=== PATIENT | female | born 1940 | race Caucasian/White ===

== ENCOUNTER 2018-06-10 16:13 | Inpatient (IN) | payer MEDICARE ==
--- NOTE | 2018-06-10 16:43 | ED ---
Dizziness - HPI Summary HPI Summary: This is scribe Crescencio Monroe documenting for attending Brian Luna MD. A 78 y/o female accompanied by her daughter presents to ED c.o dizziness. Additionally c/o near syncopal/syncopal episodes, fast HR, cold sweats and generalized weakness. Currently, the patient doesn't know how to describe her symptoms, but she feels weak, not dizzy. As per triage, "Pt c/o abd cramping, diarrhea, palpitations with sweating, nausea, and near syncope. Pt says she has had 3 episodes of these symptoms. Pt recently diagnosed with afib". According to the patient, she has been experiencing dizziness for the past week. Patient was sent to cardiology for swelling in the legs and she was put on stockings and Eliquis. As per daughter, the patient had cold sweats, dizziness, syncopal and near syncope episodes along with a HR topping at 130. It was noted that the patient could not get out of her car to come to ED because of the weakness. Patient did have a 8-month rash. I, Dr. Luna, personally performed the services described in this documentation as scribed in my presence and it is both accurate and complete. - History Of Current Complaint Chief Complaint: EDGeneral Stated Complaint: NEAR SYNCOPE/WEAKNESS Time Seen by Provider: 06/10/18 16:27 Hx Obtained From: Patient Onset/Duration: Still Present, Suddenly Timing: Constant Severity Currently: None Character: Weak, Dizzy Aggravating Factor(s): Nothing Alleviating Factor(s): Nothing Associated Signs And Symptoms: Positive: Change In Medication, Chills - Allergies/Home Medications Allergies/Adverse Reactions: Allergies Allergy/AdvReac Type Severity Reaction Status Date / Time Sulfa (Sulfonamide Allergy Nausea And Verified 06/10/18 16:33 Antibiotics) Vomiting PMH/Surg Hx/FS Hx/Imm Hx Endocrine/Hematology History: Reports: Hx Thyroid Disease - thyroid CA Denies: Hx Diabetes Cardiovascular History: Reports: Hx Hypertension Denies: Hx Pacemaker/ICD GI History: Reports: Hx Diverticulosis, Other GI Disorders - polyps History: Reports: Other Problems/Disorders - overactive bladder, bladder infection Musculoskeletal History: Reports: Other Musculoskeletal History - sciatica Sensory History: Reports: Hx Contacts or Glasses Denies: Hx Hearing Aid Opthamlomology History: Reports: Hx Contacts or Glasses Neurological History: Reports: Hx Nerve Disease - SCIATICA Psychiatric History: Reports: Hx Anxiety Denies: Hx Panic Disorder - Cancer History Cancer Type, Location and Year: THYROID Hx Chemotherapy: Yes Hx Radiation Therapy: Yes - Surgical History Surgery Procedure, Year, and Place: HYSTERECTOMY, THYROID, HAND SURGERY ( FORGETS WHICH HAND) Infectious Disease History: No Infectious Disease History: Denies: Traveled Outside the [place] in Last 30 Days - Family History Known Family History: Positive: Other - no FHx of breast cancer - Social History Alcohol Use: Occasionally Substance Use Type: Reports: None Smoking Status (MU): Never Smoked Tobacco Review of Systems Positive: Chills, Skin Diaphoresis. Negative: Fever Positive: Other - POSITIVE: Subjective tachycardia Positive: Abdominal Pain Positive: Edema Neurological: Other - POSITIVE: Dizziness Positive: Weakness All Other Systems Reviewed And Are Negative: Yes Physical Exam - Summary Physical Exam Summary: Appearance: The patient is well-nourished in no acute distress and in no acute pain. Skin: The skin is warm and dry and skin color reflects adequate perfusion. HEENT: The head is normocephalic and atraumatic. The pupils are equal and reactive. The conjunctivae are clear and without drainage. Nares are patent and without drainage. Mouth reveals moist mucous membranes and the throat is without erythema and exudate. The external ears are intact. The ear canals are patent and without drainage. The tympanic membranes are intact. Neck: The neck is supple with full range of motion and non-tender. There are no carotid bruits. There is no neck vein distension. Respiratory: Chest is non-tender. Lungs are clear to auscultation and breath sounds are symmetrical and equal. Cardiovascular: Heart is regular rate and rhythm. There is no murmur or rub auscultated. There is no peripheral edema and pulses are symmetrical and equal. Abdomen: The abdomen is soft and non-tender. There are normal bowel sounds heard in all four quadrants and there is no organomegaly palpated. Musculoskeletal: There is no back tenderness noted. Extremities are non-tender with full range of motion. There is good capillary refill. There is no peripheral edema or calf tenderness elicited. Neurological: Patient is alert and oriented to person, place and time. The patient has symmetrical motor strength in all four extremities. Cranial nerves are grossly intact. Deep tendon reflexes are symmetrical and equal in all four extremities. Psychiatric: The patient has an appropriate affect and does not exhibit any anxiety or depression. Triage Information Reviewed: Yes Vital Signs On Initial Exam: Initial Vitals Temp Pulse Resp BP Pulse Ox 97.5 F 61 14 171/86 100 06/10/18 16:15 06/10/18 16:15 06/10/18 16:15 06/10/18 16:15 06/10/18 16:15 Vital Signs Reviewed: Yes Diagnostics - Vital Signs Vital Signs Temp Pulse Resp BP Pulse Ox 06/10/18 16:40 98 06/10/18 16:36 52 17 162/105 99 06/10/18 16:35 67 14 98 06/10/18 16:15 97.5 F 61 14 171/86 100 - Laboratory Result Diagrams: 06/10/18 16:48 06/10/18 16:48 Lab Statement: Any lab studies that have been ordered have been reviewed, and results considered in the medical decision making process. - EKG 1624 Cardiac Rate: NL - 61 BPM EKG Interpretation: Junctional rhythm and ventricular coupling Dizzy Course/Dx - Course Course Of Treatment: Ms. Ruth presents with several worrisome sounding episodes of palpitations with near syncope and generally feeling very unwell during them. While I was in the room she had a run of ventricular bigeminy. I' m concerned that she may be having runs of V. tach with which she is very symptomatic and consult the hospitalist for monitoring and workup. - Diagnoses Provider Diagnoses: Syncope, Bigeminy - Provider Notifications Discussed Care Of Patient With: Neetu Chase Time Discussed With Above Provider: 17:32 Instructed by Provider To: Other - Accepts patient for admission. - Critical Care Time Critical Care Time: 30-74 min Discharge - Sign-Out/Discharge Documenting (check all that apply): Patient Departure - ADMIT - Discharge Plan Condition: Stable Disposition: ADMITTED TO [facility] Referrals: Jeniffer Johnston [employer]ER [Primary Care Provider] - - Billing Disposition and Condition Condition: STABLE Disposition: Admitted to [facility]
[2018-06-10 17:03] LABS: ABS Basophils 0 10^3/ul (0-0.2); ABS Eosinophils 0.1 10^3/ul (0-0.6); ABS Lymphocytes 1.2 10^3/ul (1.0-4.8); ABS Monocytes 0.4 10^3/ul (0-0.8); ABS Neutrophils 4.8 10^3/ul (1.5-7.7); ABS Nucleated RBC 0 10^3/ul; Eosinophil % 1.5 % (0-6); Hematocrit 42 % (35-47); Hemoglobin 13.7 g/dl (12.0-16.0); Mean Corpuscular HGB Conc 33 g/dl (31-36); Mean Corpuscular Hemoglobin 30 pg (27-31); Mean Corpuscular Volume 89 fL (80-97); Nucleated Red Blood Cells % 0; Platelet Count 233 10^3/ul (150-450); Red Blood Count 4.66 10^6/ul (4.00-5.40); Red Cell Distribution Width 13 % (10.5-15); White Blood Count 6.6 10^3/ul (3.5-10.8)
[2018-06-10 17:12] LABS: INR 1.15 (0.77-1.02)
[2018-06-10 17:18] LABS: EGFR Non-African American 58.6 (>60)
[2018-06-10] MEDS ORDERED: NS 0.9% 1000 ML* 1,000 ML IV ONE (17:19)
--- OUTSIDE RECORDS SUMMARY | 2018-06-10 17:20 | XMS REPORT ---
:1940 External Reference #:[id number] Author Organization [employer] Address [address] [place] [address] Phone [phone] Care Team Providers Name Role Phone Fawn Santana MD Care Team Information Road Maker Unavailable Jeniffer Johnston NP Primary Care Physician Unavailable Payers Type Date Identification Numbers Payment Provider Subscriber Medicare Primary Policy Number: [id number] Medicare Angella Ruth PayID: [id number] [address] [place] [address] [facility] Policy Number: [id number] [facility] Angella Ruth Group Name: Medicare [id number] PayID: [id number] [place] [address] Problems Date Description Provider Status Onset: 07/20/2016 Displacement of lumbar intervertebral disc YOBANI Muñiz Active without myelopathy Family History Date Family Member(s) Problem(s) Comments General Cancer Father Coronary Artery Disease (CAD) Father due to Colon Cancer () - age 62 Father [place] Mother Hypertension Mother due to Lung Cancer () - age 64 Mother [place] First Daughter Rheumatoid Arthritis Second Daughter Hypercholesterolemia First Brother Hypertension First Brother Hypercholesterolemia Second Brother Hypertension Second Brother Hypercholesterolemia Third Brother Hypertension Third Brother Rheumatoid Arthritis First Sister Arthritis First Sister IN Social History Type Date Description Comments Marital Status Lives With Spouse 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 Cigarette Use Never Smoked Cigarettes ETOH Use Occasionally consumes alcohol Smoking Patient has never smoked Recreational Drug Use Denies Drug Use Daily Caffeine Consumes on average 2 cups of regular coffee per day Exercise Type/Frequency Exercises sporadically depending on the swelling/ Allergies, Adverse Reactions, Alerts Date Description Reaction Status Severity Comments 07/20/2016 NSAIDs active 07/20/2016 Sulfa Antibiotics active 04/14/2018 Macrobid Vomitting active Mild to Moderate Medications Medication Date Status Form Strength Qnty SIG Indications Ordering Provider Eliquis 05/11 Active Tablets 5mg 180ta 1 by Jose Jackson /Jermaine bs mouth Trell, twice a DO FACC day Polyethylene Glycol Active Powder 3350NF 1 heaping Unknown 3350 /0000 tsp 1-2 times daily Levothyroxine Sodium Active Tablets 75mcg Take 1 Unknown /0000 Tablet By Mouth Daily Oxybutynin Chloride Active Tablets 5mg Take 1 Unknown /0000 Tablet By Mouth Twice A Day Triamcinolone Active Cream 0.1% Apply To Unknown Acetonide /0000 Rash On Legs Daily. Alprazolam Active Tablets 0.25mg 1 tab 3 Unknown /0000 times a day as needed Atenolol Active Tablets 25mg 1 daily Unknown /0000 Align Active Capsules 4mg 1 by Unknown /0000 mouth every day as directed Lisinopril-Hydrochlo Active Tablets 10-12.5mg Take 1 Unknown rothiazide /0000 Tablet By Mouth Every Day Gabapentin Hx Capsules 100mg Unknown /0000 - 03/25 Prednisone Hx Tablets 10mg Unknown /0000 - 03/25 Tramadol HCL Hx Tablets 50mg Unknown / - 03/25 Diazepam Hx Tablets 5mg Unknown / - 03/25 Ondansetron Hx Tablets 4mg Unknown /0000 Dispers - 03/25 Amlodipine Besylate Hx Tablets 5mg Unknown / - 03/25 Cyclobenzaprine HCL Hx Tablets 5mg Take 1-2 Unknown /0000 Tablets - By Mouth 03/25 Daily as Directed Tizanidine HCL Hx Tablets 2mg Unknown /0000 - 03/25 Hydrochlorothiazide Hx Tablets 25mg Take 1/2 Unknown /0000 Tablet By - Mouth 05/10 Once Daily For Blood Pressure Medications Administered in Office Medication Date Status Form Strength Qnty SIG Indications Ordering Provider Inj, Administered Injection Jose Jackson Regadenoson, 018 DO Trell 0.1 MG FACC Technetium TC Administered Injection Jose Cai DO Tetrofosmin, FACC Per Unit Dose Up To 40 Millicuries Vital Signs Date Vital Result Comment 05/18/2018 Height 70 inches 5'10" Weight 149.00 lb Heart Rate 60 /min BP Systolic Sitting 132 mmHg Rue reg cuff BP Diastolic Sitting 86 mmHg Rue reg cuff BP Systolic Standing 126 mmHg Rue BP Diastolic Standing 84 mmHg Rue Respiratory Rate 14 /min BMI (Body Mass Index) 21.4 kg/m2 Ejection Fraction 55-60% 05/10/18 04/26/2018 Height 70 inches 5'10" Weight 154.00 lb Heart Rate 78 /min BP Systolic Sitting 152 mmHg BP Diastolic Sitting 70 mmHg Respiratory Rate 18 /min BMI (Body Mass Index) 22.1 kg/m2 07/20/2016 Height 70 inches 5'10" Weight 155.00 lb Heart Rate 76 /min BP Systolic Sitting 142 mmHg BP Diastolic Sitting 80 mmHg Pain Level 5 BMI (Body Mass Index) 22.2 kg/m2 Results Description No Information Procedures Date CPT Code Description Status 05/18/2018 12079 EKG Tracing & Interpretation Completed 05/11/2018 50633 Stress Test Completed 05/11/2018 76756 Myocardial Perfusion Imaging Tomographic (Spect) Completed Multiple Studies 05/10/2018 60353 ECHO Transthoracic, Real-Time 2D With Doppler And Color Completed Flow 05/10/2018 66638 ECHO Transthoracic, Real-Time 2D With Doppler And Color Completed Flow 04/26/2018 18571 EKG Tracing & Interpretation Completed 04/05/2018 41824 Destruction Of Lesions 15+ Completed 08/14/2008 61688 EKG, Interpretation Only Completed Encounters Type Date Location Provider CPT E/M Dx Office Visit 04/26/2018 [facility] [place] [place] [address] R06.02 10:40a [facility] FACC R94.31 I49.3 Office Visit 04/19/2018 10:40a [facility] [place] [address] L57.0 R60.0 Office Visit 04/05/2018 4:10p [facility] [place] [address] R60.0 Z08 Z85.828 L57.0 Office Visit 07/20/2016 10:00a [facility] Cadence Montez PA-C [address] [facility] Office Visit 07/18/2016 11:10a [facility] Jackson, PRESSED OR BLOWN GLASS WORKER [address]923 M54.9 [facility] E89.0 M51.26 N32.81 Office Visit 07/17/2016 11:09a [facility] Andrew hSen, [address] M54.9 Assoc,pc PA Hospitalists E89.0 M51.26 N32.81 Plan of Care Future Appointment(s):05/19/2018 11:30 am - Tony Vaughan MD at [facility] Ukzvhiybqiz25/25/2018 - Jose Cai, FACCI48.0 Paroxysmal atrial fibrillationComments:Do not take any aspirin or NSAID's. The only over the counter pain medication you can take is tylenol (acetaminophen)Follow up:f/u March,I10 Essential (primary) hypertension
--- OUTSIDE RECORDS SUMMARY | 2018-06-10 17:21 | XMS REPORT ---
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 [place] [address] Problems Description No Information Family History Date Family Member(s) Problem(s) Comments : (age 62 Years) Father due to Cancer, Colon Father CAD Father NM Father due to TB () : (age 64 Years) Mother due to Cancer, Lung Mother Hypertension Mother NM Onset: (age 46 Years) First Daughter Rheumatoid Arthritis Second Daughter Hypercholesterolemia Siblings 7 First Brother Hypertension First Brother Hypercholesterolemia Second Brother Hypertension Second Brother Hypercholesterolemia Third Brother Hypertension Third Brother Rheumatoid Arthritis First Sister Sister With Arthritis,NM Social History Type Date Description Comments Marital Status Lives With Spouse Diet Healthy, Well Balanced 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 Goes to Work Status Not Currently Working Cigarette Use Never Smoked Cigarettes ETOH Use rare alcohol Smoking Patient has never smoked Daily Caffeine Consumes on average 2 cups of coffee per day Enjoy Exercising Enjoys exercising more active in [place], rides bikes, plays tennis, walks 2.5 miles daily Allergies, Adverse Reactions, Alerts Date Description Reaction Status Severity Comments 08/03/2016 Sulfa active emesis 04/04/2018 Macrobid active vomitting 10/08/2011 NKDA inactive Medications Medication Date Status Form Strength Qnty SIG Indications Ordering Provider Ciprofloxacin HCL 05/13 Active Tablets 250mg 6tabs 1 by mouth N39.0 Leticia twice a nina Bartholomew M.D., R.D. Lisinopril-Hydroc 05/03 Active Tablets 10-12.5mg 30tab 1 by mouth I10 wnti hlorothiazide s every day [facility] Tizanidine HCL 04/15 Active Capsules 2mg 30cap take 1 s capsule by Jayy Johnston, mouth up [facility] to 3 times per day as needed for muscle spasm Shingrix 04/04 Active Suspension 50mcg 1unit inject Rec s 0.5ml Jayy Johnston intramuscu DIRECT[facility]-Jose Alberto lar Atenolol 04/04 Active Tablets 25mg 30tab 1 by mouth I10 s every day [facility]OMA [facility] Oxybutynin 02/22 Active Tablets 5mg 180ta 1 by mouth F41.9 nt Chloride bs twice a Jayy Johnston, day [facility] Alprazolam 10/15 Active Tablets 0.25mg 30tab 1 by mouth F41.9 s three Jayy Johnston, times a [facility] day as needed anxiety Miralax 10/15 Active Powder 3350NF 1 heaping teaspoon Jayy Johnston, by mouth 1 [facility] or 2 times daily for stools, Levothyroxine 10/23 Active Tablets 75mcg 90tab Take 1 E03.9 Shawnti Sodium s Tablet By Jayy Johnston, Mouth [facility] Daily Align 00 Active Capsules 4mg 1 by mouth Unknown /0000 every day as directed Eliquis Active Tablets 5mg 1 by mouth Unknown /0000 twice a day Keflex 02/28 Hx Capsules 500mg 14cap 1 tab by Delvis s mouth Thais - twice MD geovanni 03/03 day Pyridium 02/25 Hx Tablets 100mg 15tab 1 tab by Jamil9 Delvis s mouth Thais - three MD 03/03 times day as needed Cipro 02/25 Hx Tablets 500mg 6tabs take 1 R31.9 Delvis tablet by Thais - MD france 03/03 every hours for 3 days for infection Oxybutynin 08/21 Hx Tablets ER 10mg 90tab take 1 F41.9 Shawnti Chloride ER 24HR s tablet Jayy Johnston, - once daily [facility] 02/22 Ciprofloxacin HCL 08/03 Hx Tablets 250mg 10tab 1 by mouth N39.0 s twice a Jayy Johnston, - day for [facility] 08/08 urine infection Acetaminophen-Cod 05/08 Hx Tablets 300-30mg 30tab 1 or 2 Shawmaryi eine #3 s before bed Jayy Johnston, - if needed [facility] 10/12 for severe pain Naproxen 05/04 Hx Tablets 500mg 60tab one tab by mary s mouth Jayy Johnston, - twice [facility] 10/12 daily food for pain/infla mmation Tizanidine HCL 04/28 Hx Tablets 2mg 30tab take 1 S39.012A s tablet by Jm, - mouth M.D. 10/12 times daily as needed for muscle spasm Prednisone 04/28 Hx Tablets 20mg 13tab 3 by mouth S39.012A s every day RJamel Johnston, - x 2days, 2 [facility] 10/12 by mouth /2015 every day x 2 days, 1 by mouth every day x 2 days, 1/2 by mouth every day x 2 days Cyclobenzaprine 04/25 Hx Tablets 5mg 30tab take 1-2 Leticia HCL s tablets by Puma, - mouth M.D., 04/28 R.D. /2015 Oxybutynin 10/15 Hx Tablets 5mg 180ta 1 by mouth F41.9 Shawnti Chloride bs twice a Jayy Johnston, - day [facility] 08/21 Amlodipine 10/15 Hx Tablets 5mg 90tab Take 1 I10 wnti Besylate s Tablet By Jayy Johnston, - Mouth Once [facility] 04/04 Daily For Blood Pressure Azithromycin 10/15 Hx Tablets 250mg 6tabs 2 by mouth 486 today then Jayy Johnston, - 1 by mouth [facility] 10/23 daily for 4 days Proventil HFA 10/15 Hx Aerosol 108(90Bas 1unit 2 puffs 486 e) s every 4 Jayy Johnston, - mcg/Act hours if [facility] 10/23 needed cough, wheeze, shortness of breath Meloxicam 10/10 Hx Tablets 15mg 90tab 1 po daily 719.46 s for pain, Jayy Johnston, - take with [facility] 10/23 Citracal + D3 10/08 Hx Tablets 315-250mg daily -Unit Jayy Johnston, - [facility] 10/10 Oxybutynin 03/13 Hx Tablets ER 10mg 90tab take 1 F41.9 Shawnti Chloride ER 24HR s tablet Jayy Johnston, - once daily [facility] 10/15 Prednisone 09/15 Hx Tablets 20mg 10tab 2 tabs po 782.1 s qday x 5 Shaheen, - days FLAMER AFTER LASTING 10/06 Tagamet HB 09/15 Hx Tablets 200mg 10tab 1 tab po 782.1 Maya s bid x 5 Shaheen, - days FLAMER AFTER LASTING 10/06 Levothyroxine 10/03 Hx Tablets 112mcg 1 po qd 244.9 Huma Sodium Geovanni. Camila Woo, 10/06 [facility] /2009 Ativan 10/03 Hx Tablets 0.5mg 270ta 1 by mouth F41.9 bs three Jayy Johnston, - times a [facility] 10/15 day needed anxiety code a Physical Therapy 04/08 Hx Evaluate 723.1 Huma /2008 and treat A. - neck pain, Chilo, 10/03 degenerati [facility] ve disc disease Keflex 03/07 Hx Capsules 500mg 14cap one po bid s for 7 days A. - Chilo, 04/08 [facility]. Ativan 11/19 Hx Tablets 0.5mg 30tab 1 po tid s prn K.W. - anxiety Hansel, 04/08 M.D. Atenolol 10/28 Hx Tabs 25mg 90tab take 1 s tablet A. - once daily Chilo, 04/08 [facility] Synthroid 09/11 Hx Tablets 125mcg 30tab 1 PO qd 244.9 s Camila Louis MD 04/08 Ativan 09/11 Hx Tablets 0.5mg 30tab 1 po tid s prn K.W. - anxiety Hansel, 11/19 M.D. Miralax 09/11 Hx Packet 3350NF TS 17 gm po 564.01 qd prn K.W. - constipati Hansel, 04/08 on, february.. increase as needed to obtain one full BM daily Fine Needle 06/26 Hx Right Huma Aspiration thyroid A. - nodule , 04/08 [facility] Zanaflex 03/20 Hx Tablets 4mg 40tab 1 or two 307.81 s po at hs A. - prn muscle Chilo, 09/11 spasm [facility] Physical Therapy 03/20 Hx neck 307.81 injury K.W. - with spasm Hansel, 04/08 causing M.D. tension headaches. Ditropan XL 03/20 Hx Tablets ER 10mg 90tab one po qd 24HR s for urine Jayy Johnston, - DIRECT[facility] 03/13 Ditropan 10/11 Hx Tablets 5mg 180ta 1bid prn - bs take one K.W. - tablet by Hansel, 03/20 mouth M.Louis twice daily as needed Ambien 09/16 Hx Tablets 10mg 30tab 1 po hs s prn Priscila Hamm, 09/11 M.D. Sonata 04/13 Hx Capsules 10mg 20cap one qhs 780.50 Huma s prn sleep Josafat Woo, 09/18 [facility] Diflucan 10/10 Hx Tablets 150mg 1tabs 1 tablet 616.10 once prn Priscila Hamm, 09/03 M.D. Hydrochlorothiazi 10/10 Hx Tablets 25mg 90tab take one I10 Jeniffer s cristal Johnston - tablet by DEMETRIA-C 05/03 mouth time daily for blood pressure Atenolol 09/05 Hx Tablets 25mg 90tab 1 po qd V70.0 s Josafat Woo, 09/11 [facility].N[facility]P.C. /2007 401.9 Sphygnomanometer, 09/05/2004 - Hx 1units Check BP Luli Francois Home 04/08/2009 Daily Or prn. Ramona Hamm Premarin - Hx Tablets 0.62 30tabs 1 po qd Carrie, O H, 09/03/2005 5mg MD Indocin - Hx Capsules 50mg 180caps 1 po bid Huma A. 09/11/2008 Shailesh WooN.P.CJamel Ditropan XL - Hx TB24 10mg 90.000unit Take 1 Luli Francois 10/11/2007 s tablet by Hansel mouth M.Louis daily Cytomel 25 mcg. - Hx 12/ tab 244 Unknown 10/03/2009 bid .9 Levothyroxine Sodium - Hx Tablets 125m 1 po qd 244 Unknown 10/03/2009 cg .9 Levothyroxine Sodium - Hx Tablets 88mc 90tabs 1 po 244 Shawnti R. 10/23/2014 g daily .9 Storm, [facility] Immunizations CPT Code Status Date Vaccine Lot # [id number] Given 07/02/2017 Influenza Vaccine High Dose PF [id number] 36876 Given 07/11/2016 [place] [address] Given 10/15/2015 Influenza Virus Vaccine, Quadrivalent, 3 Yr > Quad, Preserv Free 12206 Given 04/29/2015 Prevnar-13 Pneumococcal Conjugate Vaccine [id number] 19991 Given 07/13/2014 Influenza Virus Vaccine, Quadrivalent, 3 Yr > Quad, Preserv Free 25732 Given 07/07/2013 Influenza Vaccine-Preservative Free 3 Yrs And Above 64970 Given 07/06/2012 Influenza Vaccine-Preservative Free 3 Yrs And Above 10293 Given 10/08/2011 Tdap (Adacel) [id number] 93449 Given 10/08/2011 Influenza Vaccine-Preservative Free 3 Yrs And [id number] Above 30953 Given 07/28/2010 Influenza Vaccine-Preservative Free 3 Yrs And Above 44197 Given 10/03/2009 Zoster Vaccine [id number] 26654 Given 08/28/2008 Pneumovax 23 (PPSV23) 65+ years or high risk 2 to 64 year old 35401 Given 08/28/2008 Influenza Virus Vaccine, 3 Yrs And Above Vital Signs Date Vital Result Comment 05/13/2018 Weight 152.00 lb Weight in kg's 68.947 BP Systolic 148 mmHg BP Diastolic 84 mmHg Heart Rate 64 /min Body Temperature 97.3 F Respiratory Rate 18 /min O2 % BldC Oximetry 98 % 05/03/2018 Weight 152.00 lb Weight in kg's 68.947 BP Systolic 170 mmHg BP Diastolic 90 mmHg Heart Rate 88 /min Body Temperature 96.9 F Respiratory Rate 16 /min 04/04/2018 Weight 152.00 lb Weight in kg's 68.947 BP Systolic 140 mmHg BP Diastolic 78 mmHg Heart Rate 72 /min Body Temperature 97.1 F Respiratory Rate 16 /min O2 % BldC Oximetry 98 % 03/03/2018 Weight 152.00 lb Weight in kg's 68.947 BP Systolic 148 mmHg BP Diastolic 88 mmHg Heart Rate 66 /min Body Temperature 98.4 F Respiratory Rate 18 /min 02/25/2017 Weight 152.00 lb Weight in kg's 68.947 BP Systolic 126 mmHg BP Diastolic 80 mmHg Heart Rate 78 /min Body Temperature 97.2 F Respiratory Rate 14 /min O2 % BldC Oximetry 99 % 10/12/2016 Weight 155.00 lb Weight in kg's 70.308 BP Systolic 140 mmHg BP Diastolic 68 mmHg Heart Rate 96 /min Body Temperature 96.5 F Respiratory Rate 14 /min Height 68 inches 5'8" BMI (Body Mass Index) 23.6 kg/m2 08/03/2016 Weight 152.00 lb Weight in kg's 68.947 BP Systolic 152 mmHg BP Diastolic 72 mmHg Heart Rate 60 /min Body Temperature 97.2 F Respiratory Rate 16 /min 04/28/2016 Weight 150.00 lb Weight in kg's 68.040 BP Systolic 119 mmHg BP Diastolic 80 mmHg Heart Rate 87 /min 10/15/2015 Weight 157.00 lb Weight in kg's 71.215 BP Systolic 149 mmHg BP Diastolic 88 mmHg Heart Rate 60 /min Height 67.5 inches 5'7.50" BMI (Body Mass Index) 24.2 kg/m2 04/29/2015 Weight 165.00 lb Weight in kg's 74.844 BP Systolic 130 mmHg BP Diastolic 78 mmHg Heart Rate 56 /min 10/23/2014 Weight 163.00 lb Weight in kg's 73.937 BP Systolic 150 mmHg BP Diastolic 80 mmHg Heart Rate 60 /min Height 68.5 inches 5'8.50" BMI (Body Mass Index) 24.4 kg/m2 10/15/2014 Weight 167.00 lb Weight in kg's 75.751 BP Systolic 144 mmHg BP Diastolic 66 mmHg Heart Rate 76 /min Body Temperature 99.7 F Height 69 inches 5'9" BMI (Body Mass Index) 24.7 kg/m2 O2 % BldC Oximetry 97 % 10/10/2013 Weight 165.00 lb Weight in kg's 74.844 BP Systolic 142 mmHg BP Diastolic 70 mmHg Heart Rate 80 /min Height 69 inches 5'9" BMI (Body Mass Index) 24.4 kg/m2 10/10/2012 Weight 164.00 lb Weight in kg's 74.390 BP Systolic 142 mmHg BP Diastolic 72 mmHg Heart Rate 80 /min Height 69 inches 5'9" BMI (Body Mass Index) 24.2 kg/m2 10/08/2011 Weight 162.00 lb Weight in kg's 73.483 BP Systolic 132 mmHg BP Diastolic 68 mmHg Heart Rate 64 /min Height 69 inches 5'9" BMI (Body Mass Index) 23.9 kg/m2 10/06/2010 Weight 161.00 lb Weight in kg's 73.030 BP Systolic 146 mmHg BP Diastolic 74 mmHg Heart Rate 72 /min Height 68.5 inches 5'8.50" BMI (Body Mass Index) 24.1 kg/m2 09/15/2010 Weight 161.00 lb Weight in kg's 73.030 BP Systolic 150 mmHg BP Diastolic 70 mmHg Heart Rate 72 /min Body Temperature 95.9 F 10/03/2009 Weight 152.00 lb Weight in kg's 68.947 BP Systolic 140 mmHg BP Diastolic 84 mmHg Heart Rate 76 /min Body Temperature 96.9 F Height 68.5 inches 5'8.50" BMI (Body Mass Index) 22.8 kg/m2 04/08/2009 Weight 160.00 lb Weight in kg's 72.576 BP Systolic 140 mmHg BP Diastolic 82 mmHg Heart Rate 98 /min 02/25/2009 Weight 165.00 lb Weight in kg's 74.844 BP Systolic 178 mmHg BP Diastolic 88 mmHg Heart Rate 84 /min 09/11/2008 Weight 168.00 lb Weight in kg's 76.205 BP Systolic 126 mmHg BP Diastolic 86 mmHg Heart Rate 78 /min Height 68.5 inches 5'8.50" BMI (Body Mass Index) 25.2 kg/m2 06/07/2008 Weight 178.00 lb Weight in kg's 80.741 BP Systolic 152 mmHg BP Diastolic 88 mmHg Heart Rate 62 /min Height 68.5 inches 5'8.50" BMI (Body Mass Index) 26.7 kg/m2 04/18/2008 Weight 178.00 lb Weight in kg's 80.741 BP Systolic 138 mmHg BP Diastolic 88 mmHg Heart Rate 60 /min Height 68.5 inches 5'8.50" BMI (Body Mass Index) 26.7 kg/m2 03/20/2008 Weight 180.00 lb Weight in kg's 81.648 BP Systolic 124 mmHg BP Diastolic 72 mmHg Heart Rate 80 /min Body Temperature 97.0 F Height 69 inches 5'9" BMI (Body Mass Index) 26.6 kg/m2 09/09/2007 Weight 185.00 lb Weight in kg's 83.916 BP Systolic 142 mmHg BP Diastolic 90 mmHg Heart Rate 60 /min Body Temperature 97.8 F Height 69 inches 5'9" BMI (Body Mass Index) 27.3 kg/m2 05/16/2007 Weight 178.00 lb Weight in kg's 80.741 BP Systolic 120 mmHg BP Diastolic 80 mmHg Heart Rate 80 /min Height 69 inches 5'9" BMI (Body Mass Index) 26.3 kg/m2 04/13/2007 Weight 180.00 lb Weight in kg's 81.648 BP Systolic 130 mmHg BP Diastolic 80 mmHg Heart Rate 80 /min Respiratory Rate 18 /min Height 69 inches 5'9" BMI (Body Mass Index) 26.6 kg/m2 09/03/2005 Weight 184.00 lb Weight in kg's 83.462 BP Systolic 130 mmHg BP Diastolic 80 mmHg Heart Rate 86 /min Respiratory Rate 18 /min Height 69 inches 5'9" BMI (Body Mass Index) 27.2 kg/m2 10/10/2004 Weight 179.00 lb Weight in kg's 81.194 BP Systolic 142 mmHg BP Diastolic 84 mmHg Heart Rate 58 /min Height 69 inches 5'9" BMI (Body Mass Index) 26.4 kg/m2 09/05/2004 Weight 176.00 lb Weight in kg's 79.834 BP Systolic 160 mmHg BP Diastolic 88 mmHg Heart Rate 62 /min Irregular Height 69 inches 5'9" BMI (Body Mass Index) 26.0 kg/m2 Results Test Date Test Result H/L Range Note Urine Culture And 05/13/2018 Urine Culture SEE RESULT BELOW 1 Sensitivities Urine DIP 05/13/2018 Leukocytes 2+ High Neg Urine Nitrites neg Neg Urobilinogen norm Norm Total Protein, Urine tr Neg Urine pH 6 5-6 Urine Blood 250 High Neg Specific Evangeline 1.010 1.01-1.02 Urine Ketones neg Neg Urine Bilirubin neg Neg Urine Glucose norm Norm CBC Auto Diff 04/04/2018 White Blood Count 6.9 10^3/uL 3.5-10.8 Red Blood Count 4.77 10^6/uL 4.00-5.40 Hemoglobin 14.4 g/dL 12.0-16.0 Hematocrit 43 % 35-47 Mean Corpuscular Volume 89 fL 80-97 Mean Corpuscular Hemoglobin 30 pg 27-31 Mean Corpuscular HGB Conc 34 g/dL 31-36 Red Cell Distribution Width 13 % 10.5-15 Platelet Count 239 10^3/uL 150-450 Mean Platelet Volume 7.6 um3 7.4-10.4 Abs Neutrophils 5.1 10^3/uL 1.5-7.7 Abs Lymphocytes 1.2 10^3/uL 1.0-4.8 Abs Monocytes 0.4 10^3/uL 0-0.8 Abs Eosinophils 0.1 10^3/uL 0-0.6 Abs Basophils 0 10^3/uL 0-0.2 Abs Nucleated RBC 0 10^3/uL Granulocyte % 73.7 % 38-83 Lymphocyte % 18.0 % Low 25-47 Monocyte % 5.5 % 0-7 Eosinophil % 2.2 % 0-6 Basophil % 0.6 % 0-2 Nucleated Red Blood Cells % 0 Comp Metabolic Panel 04/04/2018 Sodium 142 mmol/L 139-145 Potassium 3.5 mmol/L 3.5-5.0 Chloride 101 mmol/L 101-111 Co2 Carbon Dioxide 31 mmol/L 22-32 Anion Gap 10 mmol/L 2-11 Glucose 101 mg/dL High 70-100 Blood Urea Nitrogen 20 mg/dL 6-24 Creatinine 0.98 mg/dL High 0.51-0.95 BUN/Creatinine Ratio 20.4 High 8-20 Calcium 9.7 mg/dL 8.6-10.3 Total Protein 7.3 g/dL 6.4-8.9 Albumin 4.8 g/dL 3.2-5.2 Globulin 2.5 g/dL 2-4 Albumin/Globulin Ratio 1.9 1-3 Total Bilirubin 0.70 mg/dL 0.2-1.0 Alkaline Phosphatase 83 U/L 34-104 Alt 15 U/L 7-52 Ast 19 U/L 13-39 Egfr Non- 55.2 >60 Egfr 71.0 >60 2 Lipid Profile (Trig/Chol/HDL) 04/04/2018 Triglycerides 56 mg/dL 3 Cholesterol 216 mg/dL 4 HDL Cholesterol 82.0 mg/dL 5 LDL Cholesterol 123 mg/dL 6 Laboratory test finding 04/04/2018 TSH (Thyroid Stim Horm) 0.40 mcIU/mL 0.34-5.60 7 Hemoglobin A1c (Glyco HGB) 5.6 % 4.0-5.6 8 Magnesium 2.0 mg/dL 1.9-2.7 9 Laboratory test 02/25/2017 Urine Culture And SEE RESULT BELOW 10 finding Sensitivities Urine DIP 02/25/2017 Leukocytes 2+ High Neg Urine Nitrites neg Neg Urobilinogen norm Norm Total Protein, Urine trace Neg Urine pH 7 High 5-6 Urine Blood 250 High Neg Specific Evangeline 1.015 1.01-1.02 Urine Ketones neg Neg Urine Bilirubin neg Neg Urine Glucose norm Norm Comp Metabolic Panel 10/12/2016 Sodium 140 mmol/L 133-145 Potassium 3.4 mmol/L Low 3.5-5.0 Chloride 101 mmol/L 101-111 Co2 Carbon Dioxide 31 mmol/L 22-32 Anion Gap 8 mmol/L 2-11 Glucose 88 mg/dL 70-100 Blood Urea Nitrogen 22 mg/dL 6-24 Creatinine 0.98 mg/dL High 0.51-0.95 BUN/Creatinine Ratio 22.4 High 8-20 Calcium 9.3 mg/dL 8.6-10.3 Total Protein 6.9 g/dL 6.4-8.9 Albumin 4.5 g/dL 3.2-5.2 Globulin 2.4 g/dL 2-4 Albumin/Globulin Ratio 1.9 1-3 Total Bilirubin 0.50 mg/dL 0.2-1.0 Alkaline Phosphatase 74 U/L 34-104 Alt 12 U/L 7-52 Ast 19 U/L 13-39 Egfr Non- 55.5 >60 Egfr 71.3 >60 11 Lipid Profile (Trig/Chol/HDL) 10/12/2016 Triglycerides 88 mg/dL 12 Cholesterol 200 mg/dL 13 HDL Cholesterol 70.9 mg/dL 14 LDL Cholesterol 112 mg/dL 15 Laboratory test 10/12/2016 TSH (Thyroid Stim Horm) 0.41 mcIU/mL 0.34- 5.60 16 finding Laboratory test 08/03/2016 Urine Culture And SEE RESULT BELOW 17 finding Sensitivities Urine DIP 08/03/2016 Leukocytes ++ Neg Urine Nitrites POS Neg Urobilinogen NORM Norm Total Protein, Urine NEG Neg Urine pH 7 High 5-6 Urine Blood 250 High Neg Specific Evangeline 1.01 1.01-1.02 Urine Ketones NEG Neg Urine Bilirubin NEG Neg Urine Glucose NORM Norm Laboratory test finding 07/17/2016 Lactic Acid 1.3 mmol/L 0.5-2.0 18 CBC Auto Diff 07/17/2016 White Blood Count 9.4 10^3/uL 3.5-10.8 Red Blood Count 4.90 10^6/uL 4.0-5.4 Hemoglobin 14.3 g/dL 12.0-16.0 Hematocrit 42 % 35-47 Mean Corpuscular Volume 86 fL 80-97 Mean Corpuscular Hemoglobin 29 pg 27-31 Mean Corpuscular HGB Conc 34 g/dL 31-36 Red Cell Distribution Width 13 % 10.5-15 Platelet Count 278 10^3/uL 150-450 Mean Platelet Volume 7 um3 Low 7.4-10.4 Abs Neutrophils 7.9 10^3/uL High 1.5-7.7 Abs Lymphocytes 0.9 10^3/uL Low 1.0-4.8 Abs Monocytes 0.4 10^3/uL 0-0.8 Abs Eosinophils 0.1 10^3/uL 0-0.6 Abs Basophils 0 10^3/uL 0-0.2 Abs Nucleated RBC 0 10^3/uL Granulocyte % 84.0 % High 38-83 Lymphocyte % 10.1 % Low 25-47 Monocyte % 4.5 % 1-9 Eosinophil % 0.9 % 0-6 Basophil % 0.5 % 0-2 Nucleated Red Blood Cells % 0 Comp Metabolic Panel 07/17/2016 Sodium 133 mmol/L 133-145 Potassium 3.4 mmol/L Low 3.5-5.0 Chloride 99 mmol/L Low 101-111 Co2 Carbon Dioxide 21 mmol/L Low 22-32 Anion Gap 13 mmol/L High 2-11 Glucose 139 mg/dL High 70-100 Blood Urea Nitrogen 14 mg/dL 6-24 Creatinine 0.75 mg/dL 0.51-0.95 BUN/Creatinine Ratio 18.7 8-20 Calcium 9.3 mg/dL 8.6-10.3 Total Protein 7.5 g/dL 6.4-8.9 Albumin 4.5 g/dL 3.2-5.2 Globulin 3.0 g/dL 2-4 Albumin/Globulin Ratio 1.5 1-3 Total Bilirubin 0.70 mg/dL 0.2-1.0 Alkaline Phosphatase 76 U/L 34-104 Alt 13 U/L 7-52 Ast 17 U/L 13-39 Egfr Non- 75.5 >60 Egfr 97.1 >60 19 Laboratory test finding 07/17/2016 Lipase 10 U/L Low 11.0-82.0 C Reactive Protein 1.67 mg/L < 5.00 20 Urinalysis Profile 07/17/2016 Urine Color Straw Urine Appearance Clear Urine Specific Evangeline 1.008 Low 1.010-1.030 Urine pH 6.0 5-9 Urine Urobilinogen Negative Negative Urine Ketones 1+ Negative Urine Protein Negative Negative Urine Leukocytes Negative Negative Urine Blood 2+ Negative Urine Nitrite Negative Negative Urine Bilirubin Negative Negative Urine Glucose 1+(50 mg/dL) Negative Urine White Blood Cell Absent Absent Urine Red Blood Cell 1+(3-5/hpf) Absent Urine Bacteria Absent Absent CBC Auto Diff 10/15/2015 White Blood Count 6.1 10^3/uL 3.5-10.8 Red Blood Count 4.72 10^6/uL 4.0-5.4 Hemoglobin 14.0 g/dL 12.0-16.0 Hematocrit 43 % 35-47 Mean Corpuscular Volume 91 fL 80-97 Mean Corpuscular Hemoglobin 30 pg 27-31 Mean Corpuscular HGB Conc 33 g/dL 31-36 Red Cell Distribution Width 14 % 10.5-15 Platelet Count 219 10^3/uL 150-450 Mean Platelet Volume 7 um3 Low 7.4-10.4 Abs Neutrophils 4.2 10^3/uL 1.5-7.7 Abs Lymphocytes 1.4 10^3/uL 1.0-4.8 Abs Monocytes 0.4 10^3/uL 0-0.8 Abs Eosinophils 0.1 10^3/uL 0-0.6 Abs Basophils 0 10^3/uL 0-0.2 Abs Nucleated RBC 0 10^3/uL Granulocyte % 67.8 % 38-83 Lymphocyte % 23.0 % Low 25-47 Monocyte % 6.7 % 1-9 Eosinophil % 1.9 % 0-6 Basophil % 0.6 % 0-2 Nucleated Red Blood Cells % 0.1 Comp Metabolic Panel 10/15/2015 Sodium 139 mmol/L 133-145 Potassium 3.9 mmol/L 3.5-5.0 Chloride 102 mmol/L 101-111 Co2 Carbon Dioxide 30 mmol/L 22-32 Anion Gap 7 mmol/L 2-11 Glucose 96 mg/dL 70-100 Blood Urea Nitrogen 18 mg/dL 6-24 Creatinine 0.98 mg/dL High 0.51-0.95 BUN/Creatinine Ratio 18.4 8-20 Calcium 9.1 mg/dL 8.6-10.3 Total Protein 6.6 g/dL 6.4-8.9 Albumin 4.4 g/dL 3.2-5.2 Globulin 2.2 g/dL 2-4 Albumin/Globulin Ratio 2.0 1-3 Total Bilirubin 0.40 mg/dL 0.2-1.0 Alkaline Phosphatase 78 U/L 34-104 Alt 16 U/L 7-52 Ast 23 U/L 13-39 Egfr Non- 55.6 >60 Egfr 71.5 >60 21 Lipid Profile (Trig/Chol/HDL) 10/15/2015 Triglycerides 86 mg/dL 22 Cholesterol 193 mg/dL 23 HDL Cholesterol 61.9 mg/dL 24 LDL Cholesterol 114 mg/dL 25 Laboratory test finding 10/15/2015 TSH (Thyroid Stim Horm) 0.49 ?IU/mL 0.34-5.60 Urine DIP 10/15/2015 Leukocytes NEG Neg Urine Nitrites NEG Neg Urobilinogen NORM Norm Total Protein, Urine NEG Neg Urine pH 7 High 5-6 Urine Blood NEG Neg Specific Evangeline 1.02 1.01-1.02 Urine Ketones NEG Neg Urine Bilirubin NEG Neg Urine Glucose NORM Norm CBC No Diff 10/23/2014 White Blood Count 4.9 10^3/uL 4.8-10.8 Red Blood Count 4.92 10^6/uL 4.0-5.4 Hemoglobin 14.3 g/dL 12.0-16.0 Hematocrit 44 % 35-47 Mean Corpuscular Volume 89 fL 80-97 Mean Corpuscular Hemoglobin 29 pg 27-31 Mean Corpuscular HGB Conc 33 g/dL 31-36 Red Cell Distribution Width 13 % 10.5-15 Platelet Count 235 10^3/uL 150-450 Mean Platelet Volume 8 um3 7.4-10.4 Comp Metabolic Panel 10/23/2014 Sodium 139 mmol/L 133-145 Potassium 4.1 mmol/L 3.5-5.0 Chloride 105 mmol/L 101-111 Co2 Carbon Dioxide 26 mmol/L 22-32 Anion Gap 8 mmol/L 2-11 Glucose 103 mg/dL High 70-100 Blood Urea Nitrogen 16 mg/dL 6-24 Creatinine 1.03 mg/dL High 0.51-0.95 BUN/Creatinine Ratio 15.5 8-20 Calcium 9.1 mg/dL 8.6-10.3 Total Protein 6.6 g/dL 6.4-8.9 Albumin 4.1 g/dL 3.2-5.2 Globulin 2.5 g/dL 2-4 Albumin/Globulin Ratio 1.6 1-3 Total Bilirubin 0.70 mg/dL 0.2-1.0 Alkaline Phosphatase 85 U/L 34-104 Alt 14 U/L 7-52 Ast 17 U/L 13-39 Egfr Non- 52.7 >60 Egfr 67.7 >60 26 Laboratory test finding 10/23/2014 TSH (Thyroid Stimulating 0.27 IU/mL Low 0.34-5.60 Horm) Total T3 0.67 ng/mL Low 0.87-1.78 Free T4 1.35 ng/mL High 0.61-1.12 Lipid Profile (Trig/Chol/HDL) 10/23/2014 Triglycerides 87 mg/dL 27 Cholesterol 164 mg/dL 28 HDL Cholesterol 42.6 mg/dL 29 LDL Cholesterol 104 mg/dL 30 Urine DIP 10/23/2014 Specific Evangeline 1.015 1.01-1.02 Urine pH 5 5-6 Leukocytes trace Neg Urine Nitrites neg Neg Total Protein, Urine neg Neg Urine Glucose norm Norm Urine Ketones neg Neg Urobilinogen norm Norm Urine Bilirubin neg Neg Urine Blood trace Neg Laboratory test finding 10/15/2014 Flu Test A&B, [place] neg Laboratory test finding 08/07/2014 Free T4 1.03 ng/mL 0.61-1.12 Total T3 0.79 ng/mL Low 0.87-1.78 Free T3 2.80 pg/mL 2.5-3.9 TSH (Thyroid Stimulating Horm) 0.25 IU/mL Low 0.34-5.60 Laboratory test finding 05/03/2014 TSH (Thyroid 0.09 IU/mL Low 0.34-5.60 Stimulating Horm) Thyroglobulin AB Screen 05/03/2014 Thyroglobulin Antibody <20 IU/mL <22 31 Thyroglobulin Tumor Marker <0.1 ng/mL 32 Urine DIP 10/10/2013 Leukocytes NEG Neg Urine Nitrites NEG Neg Urine pH 7 High 5-6 Total Protein, Urine NEG Neg Urine Glucose NORM Norm Urine Ketones NEG Neg Urobilinogen NORM Norm Urine Bilirubin NEG Neg Urine Blood 50 High Neg Specific Evangeline 1.01 1.01-1.02 Lipid Profile (Trig/Chol/HDL) 10/10/2013 Triglycerides 114 mg/dL 40-200 Cholesterol 183 mg/dL Less than 200 HDL Cholesterol 68 mg/dL High 40-60 33 Cholesterol/HDL Ratio 2.7 Average 1-4.44 LDL Cholesterol 92.2 Less Than 100 34 Comp Metabolic Panel 10/10/2013 Sodium 135 mmol/L 133-145 Potassium 4.1 mmol/L 3.5-5.0 Chloride 103 mmol/L 101-111 Co2 Carbon Dioxide 27.0 mmol/L 22-32 Anion Gap 5.0 mmol/L 2-11 Glucose 81 mg/dL 70-100 Blood Urea Nitrogen 20 mg/dL 6-24 Creatinine 0.90 mg/dL 0.50-1.40 BUN/Creatinine Ratio 22.2 High 8-20 Calcium 9.0 mg/dL 8.1-9.9 Total Protein 5.9 g/dL Low 6.2-8.1 Albumin 4.0 g/dL 3.2-5.2 Globulin 1.9 g/dL Low 2-4 Albumin/Globulin Ratio 2.1 1-3 Total Bilirubin 0.7 mg/dL 0.4-1.5 Alkaline Phosphatase 82 U/L 30-110 Alt 14 U/L 14-54 Ast 20 U/L 12-42 Egfr Non- 61.7 >60 Egfr 79.4 >60 35 CBC No Diff 10/10/2013 White Blood Count 5.3 10^3/uL 4.8-10.8 Red Blood Count 4.49 10^6/uL 4.0-5.4 Hemoglobin 13.0 g/dL 12.0-16.0 Hematocrit 40 % 35-47 Mean Corpuscular Volume 89 fL 80-97 Mean Corpuscular Hemoglobin 29 pg 27-31 Mean Corpuscular HGB Conc 33 g/dL 31-36 Red Cell Distribution Width 14 % 10.5-15 Platelet Count 222 10^3/uL 150-450 Mean Platelet Volume 8 um3 7.4-10.4 CBC No Diff 10/10/2012 White Blood Count 7.1 10^3/uL 4.8-10.8 Red Blood Count 4.64 10^6/uL 4.0-5.4 Hemoglobin 13.8 g/dL 12.0-16.0 Hematocrit 42 % 35-47 Mean Corpuscular Volume 90 fL 80-97 Mean Corpuscular Hemoglobin 30 pg 27-31 Mean Corpuscular HGB Conc 33 g/dL 31-36 Red Cell Distribution Width 13 % 10.5-15 Platelet Count 217 10^3/uL 150-450 Mean Platelet Volume 8 um3 7.4-10.4 Comp Metabolic Panel 10/10/2012 Sodium 138 mmol/L 133-145 Potassium 3.8 mmol/L 3.5-5.0 Chloride 103 mmol/L 101-111 Co2 Carbon Dioxide 28.0 mmol/L 22-32 Anion Gap 7.0 mmol/L 2-11 Glucose 97 mg/dL 70-100 Blood Urea Nitrogen 18 mg/dL 6-24 Creatinine 1.00 mg/dL 0.50-1.40 BUN/Creatinine Ratio 18.0 8-20 Calcium 9.2 mg/dL 8.1-9.9 Total Protein 6.7 g/dL 6.2-8.1 Albumin 4.2 g/dL 3.2-5.2 Globulin 2.5 g/dL 2-4 Albumin/Globulin Ratio 1.7 1-3 Total Bilirubin 0.9 mg/dL 0.4-1.5 Alkaline Phosphatase 86 U/L 30-110 Alt 21 U/L 14-54 Ast 26 U/L 12-42 Egfr Non- 54.8 >60 Egfr 70.5 >60 36 Lipid Profile (Trig/Chol/HDL) 10/10/2012 Triglycerides 80 mg/dL 40-200 Cholesterol 204 mg/dL High Less than 200 HDL Cholesterol 66 mg/dL High 40-60 37 Cholesterol/HDL Ratio 3.1 Average 1-4.44 LDL Cholesterol 122.0 mg/dL High Less Than 100 38 Laboratory test finding 10/10/2012 TSH (Thyroid 0.13 miu/mL Low 0.34-5.60 Stimulating Horm) Urine DIP 10/10/2012 Leukocytes NEG Neg Urine Nitrites NEG Neg Urine pH 5 5-6 Total Protein, Urine NEG Neg Urine Glucose NORM Norm Urine Ketones NEG Neg Urobilinogen NORM Norm Urine Bilirubin NEG Neg Urine Blood NEG Neg Specific Evangeline N/A Low 1.01-1.02 Laboratory test finding 05/06/2012 Thyroglobulin AB Screen SEE BELOW () 39 Thyroglobulin,Tumor Marker 05/06/2012 Thyroglobulin AB SCRN <20 IU/mL < 22 40 Thyroglobulin Tumor Marker <0.1 ng/mL () 41 Surgical 04/05/2012 Surgical <SEE 42 Pathology Pathology NOTE> Laboratory test 10/08/2011 TSH 0.10 MIU/ML Low 0.34-5.60 finding Urine DIP 10/08/2011 Leukocytes + Neg Urine Nitrites NEG Neg Urine pH 5 5-6 Total Protein, Urine TRACE Neg Urine Glucose NORM Norm Urine Ketones NEG Neg Urobilinogen NORM Norm Urine Bilirubin NEG Neg Urine Blood 50+ High Neg Specific Evangeline NA Low 1.01-1.02 Lipid Profile (Trig/Chol/HDL) 10/08/2011 Triglyceride 80 mg/dL 40-200 Cholesterol 209 mg/dL High Less Than 200 43 High Density Lipoprotein 60 mg/dL 40-60 44 Cholesterol/HDL Ratio 3.48 AVERAGE 1-4.44 Low Density Lipoprotein 133 mg/dL High Less Than 100 45 Comp Metabolic Panel 10/08/2011 Sodium 139 mmol/L 135-145 Potassium 4.4 mmol/L 3.5-5.0 Chloride 106 mmol/L 101-111 Co2 (Carbon Dioxide) 27.0 mmol/L 22-32 Anion Gap 6.0 mmol/L 2-11 46 Glucose 98 mg/dL 70-100 BUN 19 mg/dL 6-24 Creatinine 1.0 mg/dL 0.50-1.40 One Over Creatinine 1.00 BUN/Creatinine Ratio 19.0 8-20 Calcium 9.1 mg/dL 8.1-9.9 Total Protein 6.2 GM/DL 6.2-8.1 Albumin 4.2 GM/DL 3.2-5.2 Globulin 2.0 GM/DL 2-4 Albumin/Globulin Ratio 2.1 1-3 Bilirubin Total 0.7 mg/dL 0.4-1.5 47 Alkaline Phosphatase 100 U/L 30-110 Alt (SGPT) 34 U/L 14-54 Ast (Sgot) 37 U/L 12-42 eGFR Non- 55.0 > 60 eGFR 70.7 > 60 48 CBC Auto Diff 10/08/2011 White Blood Count 5.4 CUMM 4.8-10.8 Red Cell Count 4.54 CUMM 4.2-5.4 Hemoglobin 13.7 g/dL 12.0-16.0 Hematocrit 40 % 35-47 Mean Corpuscular Volume 87 um3 79-97 Mean Corpuscular Hemoglob 30 pg 27-31 Mean Corpuscular HGB Cone 35 g/dL 32-36 Redcell Distribution WDTH 13 % 10.5-15 Platelet Count 236 CUMM 150-450 Mean Platelet Volume 7.4 um3 7.4-10.4 Gran % 75.6 % 38-83 Lymph % 17.0 % Low 25-47 Mononuclear % 5.3 % 1-9 Eosinophil % 1.7 % 0-6 Basophil % 0.4 % 0-2 Abs Lymphs 0.9 Low 1.0-4.8 Abs Mononuclear 0.3 0-0.8 Absolute Neutrophil Count 4.1 1.5-7.7 Abs Eosinophils 0.1 0-0.6 Abs Basophils 0 0-0.2 49 Laboratory test finding 03/13/2011 TSH 0.46 MIU/ML 0.34-5.60 Thyroglobulin,Tumor Marker <0.1 ng/mL () 50 CBC With Electronic Diff 10/06/2010 White Blood Count 6.0 CUMM 4.8-10.8 Red Cell Count 4.61 CUMM 4.2-5.4 Hemoglobin 13.8 g/dL 12.0-16.0 Hematocrit 41 % 35-47 Mean Corpuscular Volume 89 um3 79-97 Mean Corpuscular Hemoglob 30 pg 27-31 Mean Corpuscular HGB Cone 34 g/dL 32-36 Redcell Distribution WDTH 14 % 10.5-15 Platelet Count 244 CUMM 150-450 Mean Platelet Volume 6.6 um3 Low 7.4-10.4 Gran % 71.0 % 38-83 Lymph % 20.1 % Low 25-47 Mononuclear % 6.5 % 1-9 Eosinophil % 1.8 % 0-6 Basophil % 0.6 % 0-2 Abs Lymphs 1.2 1.0-4.8 Abs Mononuclear 0.4 0-0.8 Absolute Neutrophil Count 4.2 1.5-7.7 Abs Eosinophils 0.1 0-0.6 Abs Basophils 0 0-0.2 Comp Metabolic Panel 10/06/2010 Sodium 139 mmol/L 135-145 Potassium 3.7 mmol/L 3.5-5.0 Chloride 103 mmol/L 101-111 Co2 (Carbon Dioxide) 29.0 mmol/L 22-32 Anion Gap 7.0 mmol/L 2-11 51 Glucose 96 mg/dL 70-100 52 BUN 19 mg/dL 6-24 Creatinine 0.90 mg/dL 0.50-1.40 One Over Creatinine 1.10 BUN/Creatinine Ratio 21.1 High 8-20 Calcium 9.3 mg/dL 8.1-9.9 Total Protein 6.5 GM/DL 6.2-8.1 Albumin 4.4 GM/DL 3.2-5.2 Globulin 2.1 GM/DL 2-4 Albumin/Globulin Ratio 2.1 1-3 Bilirubin Total 0.7 mg/dL 0.4-1.5 53 Alkaline Phosphatase 107 U/L 30-110 Alt (SGPT) 26 U/L 14-54 Ast (Sgot) 24 U/L 12-42 eGFR Non- 66.2 > 60 eGFR 80.1 > 60 54 Urine DIP 10/06/2010 Leukocytes TRACE Neg Urine Nitrites NEG Neg Urine pH 5 5-6 Total Protein, Urine NEG Neg Urine Glucose NORM Norm Urine Ketones NEG Neg Urobilinogen NORM Norm Urine Bilirubin NEG Neg Urine Blood 50+ High Neg Specific Evangeline NA Low 1.01-1.02 Laboratory test 10/06/2010 Cytology <SEE NOTE> 55 finding Lipid Profile 10/06/2010 Triglyceride 116 mg/dL 40-200 (Trig/Chol/HDL) Cholesterol 242 mg/dL High Less Than 200 56 High Density Lipoprotein 71 mg/dL High 40-60 57 Cholesterol/HDL Ratio 3.41 AVERAGE 1-4.44 Low Density Lipoprotein 148 mg/dL High Less Than 100 58 Laboratory test finding 06/19/2010 Thyroxine Free 1.15 NG/ML 0.61-1.24 TSH 0.13 MIU/ML Low 0.34-5.60 Laboratory test finding 03/14/2010 TSH 0.06 MIU/ML Low 0.34-5.60 Laboratory test finding 10/03/2009 TSH 0.04 MIU/ML Low 0.34-5.60 Thyroxine Free 1.55 NG/ML High 0.61-1.24 59 Comp Metabolic Panel 10/03/2009 Sodium 139 mmol/L 135-145 Potassium 3.7 mmol/L 3.5-5.0 Chloride 100 mmol/L Low 101-111 Co2 (Carbon Dioxide) 29.0 mmol/L 22-32 Anion Gap 10.0 mmol/L 2-11 60 Glucose 98 mg/dL 70-100 61 BUN 22 mg/dL 6-24 Creatinine 1.00 mg/dL 0.50-1.40 One Over Creatinine 1.00 BUN/Creatinine Ratio 22.0 High 8-20 Calcium 9.6 mg/dL 8.1-9.9 62 Total Protein 6.5 GM/DL 6.2-8.1 Albumin 4.4 GM/DL 3.2-5.2 Globulin 2.1 GM/DL 2-4 Albumin/Globulin Ratio 2.1 1-3 Bilirubin Total 0.9 mg/dL 0.4-1.5 63 Alkaline Phosphatase 128 U/L High 30-110 Alt (SGPT) 27 U/L 14-54 Ast (Sgot) 25 U/L 12-42 eGFR Non- 58.8 > 60 eGFR 71.1 > 60 64 Lipid Profile (Trig/Chol/HDL) 10/03/2009 Triglyceride 98 mg/dL 40-200 Cholesterol 209 mg/dL High Less Than 200 65 High Density Lipoprotein 60 mg/dL 40-60 66 Cholesterol/HDL Ratio 3.48 AVERAGE 1-4.44 Low Density Lipoprotein 129 mg/dL High Less Than 100 67 Urine DIP 10/03/2009 Leukocytes neg Neg Urine Nitrites neg Neg Urine pH 5 5-6 Total Protein, Urine trace Neg Urine Glucose norm Norm Urine Ketones neg Neg Urobilinogen norm Norm Urine Bilirubin neg Neg Urine Blood about 250 Neg Specific Evangeline n/a Low 1.01-1.02 Laboratory test 10/03/2009 Cytology <SEE 68 finding NOTE> Laboratory test 07/29/2009 TSH 0.06 MIU/ML Low 0.34-5.60 finding Urine DIP 03/15/2009 Leukocytes neg Neg Urine Nitrites neg Neg Urine pH 5 5-6 Total Protein, Urine neg Neg Urine Glucose norm Norm Urine Ketones neg Neg Urobilinogen norm Norm Urine Bilirubin neg Neg Urine Blood tace Neg Specific Evangeline n/a Low 1.01-1.02 Laboratory test 03/15/2009 Urine Culture SN1 69 finding Sensitivi Laboratory test 03/04/2009 Urine Culture ENTEROBACTERIACE <SEE 70 finding Sensitivi NOTE> Urine DIP 02/25/2009 Leukocytes neg Neg Urine Nitrites neg Neg Urine pH 5 5-6 Total Protein, Urine neg Neg Urine Glucose norm Norm Urine Ketones neg Neg Urobilinogen norm Norm Urine Bilirubin neg Neg Urine Blood trace Neg Specific Evangeline na Low 1.01-1.02 Laboratory test finding 10/22/2008 Thyroxine Free 1.95 NG/ML High 0.61- 1.24 71 T3 Total 1.10 NG/ML 0.5-1.7 T3 Free 3.31 pg/mL 2.39-6.79 TSH 0.05 MIU/ML Low 0.34-5.60 Laboratory test finding 09/11/2008 TSH 15.18 MIU/ML High 0.34-5.60 Basic Metabolic Panel 09/11/2008 Sodium 137 mmol/L 135-145 Potassium 3.8 mmol/L 3.5-5.0 Chloride 101 mmol/L 101-111 Co2 (Carbon Dioxide) 27.0 mmol/L 22-32 Anion Gap 9.0 mmol/L 2-11 72 Glucose 94 mg/dL 70-100 73 BUN 21 mg/dL 6-24 Creatinine 1.00 mg/dL 0.50-1.40 One Over Creatinine 1.00 BUN/Creatinine Ratio 21.0 High 8-20 Calcium 9.2 mg/dL 8.1-9.9 74 Basic Metabolic Panel Stat 09/08/2008 Sodium 138 mmol/L 135-145 Potassium 3.0 mmol/L Low 3.5-5.0 Chloride 101 mmol/L 101-111 Co2 (Carbon Dioxide) 28.0 mmol/L 22-32 Anion Gap 9.0 mmol/L 2-11 75 Glucose 147 mg/dL High 70-100 76 BUN 12 mg/dL 6-24 Creatinine 0.90 mg/dL 0.50-1.40 One Over Creatinine 1.10 BUN/Creatinine Ratio 13.3 8-20 Calcium 9.2 mg/dL 8.1-9.9 77 CBC With Manual Diff 09/08/2008 White Blood Count 10.5 CUMM 4.8-10.8 Red Cell Count 5.53 CUMM High 4.2-5.4 Hemoglobin 15.9 g/dL 12.0-16.0 Hematocrit 48 % High 35-47 Mean Corpuscular Volume 86 um3 79-97 Mean Corpuscular Hemoglob 29 pg 27-31 Mean Corpuscular HGB Cone 34 g/dL 32-36 Redcell Distribution WDTH 12 % 10.5-15 Platelet Count 282 CUMM 150-450 Mean Platelet Volume 7.0 um3 Low 7.4-10.4 Polysegmented Neutrophil 79 % 38-83 Band Neutrophil 1 % 0-8 Lymphocyte 14 % Low 25-47 Monocyte 2 % 0-13 Atypical Lymph 4 % 0-6 Absolute Neutrophil Count 8.4 Anisocytosis SLIGHT Thyroid Panel 09/08/2008 Free Thyroxine 0.47 NG/ML Low 0.61-1.24 78 Thyroxine 5.2 g/dL 5-12 TSH 27.33 MIU/ML High 0.34-5.60 Laboratory test finding 09/08/2008 Troponin-I (TnI) 0.09 NG/ML High 0- 0.06 79 CMP Stat 09/02/2008 Sodium 140 mmol/L 135-145 Potassium 3.6 mmol/L 3.5-5.0 Chloride 104 mmol/L 101-111 Co2 (Carbon Dioxide) 27.0 mmol/L 22-32 Anion Gap 9.0 mmol/L 2-11 80 Glucose 119 mg/dL High 70-100 81 BUN 22 mg/dL 6-24 Creatinine 1.00 mg/dL 0.50-1.40 One Over Creatinine 1.00 BUN/Creatinine Ratio 22.0 High 8-20 Calcium 9.3 mg/dL 8.1-9.9 82 Total Protein 6.3 GM/DL 6.2-8.1 Albumin 4.0 GM/DL 3.2-5.2 Globulin 2.3 GM/DL 2-4 Albumin/Globulin Ratio 1.7 1-3 Bilirubin Total 0.6 mg/dL 0.4-1.5 Alkaline Phosphatase 98 U/L 30-110 Alt (SGPT) 25 U/L 14-54 Ast (Sgot) 32 U/L 12-42 Laboratory test finding 09/02/2008 PTT (Aptt) Stat 23.1 20.1-28.2 83 Protime 09/02/2008 Protime 11.7 10.9-13.3 Inr 0.93 84 CBC With Electronic Diff Stat 09/02/2008 White Blood Count 9.1 CUMM 4.8- 10.8 Red Cell Count 5.05 CUMM 4.2-5.4 Hemoglobin 14.4 g/dL 12.0-16.0 Hematocrit 43 % 35-47 Mean Corpuscular Volume 85 um3 79-97 Mean Corpuscular Hemoglob 29 pg 27-31 Mean Corpuscular HGB Cone 34 g/dL 32-36 Redcell Distribution WDTH 12 % 10.5-15 Platelet Count 266 CUMM 150-450 Mean Platelet Volume 7.1 um3 Low 7.4-10.4 Gran % 68.9 % 38-83 Lymph % 22.3 % Low 25-47 Mononuclear % 6.1 % 1-9 Eosinophil % 2.0 % 0-6 Basophil % 0.7 % 0-2 Abs Lymphs 2.0 1.0-4.8 Abs Mononuclear 0.6 0-0.8 Absolute Neutrophil Count 6.2 1.5-7.7 Abs Eosinophils 0.2 0-0.6 Abs Basophils 0.1 0-0.2 Laboratory test finding 08/28/2008 Calcium 8.6 mg/dL 8.1-9.9 85 Laboratory test finding 08/27/2008 Calcium 8.5 mg/dL 8.1-9.9 86 Laboratory test finding 08/27/2008 Calcium 8.9 mg/dL 8.1-9.9 87 Laboratory test finding 08/27/2008 Calcium 9.0 mg/dL 8.1-9.9 88 CBC With Electronic Diff 08/14/2008 White Blood Count 6.6 CUMM 4.8-10.8 89 Red Cell Count 4.76 CUMM 4.2-5.4 89 Hemoglobin 13.9 g/dL 12.0-16.0 89 Hematocrit 41 % 35-47 89 Mean Corpuscular Volume 86 um3 79-97 89 Mean Corpuscular Hemoglob 29 pg 27-31 89 Mean Corpuscular HGB Cone 34 g/dL 32-36 89 Redcell Distribution WDTH 13 % 10.5-15 89 Platelet Count 260 CUMM 150-450 89 Mean Platelet Volume 7.0 um3 Low 7.4-10.4 89 Gran % 75.9 % 38-83 89 Lymph % 17.1 % Low 20-45 89 Mononuclear % 5.5 % 1-9 89 Eosinophil % 1.2 % 0-6 89 Basophil % 0.3 % 0-2 89 Abs Lymphs 1.1 1.0-4.8 89 Abs Mononuclear 0.4 0-0.8 89 Absolute Neutrophil Count 5.0 1.5-7.7 89 Abs Eosinophils 0.1 0-0.6 89 Abs Basophils 0 0-0.2 89, 90 Basic Metabolic Panel 08/14/2008 Sodium 141 mmol/L 135-145 89 Potassium 4.3 mmol/L 3.5-5.0 89 Chloride 102 mmol/L 101-111 89 Co2 (Carbon Dioxide) 31.0 mmol/L 22-32 89 Anion Gap 8.0 mmol/L 2-11 89, 91 Glucose 96 mg/dL 70-100 89, 92 BUN 22 mg/dL 6-24 89 Creatinine 1.1 mg/dL 0.5-1.4 89 One Over Creatinine 0.90 89 BUN/Creatinine Ratio 20.0 8-20 89 Calcium 9.6 mg/dL 8.1-9.9 89, 93 Cytology Non Industry Segment Specialist 06/29/2008 Cytology Non Industry Segment Specialist <SEE 94 NOTE> Laboratory test 06/07/2008 TSH 1.43 MIU/ML 0.34-5.6 finding 0 Thyroxine Free 0.77 NG/ML 0.61-1.24 95 Liver Function Panel 06/07/2008 Total Protein 6.3 GM/DL 6.2-8.1 Albumin 3.9 GM/DL 3.2-5.2 Globulin 2.4 GM/DL 2-4 Albumin/Globulin Ratio 1.6 1-3 Bilirubin Total 0.6 mg/dL 0.4-1.5 Bilirubin Direct 0.1 mg/dL 0.1-0.5 Indirect Bilirubin 0.5 mg/dL 0.1-0.75 Alkaline Phosphatase 101 U/L 30-110 Alt (SGPT) 38 U/L 14-54 Ast (Sgot) 38 U/L 12-42 Urine DIP 04/18/2008 Leukocytes NEG Neg Urine Nitrites NGE Neg Urine pH 5 5-6 Total Protein, Urine NEG Neg Urine Glucose NORM Norm Urine Ketones NEG Neg Urobilinogen NORM Norm Urine Bilirubin NEG Neg Urine Blood TRACE Neg Specific Evangeline NA Low 1.01-1.02 Comp Metabolic Panel 04/10/2008 Sodium 140 mmol/L 135-145 Potassium 3.7 mmol/L 3.5-5.0 Chloride 103 mmol/L 101-111 Co2 (Carbon Dioxide) 29.0 mmol/L 22-32 Anion Gap 8.0 mmol/L 2-11 96 Glucose 104 mg/dL 70-105 BUN 18 mg/dL 6-24 Creatinine 1.0 mg/dL 0.5-1.4 One Over Creatinine 1.00 BUN/Creatinine Ratio 18.0 8-20 Calcium 9.2 mg/dL 8.1-9.9 97 Total Protein 6.1 GM/DL Low 6.2-8.1 Albumin 3.9 GM/DL 3.2-5.2 Globulin 2.2 GM/DL 2-4 Albumin/Globulin Ratio 1.8 1-3 Bilirubin Total 0.5 mg/dL 0.4-1.5 Alkaline Phosphatase 123 U/L High 30-110 Alt (SGPT) 43 U/L 14-54 Ast (Sgot) 38 U/L 12-42 Lipid Profile (Trig/Chol/HDL) 04/10/2008 Triglyceride 98 mg/dL 40-200 Cholesterol 198 mg/dL Less Than 200 98 High Density Lipoprotein 43 mg/dL 40-60 99 Cholesterol/HDL Ratio 4.60 AVERAGE High 1-4.44 Low Density Lipoprotein 135 mg/dL High Less Than 100 100 CBC With Electronic Diff 04/10/2008 White Blood Count 5.3 CUMM 4.8-10.8 Red Cell Count 4.59 CUMM 4.2-5.4 Hemoglobin 13.7 g/dL 12.0-16.0 Hematocrit 40 % 35-47 Mean Corpuscular Volume 87 um3 79-97 Mean Corpuscular Hemoglob 30 pg 27-31 Mean Corpuscular HGB Cone 34 g/dL 32-36 Redcell Distribution WDTH 13 % 10.5-15 Platelet Count 241 CUMM 150-450 Mean Platelet Volume 7.4 um3 7.4-10.4 Gran % 70.4 % 38-83 Lymph % 20.1 % 20-45 Mononuclear % 6.2 % 1-9 Eosinophil % 2.8 % 0-6 Basophil % 0.5 % 0-2 Abs Lymphs 1.1 1.0-4.8 Abs Mononuclear 0.3 0-0.8 Absolute Neutrophil Count 3.7 1.5-7.7 Abs Eosinophils 0.1 0-0.6 Abs Basophils 0 0-0.2 Comp Metabolic Panel 09/09/2007 One Over Creatinine 0.90 Anion Gap 8.0 mmol/L 2-11 101 Albumin/Globulin Ratio 1.8 1-3 Albumin 4.2 GM/DL 3.2-5.2 Alkaline Phosphatase 118 U/L High 30-110 Alt (SGPT) 28 U/L 14-54 Ast (Sgot) 28 U/L 12-42 BUN 19 mg/dL 6-24 Calcium 9.8 mg/dL 8.7-10.2 Chloride 103 mmol/L 101-111 Co2 (Carbon Dioxide) 28.0 mmol/L 22-32 Globulin 2.4 GM/DL 2-4 Glucose 94 mg/dL 70-105 Potassium 4.3 mmol/L 3.5-5.0 Sodium 139 mmol/L 135-145 Bilirubin Total 0.8 mg/dL 0.4-1.5 Total Protein 6.6 GM/DL 6.2-8.1 BUN/Creatinine Ratio 17.3 8-20 Creatinine 1.1 mg/dL 0.5-1.4 Liver Function Panel 05/16/2007 Albumin/Globulin Ratio 1.8 1-3 Albumin 4.2 GM/DL 3.2-5.2 Alkaline Phosphatase 98 U/L 30-110 Alt (SGPT) 44 U/L 14-54 Ast (Sgot) 56 U/L High 12-42 Bilirubin Direct < 0.1 mg/dL Low 0.1-0.5 Globulin 2.4 GM/DL 2-4 Bilirubin Total 0.5 mg/dL 0.4-1.5 Total Protein 6.6 GM/DL 6.2-8.1 Renal Function Panel 05/16/2007 BUN 27 mg/dL High 6-24 Calcium 9.3 mg/dL 8.7-10.2 Chloride 103 mmol/L 101-111 Co2 (Carbon Dioxide) 31.0 mmol/L 22-32 Glucose 83 mg/dL 70-105 Potassium 4.2 mmol/L 3.5-5.0 Sodium 140 mmol/L 135-145 Phosphorus 3.4 mg/dL 2.4-4.7 BUN/Creatinine Ratio 24.5 High 8-20 Creatinine 1.1 mg/dL 0.5-1.4 Lipid Profile 04/19/2007 Cholesterol/HDL Ratio 3.79 AVERAGE 1-4.44 102 (Trig/Chol/HDL) Cholesterol 216 mg/dL High Less Than 200 102, 103 Triglyceride 109 mg/dL 40-200 102 High Density Lipoprotein 57 mg/dL 40-60 102 Low Density Lipoprotein 137 mg/dL High Less Than 100 102, 104 Comp Metabolic Panel 04/19/2007 One Over Creatinine 0.90 102 Anion Gap 7.0 mmol/L 2-11 102, 105 Albumin/Globulin Ratio 1.7 1-3 102 Albumin 4.3 GM/DL 3.2-5.2 102 Alkaline Phosphatase 119 U/L High 30-110 102 Alt (SGPT) 47 U/L 14-54 102 Ast (Sgot) 45 U/L High 12-42 102 BUN 26 mg/dL High 6-24 102 Calcium 9.6 mg/dL 8.7-10.2 102 Chloride 106 mmol/L 101-111 102 Co2 (Carbon Dioxide) 28.0 mmol/L 22-32 102 Globulin 2.5 GM/DL 2-4 102 Glucose 95 mg/dL 70-105 102 Potassium 3.8 mmol/L 3.5-5.0 102 Sodium 141 mmol/L 135-145 102 Bilirubin Total 0.8 mg/dL 0.4-1.5 102 Total Protein 6.8 GM/DL 6.2-8.1 102 BUN/Creatinine Ratio 23.6 High 8-20 102 Creatinine 1.1 mg/dL 0.5-1.4 102 CBC With Electronic Diff 04/19/2007 White Blood Count 4.9 CUMM 4.8-10.8 102 Abs Basophils 0 0-0.2 102 Abs Eosinophils 0.1 0-0.6 102 Absolute Neutrophil Count 3.2 1.5-7.7 102 Abs Lymphs 1.2 1.0-4.8 102 Abs Mononuclear 0.4 0-0.8 102 Basophil % 0.6 % 0-2 102 Hematocrit 41 % 35-47 102 Hemoglobin 13.9 g/dL 12.0-16.0 102 Eosinophil % 2.5 % 0-6 102 Gran % 65.4 % 38-83 102 Lymph % 24.3 % 20-45 102 Mean Corpuscular HGB Cone 34 g/dL 32-36 102 Mean Corpuscular Hemoglob 30 pg 27-31 102 Mean Corpuscular Volume 88 um3 79-97 102 Mean Platelet Volume 7.4 um3 7.4-10.4 102 Mononuclear % 7.2 % 1-9 102 Platelet Count 268 CUMM 150-450 102 Red Cell Count 4.67 CUMM 4.2-5.4 102 Redcell Distribution WDTH 13 % 10.5-15 102 Laboratory test finding 04/19/2007 Anti Dna (Double Stranded NEGATIVE Negative 102 Dna) C Reactive Protein < 0.5 mg/dL Less Than 0.5 102 Rheumatoid Factor < 20.0 IU/mL Less Than 20 102 Erythrocyte Sed Rate 7 MM/HR 0-40 102 Surgical Pathology 09/28/2006 Surgical Pathology <SEE 106 NOTE> Laboratory test 09/04/2005 TSH (Thyroid 1.91 finding Stimulating Horm) Lipid Panel 09/04/2005 Cholesterol, Total 211 High Cholesterol/HDL Ratio 3.46 HDL 61 High Low Density Lipoprotein 139 High Triglycerides 54 Statin 09/04/2005 Sgot (Ast) 38 SGPT (Alt) 35 Urine DIP 09/03/2005 Leukocytes NEG Neg Urine Nitrites NEG Neg Urine pH 5 5-6 Total Protein, Urine NL Neg Urine Glucose NL Norm Urine Ketones NL Neg Urobolinogen NL Norm Urine Bilirubin NL Neg Urine Blood NL Neg Specific Evangeline N/A Low 1.01-1.02 Laboratory test finding 09/03/2005 Thin Layer Pap W/Reflex REC'D-SEE IMAGE To HPV For ASCUS Urine DIP 10/10/2004 Leukocytes NEG Neg Urine Nitrites NEG Neg Urine pH 6 5-6 Total Protein, Urine NEG Neg Urine Glucose NORM Norm Urine Ketones NEG Neg Urobolinogen NORM Norm Urine Bilirubin NEG Neg Urine Blood NEG Neg 1 SEE RESULT BELOW Name: ANGELLA SALCIDO : [address]: Leticia Bartholomew MD Acct: [id number] Unit: [id number] AGE: 78 Location: [facility] Re05/13/18 SEX: F Status: REG REF SPEC: [id number] PA: 05/13/18-[address] [facility] [address]: Leticia Batrholomew MD REQ: [id number] RECD: 05/13/18 STATUS: COMP _ SOURCE: URINE [facility]: ORDERED: Urine Culture COMMENTS: [id number] Urine Source: Random Procedure Result Reported Site Urine Culture Final 05/15/18- 0841 ML Organism 1 ESCHERICHIA COLI [place] Count >100,000 (Many) CFU/ML 1. ESCHERICHIA COLI [facility] RX --------- ------ Ampicillin >=32 R Cefazolin <=4 S Cefepime <=1 S Ceftriaxone <=1 S Ciprofloxacin <=0.25 S Gentamicin <=1 S Levofloxacin 0.25 S Meropenem <=0.25 S Nitrofurantoin <=16 S Tetracycline <=1 S Pipercillin/Tazobactam <=4 S Trimethoprim/Sulfamethoxazole >=320 R Amoxicillin/Clavulanic Acid 4 S Aztreonam <=1 S Contact the Microbiology Department for any additional antibiotic reporting. * [facility] - Main Lab . END OF REPORT DEPARTMENT OF PATHOLOGY, [address] [place] [address] Jesus Wilks M.D. Director [facility] # [id number] 2 Because ethnic data is not always readily available, this report includes an eGFR for both -Americans and non- Americans. The National Kidney Disease Education Program (NKDEP) does not endorse the use of the MDRD equation for patients that are not between the ages of 18 and 70, are , have extremes of body size, muscle mass, or nutritional status, or are non- or non-. According to the National Kidney Foundation, irrespective of diagnosis, the stage of the disease is based on the level of kidney function: Stage Description GFR(mL/min/1.73 m(2)) 1 Kidney damage with normal or decreased GFR 90 2 Kidney damage with mild decrease in GFR 60-89 3 Moderate decrease in GFR 30-59 4 Severe decrease in GFR 15-29 5 Kidney failure <15 (or dialysis) 3 Desirable: <150 Borderline High: 150-199 High: 200-499 Very High: >500 4 Desirable: <200 Borderline High: 200-239 High: >239 5 Low: <40 Desirable: 40-60 High: >60 6 Desirable: <100 Near Optimal: 100-129 Borderline High: 130-159 High: 160-189 Very High: >189 7 [id number] Therapeutic target for the treatment of diabetes mellitus patients is <7% HBA1C, and in selective patients <6.0%. Please refer to [place] [employer] diabetic care guidelines for further information. 9 [id number] SEE RESULT BELOW Name: ANGELLA SALCIDO : [address]: Delvis Plascencia MD Acct: [id number] Unit: [id number] AGE: 76 Location: [facility] Re02/25/17 SEX: F Status: REG REF SPEC: [id number] PA: 02/25/17-[address]: Delvis Plascencia MD REQ: [id number] RECD: 02/25/17 STATUS: COMP _ SOURCE: URINE SPDESC: ORDERED: Urine Culture COMMENTS: [id number] Urine Source: Random Procedure Result Reported Site Urine Culture Final 02/27/17- 721 ML Organism 1 ESCHERICHIA COLI [place] Count 75-100,000 (Many) CFU/ML 1. ESCHERICHIA COLI [facility].I[facility]. RX --------- ------ Ampicillin >=32 R Cefazolin <=4 S Cefepime <=1 S Ceftriaxone <=1 S Ciprofloxacin 2 I Gentamicin 2 S Levofloxacin 4 I Meropenem <=0.25 S Nitrofurantoin <=16 S Tetracycline 2 S Pipercillin/Tazobactam <=4 S Trimethoprim/Sulfamethoxazole >=320 R Amoxicillin/Clavulanic Acid 4 S Aztreonam <=1 S Contact the Microbiology Department for any additional antibiotic reporting. * ML - MAIN LAB ([facility]) . END OF REPORT * ML=Testing performed at Main Lab DEPARTMENT OF PATHOLOGY, [address] [place] [address] Jesus Wilks M.D. Director [facility] # [id number] 11 Because ethnic data is not always readily available, this report includes an eGFR for both -Americans and non- Americans. The National Kidney Disease Education Program (NKDEP) does not endorse the use of the MDRD equation for patients that are not between the ages of 18 and 70, are , have extremes of body size, muscle mass, or nutritional status, or are non- or non-. According to the National Kidney Foundation, irrespective of diagnosis, the stage of the disease is based on the level of kidney function: Stage Description GFR(mL/min/1.73 m(2)) 1 Kidney damage with normal or decreased GFR 90 2 Kidney damage with mild decrease in GFR 60-89 3 Moderate decrease in GFR 30-59 4 Severe decrease in GFR 15-29 5 Kidney failure <15 (or dialysis) 12 Desirable <150 Borderline high 150-199 High 200-499 Very High >500 13 Desirable <200 Borderline high 200-239 High >239 14 Low <40 Desirable: 40-60 High: >60 15 Desirable: <100 mg/dL Near Optimal: 100-129 mg/dL Borderline High: 130-159 mg/dL High: 160-189 mg/dL Very High: >189 mg/dL 16 [id number] SEE RESULT BELOW Name: ANGELLA SALCIDO : [address]: Jeniffer Johnston NP Acct: [id number] Unit: [id number] AGE: 76 Location: [facility] Re08/03/16 SEX: F Status: REG REF SPEC: [id number] PA: 08/03/[address]: Jeniffer Johnston NP REQ: [id number] RECD: 08/03/16 STATUS: COMP _ SOURCE: URINE SPDESC: ORDERED: Urine Culture Procedure Result Reported Site Urine Culture Final 08/05/16- 0807 ML Organism 1 ESCHERICHIA COLI [place] Count >100,000 (Many) CFU/ML 1. ESCHERICHIA COLI M.I.C. RX --------- ------ Ampicillin >=32 R Cefazolin <=4 S Cefepime <=1 S Ceftriaxone <=1 S Ciprofloxacin <=0.25 S Gentamicin <=1 S Levofloxacin 0.5 S Meropenem <=0.25 S Nitrofurantoin <=16 S Tetracycline <=1 S Pipercillin/Tazobactam <=4 S Trimethoprim/Sulfamethoxazole >=320 R Amoxicillin/Clavulanic Acid 4 S Aztreonam <=1 S Contact the Microbiology Department for any additional antibiotic reporting. * ML - MAIN LAB ([facility]) . END OF REPORT * ML=Testing performed at Main Lab DEPARTMENT OF PATHOLOGY, [address] [place] [address] Jesus Wilks M.D. Director [facility] # [id number] 18 [facility] Severe Sepsis and Septic Shock Management Bundle Measure requires all lactic acids initially measuring >2.0 mmol/L be repeated. 19 Because ethnic data is not always readily available, this report includes an eGFR for both -Americans and non- Americans. The National Kidney Disease Education Program (NKDEP) does not endorse the use of the MDRD equation for patients that are not between the ages of 18 and 70, are , have extremes of body size, muscle mass, or nutritional status, or are non- or non-. According to the National Kidney Foundation, irrespective of diagnosis, the stage of the disease is based on the level of kidney function: Stage Description GFR(mL/min/1.73 m(2)) 1 Kidney damage with normal or decreased GFR 90 2 Kidney damage with mild decrease in GFR 60-89 3 Moderate decrease in GFR 30-59 4 Severe decrease in GFR 15-29 5 Kidney failure <15 (or dialysis) 20 Acute inflammation: >10.00 21 Because ethnic data is not always readily available, this report includes an eGFR for both -Americans and non- Americans. The National Kidney Disease Education Program (NKDEP) does not endorse the use of the MDRD equation for patients that are not between the ages of 18 and 70, are , have extremes of body size, muscle mass, or nutritional status, or are non- or non-. According to the National Kidney Foundation, irrespective of diagnosis, the stage of the disease is based on the level of kidney function: Stage Description GFR(mL/min/1.73 m(2)) 1 Kidney damage with normal or decreased GFR 90 2 Kidney damage with mild decrease in GFR 60-89 3 Moderate decrease in GFR 30-59 4 Severe decrease in GFR 15-29 5 Kidney failure <15 (or dialysis) 22 Desirable <150 Borderline high 150-199 High 200-499 Very High >500 23 Desirable <200 Borderline high 200-239 High >239 24 Low <40 Desirable: 40-60 High: >60 25 Desirable: <100 mg/dL Near Optimal: 100-129 mg/dL Borderline High: 130-159 mg/dL High: 160-189 mg/dL Very High: >189 mg/dL 26 Because ethnic data is not always readily available, this report includes an eGFR for both -Americans and non- Americans. The National Kidney Disease Education Program (NKDEP) does not endorse the use of the MDRD equation for patients that are not between the ages of 18 and 70, are , have extremes of body size, muscle mass, or nutritional status, or are non- or non-. According to the National Kidney Foundation, irrespective of diagnosis, the stage of the disease is based on the level of kidney function: Stage Description GFR(mL/min/1.73 m(2)) 1 Kidney damage with normal or decreased GFR 90 2 Kidney damage with mild decrease in GFR 60-89 3 Moderate decrease in GFR 30-59 4 Severe decrease in GFR 15-29 5 Kidney failure <15 (or dialysis) 27 Desirable <150 Borderline high 150-199 High 200-499 Very High >500 28 Desirable <200 Borderline high 200-239 High >239 29 Low <40 Desirable: 40-60 High: >60 30 Desirable <100 Near Optimal 100-129 Borderline high 130-159 High 160-189 Very High >189 31 The thyroglobulin testing method is an immunoenzymatic assay manufactured by [employer] and performed on the SocialMedia305 DXI 800. The thyroglobulin antibody testing method is an electrochemiluminescence assay manufactured by [employer] and performed on the Modular or Shannan System. Values obtained from different assay methods or kits may be different and cannot be used interchangeably. The results cannot be interpreted as absolute evidence for the presence or absence of malignant disease. Specimens with thyroglobulin concentrations greater than 250,000 ng/mL may give falsely lower results. Test Performed by: [place] [address] Animal Handler: Chase Franklin III, M.D. 32 -- REFERENCE VALUE -- <=33 Athyrotic individuals normally have hTg values <=2. 33 HDL Interpretation: Undesirable: High Risk: Less than 40 mg/dL Desirable: Low Risk: Greater than 60 mg/dL 34 LDL Interpretation: Low Risk Optimal Level: LDL Less than 100 mg/dL Near or Above Optimal: LDL 100-129 mg/dL Borderline High Risk: LDL 130-159 mg/dL High Risk: LDL 160-189 mg/dL Very High Risk: LDL Greater than 189 mg/dL 35 Because ethnic data is not always readily available, this report includes an eGFR for both -Americans and non- Americans. The National Kidney Disease Education Program (NKDEP) does not endorse the use of the MDRD equation for patients that are not between the ages of 18 and 70, are , have extremes of body size, muscle mass, or nutritional status, or are non- or non-. According to the National Kidney Foundation, irrespective of diagnosis, the stage of the disease is based on the level of kidney function: Stage Description GFR(mL/min/1.73 m(2)) 1 Kidney damage with normal or decreased GFR 90 2 Kidney damage with mild decrease in GFR 60-89 3 Moderate decrease in GFR 30-59 4 Severe decrease in GFR 15-29 5 Kidney failure <15 (or dialysis) 36 Because ethnic data is not always readily available, this report includes an eGFR for both -Americans and non- Americans. The National Kidney Disease Education Program (NKDEP) does not endorse the use of the MDRD equation for patients that are not between the ages of 18 and 70, are , have extremes of body size, muscle mass, or nutritional status, or are non- or non-. According to the National Kidney Foundation, irrespective of diagnosis, the stage of the disease is based on the level of kidney function: Stage Description GFR(mL/min/1.73 m(2)) 1 Kidney damage with normal or decreased GFR 90 2 Kidney damage with mild decrease in GFR 60-89 3 Moderate decrease in GFR 30-59 4 Severe decrease in GFR 15-29 5 Kidney failure <15 (or dialysis) 37 HDL Interpretation: Undesirable: High Risk: Less than 40 MG/DL Desirable: Low Risk: Greater than 60 MG/DL 38 LDL Interpretation: Low Risk Optimal Level: LDL Less than 100 MG/DL Near or Above Optimal: LDL 100-129 MG/DL Borderline High Risk: LDL 130-159 MG/DL High Risk: LDL 160-189 MG/DL Very High Risk: LDL Greater than 189 MG/DL 39 Thyroglobulin Antibody, S was cancelled on 05/07/2012 at 11:42; Test cancelled by RBS rule <TGAB4> Reason: Test TGAB is cancelled due to being ordered with Test HTG1 If thyroglobulin antibody measurement is performed to assess the reliability of the thyroglobulin assay for thyroid cancer patient follow-up, a thyroglobulin antibody result=/>22 IU/mL may result in falsely decreased thyroglobulin values. The thyroglobulin antibody testing method is an electrochemiluminescence assay manufactured by [employer] and performed on the Modular or Shannan system. Values obtained from different assay methods or kits may be different and cannot be used interchangeably. Test Performed by: [address] [address] Animal Handler: Chase Franklin III, M.D. 40 The thyroglobulin testing method is an immunoenzymatic assay manufactured by [employer] and performed on the SocialMedia305 DXI 800. The thyroglobulin antibody testing method is an electrochemiluminescence assay manufactured by [employer] and performed on the Modular or Shannan System. Values obtained from different assay methods or kits may be different and cannot be used interchangeably. The results cannot be interpreted as absolute evidence for the presence or absence of malignant disease. Specimens with thyroglobulin concentrations greater than 250,000 ng/mL may give falsely lower results. 41 -- REFERENCE VALUE -- <=33 Athyrotic individuals normally have hTg values <=2. Test Performed by: [place] [address] Animal Handler: Chase Franklin III, M.D. 42 ---- RUN DATE: 04/06/12 [facility] NMI LIVE PAGE 1 RUN TIME: 1450 Specimen Inquiry RUN USER: INTERFACE -- Name: ANGELLA SALCIDO#: [id number] Status: REG REF Re04/05/12 Age/Sex: 72/F Unit#: [id number] Location: END : 42 -- Specimen: [id number] CORINE Spec Date:04/05/12- Dr: Anthony Mckenzie MD Spec Type: SURGICAL P Received:04/05/12-1340 Copies to: Luli Cooper And megan Akhtar MD SPECIMEN ASCENDING COLON POLYPS HOT SNARE HISTORY POST-OP DIAGNOSIS: Colonoscopy to cecum. Colon polypectomies. Mild left c olon diverticulosis. CLINICAL INFORMATION: Personal history of polyps, 2005. GROSS DESCRIPTION The specimen is received in formalin labelled Angella Salcido, Ascending Colon Polyps, and consists of multiple fragments of yellow tissue measuring in aggregate 1.2 x 1.2 x 0.3 cm. Submitted entirely, one cassette. DIAGNOSIS Ascending colon, biopsy: A. Tubulovillous adenoma. B. No high grade dysplasia or malignancy. Signed Electronically by: RACHEL MUELLER 04/06/12 1450 -- -- DEPARTMENT OF PATHOLOGY, [address] [place] [address] [facility] Permit #[id number] Jesus Wilks M.D. Director Rachel Mueller M.D. Glue Spreading Machine Operator Dir anne -- 43 CHOLESTEROL INTERPRETATION: Desirable: Less than 200 MG/DL Borderline-High Risk: 200-239 MG/DL High-Risk: 240 MG/DL and over 44 HDL INTERPRETATION: Undesirable: High Risk: Less than 40 MG/DL Desirable: Low Risk: Greater than 60 MG/DL 45 LDL INTERPRETATION: Low Risk Optimal Level: LDL Less than 100 MG/DL Near or Above Optimal: LDL 100-129 MG/DL Borderline High Risk: LDL 130-159 MG/DL High Risk: LDL 160-189 MG/DL Very High Risk: LDL Greater than 189 MG/DL 46 Anion gap measurement may be of limited value in the presence of any alkalosis, especially in a combined acid base disorder. . 47 A metabolite of Naproxen, O-desmethylnaproxen, has been shown to interfere with the Jendrassik-Elsy method for measuring total bilirubin. Samples from patients who have taken Naproxen have shown spurious elevation in total bilirubin levels. 48 Because ethnic data is not always readily available, this report includes an eGFR for both -Americans and non- Americans. The National Kidney Disease Education Program (NKDEP) does not endorse the use of the MDRD equation for patients that are not between the ages of 18 and 70, are , have extremes of body size, muscle mass, or nutritional status, or are non- or non-. According to the National Kidney Foundation, irrespective of diagnosis, the stage of the disease is based on the level of kidney function: Stage Description GFR(mL/min/1.73 m(2)) 1 Kidney damage with normal or decreased GFR 90 2 Kidney damage with mild decrease in GFR 60-89 3 Moderate decrease in GFR 30-59 4 Severe decrease in GFR 15-29 5 Kidney failure <15 (or dialysis) 49 Lymphopenia % 50 -- REFERENCE VALUE -- <=33 Athyrotic individuals normally have hTg values <=2. The thyroglobulin testing method is an immunoenzymatic assay manufactured by [employer] and performed on the SocialMedia305 DXI 800. The thyroglobulin antibody testing method is an electrochemiluminescence assay manufactured by [employer] and performed on the Modular or Shannan System. Values obtained from different assay methods or kits may be different and cannot be used interchangeably. The results cannot be interpreted as absolute evidence for the presence or absence of malignant disease. Specimens with thyroglobulin concentrations greater than 250,000 ng/mL may give falsely lower results. Test Performed by: [facility] Dpt of Lab Med and Pathology [address] [place] [address] Animal Handler: Chase Franklin III, M.D. 51 Anion gap measurement may be of limited value in the presence of any alkalosis, especially in a combined acid base disorder. . 52 Note change in reference range as of 06/14/08. The change was based on recommendations from the [place] [employer]. 53 A metabolite of Naproxen, O-desmethylnaproxen, has been shown to interfere with the Jendrassik-Elsy method for measuring total bilirubin. Samples from patients who have taken Naproxen have shown spurious elevation in total bilirubin levels. 54 Because ethnic data is not always readily available, this report includes an eGFR for both -Americans and non- Americans. The National Kidney Disease Education Program (NKDEP) does not endorse the use of the MDRD equation for patients that are not between the ages of 18 and 70, are , have extremes of body size, muscle mass, or nutritional status, or are non- or non-. According to the National Kidney Foundation, irrespective of diagnosis, the stage of the disease is based on the level of kidney function: Stage Description GFR(mL/min/1.73 m(2)) 1 Kidney damage with normal or decreased GFR 90 2 Kidney damage with mild decrease in GFR 60-89 3 Moderate decrease in GFR 30-59 4 Severe decrease in GFR 15-29 5 Kidney failure <15 (or dialysis) 55 ---- RUN DATE: 10/07/10 [facility] NMI LIVE PAGE 1 RUN TIME: 1224 Specimen Inquiry RUN USER: INTERFACE -- Name: ANGELLA SALCIDO Status: REG REF Re10/06/10 Age/Sex: 70/F Unit#: [id number] Location: [facility] : 42 -- Specimen: [id number] SOUT Spec Date: 10/06/[address]: Jeniffer cruz NP Spec Type: CYTOLOGY Received: 10/07/10-900 Copies to: SOURCE VAGINAL Thin Prep with Reflex HPV Test PATIENT INFORMATION ACTUAL COLLECTION DATE: 10/06/10 DATE OF PRIOR SPECIMEN: 10/03/09 ADEQUACY OF SPECIMEN Satisfactory for evaluation * DIAGNOSIS NEGATIVE FOR INTRAEPITHELIAL LESION OR MALIGNANCY * This Pap test was evaluated with the assistance of the [employer]ORY[employer] Pap Test Imaging System. The Pap Smear is a screening test designed to aid in the detection of premalign ant and malignant conditions of the uterine cervix. It is not a diagnostic procedure a nd should not be used as the sole means of detecting cervical cancer. Both false- positiv e and false-negative reports do occur. Depending on your risk status, a Pap smear callie uld be obtained and evaluated every one to three years. Final Interpretation electronically signed by: Guillermo VIGIL([facility]) 10/07/10 122 3 -- -- DEPARTMENT OF PATHOLOGY, [address] [place] [address] [facility] Permit #[id number] Ramona Baron M.D. Assistant Dir ector -- 56 CHOLESTEROL INTERPRETATION: Desirable: Less than 200 MG/DL Borderline-High Risk: 200-239 MG/DL High-Risk: 240 MG/DL and over 57 HDL INTERPRETATION: Undesirable: High Risk: Less than 40 MG/DL Desirable: Low Risk: Greater than 60 MG/DL 58 LDL INTERPRETATION: Low Risk Optimal Level: LDL Less than 100 MG/DL Near or Above Optimal: LDL 100-129 MG/DL Borderline High Risk: LDL 130-159 MG/DL High Risk: LDL 160-189 MG/DL Very High Risk: LDL Greater than 189 MG/DL 59 PLEASE NOTE NEW REFERENCE RANGES. 60 Anion gap measurement may be of limited value in the presence of any alkalosis, especially in a combined acid base disorder. . 61 Note change in reference range as of 06/14/08. The change was based on recommendations from the [place] [employer]. 62 Please note change in reference range effective 08 . 63 A metabolite of Naproxen, O-desmethylnaproxen, has been shown to interfere with the Jendrassik-Elsy method for measuring total bilirubin. Samples from patients who have taken Naproxen have shown spurious elevation in total bilirubin levels. 64 Because ethnic data is not always readily available, this report includes an eGFR for both -Americans and non- Americans. The National Kidney Disease Education Program (NKDEP) does not endorse the use of the MDRD equation for patients that are not between the ages of 18 and 70, are , have extremes of body size, muscle mass, or nutritional status, or are non- or non-. According to the National Kidney Foundation, irrespective of diagnosis, the stage of the disease is based on the level of kidney function: Stage Description GFR(mL/min/1.73 m(2)) 1 Kidney damage with normal or decreased GFR 90 2 Kidney damage with mild decrease in GFR 60-89 3 Moderate decrease in GFR 30-59 4 Severe decrease in GFR 15-29 5 Kidney failure <15 (or dialysis) 65 CHOLESTEROL INTERPRETATION: Desirable: Less than 200 MG/DL Borderline-High Risk: 200-239 MG/DL High-Risk: 240 MG/DL and over 66 HDL INTERPRETATION: Undesirable: High Risk: Less than 40 MG/DL Desirable: Low Risk: Greater than 60 MG/DL 67 LDL INTERPRETATION: Low Risk Optimal Level: LDL Less than 100 MG/DL Near or Above Optimal: LDL 100-129 MG/DL Borderline High Risk: LDL 130-159 MG/DL High Risk: LDL 160-189 MG/DL Very High Risk: LDL Greater than 189 MG/DL 68 ---- RUN DATE: 10/07/09 [facility] NMI LIVE PAGE 1 RUN TIME: 1059 Specimen Inquiry RUN USER: INTERFACE -- Name: ANGELLA SALCIDO Ronnie Accluis#: [id number] Status: REG REF Re10/03/09 Age/Sex: 69/F Unit#: [id number] Location: [facility]. : 42 -- Specimen: [id number] SOUT Spec Date: 10/03/[address]: Huma ruiz CNP Spec Type: CYTOLOGY Received: 10/04/09-1031 Copies to: SOURCE ECTOCERVICAL/ENDOCERVICAL Thin Prep with Reflex HPV Test PATIENT INFORMATION ACTUAL COLLECTION DATE: 10/03/09 POST MENOPAUSAL? Yes PATIENT HISTORY: Specimen was received in lab with the plastic safety seal s till intact Spoke to April @ clinicians- sample was never obtained. DIAGNOSIS Vial received with packaging intact. Clinician verified that sample not taken. Final Interpretation electronically signed by: Guillermo VIGIL([facility]) 10/07/09 105 9 -- -- DEPARTMENT OF PATHOLOGY, [address] [place] [address] [facility] Permit #[id number] Jesus Wilks M.D. Director Rachel Mueller M.D. Glue Spreading Machine Operator Dir anne -- 69 SCANT NORMAL URETHRAL OR PERINEAL BRINDA 70 ENTEROBACTERIACEAE 71 PLEASE NOTE NEW REFERENCE RANGES. 72 Anion gap measurement may be of limited value in the presence of any alkalosis, especially in a combined acid base disorder. . 73 Note change in reference range as of 06/14/08. The change was based on recommendations from the [place] [employer]. 74 Please note change in reference range effective 08 . 75 Anion gap measurement may be of limited value in the presence of any alkalosis, especially in a combined acid base disorder. . 76 Note change in reference range as of 06/14/08. The change was based on recommendations from the [place] [employer]. 77 Please note change in reference range effective 08 . 78 PLEASE NOTE NEW REFERENCE RANGES. 79 New Reference Range and Interpretation effective 07/28/02 TnI (ng/ml) INTERPRETATION <0.06 ng/ml NOT SUPPORTIVE OF DIAGNOSIS OF NM 0.06 - 0.50 ng/ml INDETERMINATE: SUGGEST SERIAL STUDIES IF CLINICALLY INDICATED. > 0.5 ng/ml CONSISTENT WITH DIAGNOSIS OF NM . 80 Anion gap measurement may be of limited value in the presence of any alkalosis, especially in a combined acid base disorder. . 81 Note change in reference range as of 06/14/08. The change was based on recommendations from the [place] [employer]. 82 Please note change in reference range effective 08 . 83 PLEASE NOTE NEW REFERENCE RANGE EFFECTIVE 08. 84 ANAMIKA VALUE=2.01 ( OF 09/30/07 Recommended INR for Patients on Oral Anticoagulants Prophylaxis 2.0 - 3.0 Treatment of thrombosis 2.0 - 3.0 Prevention of embolism 2.0 - 3.0 Prevention of embolism from prosthetic heart valves 2.5 - 3.5 85 Please note change in reference range effective 08 . 86 Please note change in reference range effective 08 . 87 Please note change in reference range effective 08 . 88 Please note change in reference range effective 08 . 89 SDS 10--08 90 Lymphopenia % 91 Anion gap measurement may be of limited value in the presence of any alkalosis, especially in a combined acid base disorder. . 92 Note change in reference range as of 06/14/08. The change was based on recommendations from the [place] [employer]. 93 Please note change in reference range effective 08 . 94 ---- RUN DATE: 07/05/08 [facility] NMI LIVE PAGE 1 RUN TIME: 1504 Specimen Inquiry RUN USER: INTERFACE -- Name: ANGELLA SALCIDO [facility]ly [facility]#: [id number] Status: REG REF Re06/29/08 Age/Sex: 68/F Unit#: [id number] Location: [facility]. : 42 -- Specimen: [id number] [facility] Spec Date: 06/29/[address]: Huma ruiz CNP Spec Type: CYTOLOGY Received: 06/29/08-1220 Copies to: SOURCE FINE NEEDLE ASPIRATION Right thyroid by palpation. PATIENT INFORMATION ACTUAL COLLECTION DATE: 06/29/08 GROSS DESCRIPTION 3 Alcohol fixed slides, 2 air dried slides with moderate material. 3 slides were scraped and processed as Cellient cell block. IMMEDIATE INTERPRETATION Thyroid, right, FNA by palpation: Adequate specimen. 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 The differential diagnosis of Follicular Neoplasm includes Follicular Adenoma, Well Differentiated Follicular Carcinoma, cellular nodule in hyperplasia and Follicular Variant Papillary Carcinoma. A cell block was prepared in the evaluation of this specimen. The following immunohistochemical stains were performed at [facility] ([place], [place]) with appropriate controls and interpreted by [facility]: Calcitonin: Negative. Calcitonin stain was performed to rule out the possibility of a medullary carcinoma. The procedure was explained and understood by the patient. Fine needle aspiration was performed by palpation of a palpable 1.6 cm. right thyroid nodule with a 25 gauge needle. Fine needle aspiration biopsy was performed times one. The procedure was tolerated well by the patient without complications. -- DEPARTMENT OF PATHOLOGY, [address] [place] [address] [facility] Permit #[id number] Jesus Wilks M.D. Director of [employer] -- -- RUN DATE: 07/05/08 [facility] NMI LIVE PAGE 2 RUN TIME: 1504 Specimen Inquiry RUN USER: INTERFACE -- Name: ANGELLA SALCIDO#: [id number] Status: REG REF Re06/29/08 Age/Sex: 68/F Unit#: [id number] Location: [facility] : 42 -- -- CONTINUED -- COMMENT (Continued) Immediate stain evaluation was performed for adequacy. ADDENDUM Addendum #1 Entered: 07/05/087022 A congo red stain for amyloid was performed in the evaluation of this specimen. Addendum Review (signature on file) JESUS WILKS MD 07/05/08 -- Initial evaluation performed by Sabrina GALAVIZ([facility]) 06/29/08 Final Interpretation electronically signed by: JESUS WILKS MD 07/04/08 16 46 -- -- DEPARTMENT OF PATHOLOGY, [address] [place] [address] [place] [facility] Permit #[id number] Jesus Wilks M.D. Director of Laboratories -- 95 PLEASE NOTE NEW REFERENCE RANGES. 96 Anion gap measurement may be of limited value in the presence of any alkalosis, especially in a combined acid base disorder. . 97 Please note change in reference range effective 08 . 98 CHOLESTEROL INTERPRETATION: Desirable: Less than 200 MG/DL Borderline-High Risk: 200-239 MG/DL High-Risk: 240 MG/DL and over 99 HDL INTERPRETATION: Undesirable: High Risk: Less than 40 MG/DL Desirable: Low Risk: Greater than 60 MG/DL 10 LDL INTERPRETATION: 0 Low Risk Optimal Level: LDL Less than 100 MG/DL Near or Above Optimal: LDL 100-129 MG/DL Borderline High Risk: LDL 130-159 MG/DL High Risk: LDL 160-189 MG/DL Very High Risk: LDL Greater than 189 MG/DL 10 Anion gap measurement may be of limited value in the 1 presence of any alkalosis, especially in a combined acid base disorder. . 10 NON-FASTING 2 10 Classification: Borderline High 3 . 10 4 CALCULATED LDL APPROXIMATES THE VALUE OF A DIRECT LDL MEASUREMENT. Classification: Borderline High . 10 Anion gap measurement may be of limited value in the 5 presence of any alkalosis, especially in a combined acid base disorder. . 10 ---- 6 RUN DATE: 09/29/06 [facility] NMI LIVE PAGE 1 RUN TIME: 1239 Specimen Inquiry RUN USER: INTERFACE [id number] ANGELLA SALCIDO 66/F <REG REF 09/28> ([id number]) EFREN Mckenzie MD.Anthony -- Specimen: [id number] SOUT Spec Date: 09/28/[address]: Anthony Mckenzie MD. Spec Type: SURGICAL P Received: 09/28/06-1252 Copies to: Luli Cooper And megan DAN SPECIMEN BIOPSY RECTAL POLYP HISTORY CLINICAL INFORMATION: Screening colonoscopy. Positive family history of colon carcinoma. GROSS DESCRIPTION The specimen is received in formalin labelled "Angella Salcido, Biopsy Rectal Polyp" and consists of a single tripp soft tissue fragment measuring 0.3 x 0.3 x 0.3 cm. Submitted entirely in one cassette. DIAGNOSIS Colon, rectum, biopsy - Hyperplastic polyp. Signed Electronically signed JESUS WILKS MD 09/29/06 -- -- DEPARTMENT OF PATHOLOGY, [address] [place] [id number] [facility] Permit #[id number] Robson Mckinnon II, M.D. Director Jesus Wilks M.D. Glue Spreading Machine Operator Guillermo irector -- Procedures Date CPT Code Description Status Comment 10/15/2014 27833 Nebulizer Treatment Completed 10/10/2013 36814 EKG, at Least 12 Leads w/Interpretation and Completed Report 05/25/2011 Mammogram Completed normal 04/24/2007 Bone Mineral Density Test Completed Normal 09/05/2004 66599 EKG, at Least 12 Leads w/Interpretation and Completed Report Encounters Type Date Location Provider CPT E/M Dx Office Visit 05/13/2018 12:00p [facility] Leticia Bartholomew M.D., 25350 N39.0 R.D. Office Visit 05/03/2018 11:00a [facility] EUGENIO Garcia 09014 I10 R60.9 Office Visit 04/04/2018 1:30p Main Office EUGENIO Garcia G0439 Z00.01 I10 R23.8 R60.9 Z12.31 Office Visit 03/03/2018 10:15a [facility] [place] [address] R60.9 Office Visit 02/25/2017 5:00p [place] [address] R31.9 Office Visit 10/12/2016 8:45a Main Office EUGENIO Garcia G0439 Z00.01 I10 Office Visit 08/03/2016 2:15p Main Office EUGENIO Garcia 63637 N39.0 Office Visit 04/28/2016 4:30p Main Office Jeniffer Johnston [facility] 60642 S39.012A Office Visit 10/15/2015 1:30p Main Office Jeniffer Johnston [facility]- G0439 Z00.01 F41.9 I10 Z12.31 Office Visit 04/29/2015 4:45p Main Office Jeniffer Johnston [facility] 73099 720.2 V03.82 Office Visit 10/23/2014 9:30a Main Office Jeniffer Johnston [facility]- G0439 V70.0 V76.10 V72.62 272.4 244.9 401.9 Office Visit 10/15/2014 4:15p Main Office Jeniffer Johnston [facility] [address]14 486 466.0 Office Visit 10/10/2013 9:00a Main Office Jeniffer Johnston [facility] G0439 V70.0 719.46 V72.62 401.9 Office Visit 10/10/2012 9:00a Main Office Jeniffer Johnston [facility]- G0439 V70.0 244.9 300.00 401.9 V72.62 Office Visit 10/08/2011 9:00a Main Office Jeniffer Johnston [facility]- G0438 V70.0 244.9 300.00 401.9 V04.81 V06.1 Office Visit 10/06/2010 8:00a Main Office Jeniffer Johnston [facility] 68942 V70.0 V72.31 244.9 401.9 272.4 788.30 300.00 Office Visit 09/15/2010 11:30a Main Office Maya Shaheen, SASHA 74922 782.1 Office Visit 10/03/2009 9:00a Main Office Huma Woo, F.N.P.C. 68220 V70.0 244.9 401.9 599.70 723.1 272.4 627.9 V05.8 Office Visit 04/08/2009 10:00a Main Office Huma Woo, F.N.P.C. 76810 723.1 401.9 199.1 244.9 564.01 Office Visit 02/25/2009 11:00a Main Office Humabj Woo F.N.P.C. 59122 401.9 564.01 244.9 272.0 Office Visit 09/11/2008 11:15a Main Office Luli Hamm M.D. 77946 401.9 564.01 244.9 199.1 Office Visit 06/07/2008 12:45p Main Office Humabj Woo F.N.P.C. 02417 401.9 272.0 240.9 790.6 Office Visit 04/18/2008 11:30a Main Office Humabj Woo F.N.P.C. 56405 V70.0 401.9 272.0 790.6 780.50 719.69 Office Visit 03/20/2008 10:30a Main Office Luli Hamm M.D. 12842 307.81 Office Visit 09/09/2007 10:30a Main Office Huma Woo F.N.P.C. 93068 272.0 401.9 790.6 780.50 Office Visit 05/16/2007 10:15a Main Office Huma Woo F.N.P.C. 09299 790.6 780.50 719.69 401.9 Office Visit 09/03/2005 9:15a Main Office Luli Hamm M.D. 73552 V72.31 V70.0 401.9 272.0 785.1 Office Visit 10/10/2004 10:30a Main Office Luli Hamm M.D. 50140 401.9 782.3 616.10 272.0 Office Visit 09/05/2004 10:45a Main Office Luli Hamm M.D. 00644 V70.0 785.1 272.0 401.9 Plan of Care Future Appointment(s):05/31/2018 11:30 am - EUGENIO Garcia at [facility]05/13/2018 - Leticia Bartholomew M.D., R.LouisN39.0 Urinary tract infection, site not specifiedNew Medication:Ciprofloxacin HCL 250 mg
[2018-06-10] MEDS ORDERED: Nitroglycerin TAB 0.4 MG* 0.4 MG TAB ONE (18:35)
[2018-06-10] MEDS ORDERED: Nitroglycerin TAB 0.4 MG* 0.4 MG TAB SL ONE ×2 (18:37→18:49)
[2018-06-10] MEDS ORDERED: Aspirin 81 mg CHEW TAB* 81 MG TAB.CHEW PO ONE (19:03)
[2018-06-10] MEDS ORDERED: Acetaminophen TAB* 325 MG PO PRN (19:03)
[2018-06-10] MEDS ORDERED: Ondansetron INJ* 2 MG/ML VIAL IV PRN (19:03)
[2018-06-10] MEDS ORDERED: LORazepam TAB(*) 0.5 MG PO PRN (19:07)
[2018-06-10] MEDS ORDERED: Magnesium Sulfate 2 GM IV* 2 GM/50 ML BAG IVPB ONE (19:17)
--- NOTE | 2018-06-10 19:21 | RAD ---
INDICATION: Chest pain COMPARISON: March 27, 2015 TECHNIQUE: An AP portable view obtained at 1912 hours is submitted. FINDINGS: Bones/Soft Tissues: There are no acute bony findings. Cardiomediastinal: The cardiomediastinal silhouette is normal. Lungs: There are no infiltrates. Pleura: There are no pleural effusions. Other: None IMPRESSION: NO ACTIVE DISEASE
[2018-06-10] MEDS ORDERED: Heparin VIAL(*) 5000 UNITS/ML VIAL (FIVE THOUSAND) IV PRN (20:46)
--- NOTE | 2018-06-10 20:49 | HP ---
CC: Jeniffer Johnston NP; Dr. Johnson; Dr. Jose Cai * HISTORY AND PHYSICAL: DATE OF ADMISSION: 06/10/18 PRIMARY CARE PROVIDER: Jeniffer Johnston NP ATTENDING PHYSICIAN WHILE IN THE HOSPITAL: Dr. Morena Pereira * (report dictated by Riky Aquino NP). CONSULTING CEMENT FINISHER HELPER: Dr. Johnson. CHIEF COMPLAINT: Palpitations, "I feel like I'm going to pass out." HISTORY OF PRESENT ILLNESS: Ms. Ruth is a 78-year-old female patient, who has been following with Dr. Cai in the outpatient setting. She has been having intermittent episodes of palpitations. She is being treated for a skin issue and was noted to have swelling in her lower extremities, was complaining of having intermittent palpitations, underwent cardiology workup through her primary, had a stress test, in addition to this an echo. She was noted that during the stress test, she did have atrial fibrillation, was started on Eliquis and was rate controlled with atenolol. However, over the last 10 days, the patient has had progressive worsening episodes where she was having palpitations, fluttering in the chest. Her daughter, who is a nurse, does note that her heart rate gets up as high as 130s to 140s. The patient feels like at times she is going to pass out. This can happen with exertion or nonexertional. She denies having any chest pressure, but she does admit to having palpitations. When she gets these, she becomes sweaty, she gets nauseated. She denies any shortness of breath. She did admit to having some chest pressure today when I was interviewing her. She says that she has not had any recent fevers or cough. She has been taking her medications as prescribed. She had touched base with her primary physician today and was going to have blood work done, but while going to have blood work, when she was driving, she had an episode where she felt like she was going to faint and pass out. Her daughter happened to see her, came to her aid and said to her mother that she needed to be checked out in the ER, so they came in today. She was evaluated in the ER. Because of these episodes of feeling she was going to faint and passing out, we were asked to evaluate. In interviewing her, she did admit to having chest discomfort and EKG did show T-wave changes, so because of this, the patient will be admitted. PAST MEDICAL HISTORY: Significant for: 1. AFib. 2. Thyroid cancer. 3. Overactive bladder. 4. Anxiety. 5. Hypertension. PAST SURGICAL HISTORY: She has had: 1. Thyroidectomy. 2. Hysterectomy. MEDICATIONS: Home meds according to the list she provided include: 1. MiraLAX 17 g p.o. every other day as needed. 2. Ativan 0.5 mg every 8 hours as needed. 3. Ditropan 5 mg p.o. b.i.d. 4. Synthroid 75 mcg p.o. daily. 5. Align 4 mg p.o. daily. 6. Lisinopril/hydrochlorothiazide 1 tablet daily. 7. Atenolol 25 mg daily. 8. Eliquis 5 mg p.o. b.i.d. ALLERGIES TO MEDICATIONS: Include SULFA DRUGS. FAMILY HISTORY: Mother had a history of lung cancer. Father had a history of colon cancer and CAD. SOCIAL HISTORY: She does not smoke. She occasionally drinks wine. She lives alone with her . Surrogate decision makers are her and her daughter, Deepali. REVIEW OF SYSTEMS: There is no documented fever. She denies having any significant weight change. There is no double vision. She denies having any ear discharge. There was no rhinorrhea, no sore throat, no thyroid enlargement. There was chest pressure per my HPI. She denies orthopnea. She denies dyspnea on exertion. She denies having any abdominal pain. There was associated nausea with this chest discomfort. She denies having any loss of consciousness, although she feels like she is going to faint sometimes. She denies having any seizure activity. Review of 14 systems was completed, all others negative. PHYSICAL EXAMINATION GENERAL: At this time, Ms. Ruth is a 78-year-old female patient. She is sitting in the ED stretcher. She does not appear to be in any acute distress. VITAL SIGNS: Blood pressure 141/81, pulse 69, respirations 20, O2 sat 96%, temperature 97.5. HEENT: Head: Atraumatic and normocephalic. Eyes: EOMs are intact. Sclerae anicteric and not pale. Throat: Oral mucosa appears to be moist. No oropharyngeal erythema. NECK: Supple. LUNGS: Clear to auscultation bilaterally. There were no wheezes, rales, or rhonchi. HEART: Sounds S1, S2. She had a regular rate and rhythm. No murmurs, rubs, or gallops. ABDOMEN: Soft, flat, nontender. Bowel sounds were present. EXTREMITIES: Pulses were 2+ throughout. She has no peripheral edema. She is moving all 4 extremities with 5/5 strength. NEUROLOGICAL: The patient is awake. She is alert. She is oriented x3. Tongue midline. Manufacturing Clerk were equal. No gross focal deficits. SKIN: Grossly intact. DIAGNOSTIC STUDIES/LAB DATA: Labs today are revealing a WBC of 6.6, RBC of 4.66, hemoglobin of 13.7, hematocrit of 42, platelet count of 233. INR was 1.15 , D-dimer less than 200. Sodium 136, potassium of 4.1, chloride of 102, bicarb 27, BUN 27, creatinine of 0.93, glucose 106, lactate 0.7, calcium 9.1, her mag was 1.8. Total bili is 0.4, AST 18, ALT 16,. Troponin 0.01. BNP 175. TSH of 0.17. Albumin of 4.2. She had several EKGs. The initial EKG when she presented at 4:30 showed a normal sinus rhythm. She did have inverted P waves in leads II, III, and aVF, which I do not if this is new or old. She had no T-wave inversions or ST elevations. With chest pain, I repeated the EKG and she had now new T-wave inversions in V4, V5, and V6 along with V3, but no ST elevations. The P waves were still inverted in the same leads. She did have a negative stress test according to old records a month ago, in addition to this, also had an EF of 50% to 55% according to old records as well. Old medical records were reviewed. ASSESSMENT AND PLAN: Ms. Ruth is a 78-year-old female patient coming into the ED today with complaints of palpitations and near syncopal episode. While evaluating her, she did complain of chest pain. She will be admitted under inpatient status for: 1. Chest pain, possible acute coronary syndrome. I am concerned because the EKG did have changes with chest pain. She has received 2 nitro. She says she is no longer having chest discomfort. I did touch base with Dr. Johnson, who will evaluate the patient tomorrow. The plan will be to place her in the ICU, serial troponins. She did respond to sublingual nitro. Should the chest pain come back, I will put her on nitro paste or nitro drip, but she appears to be stable now with sublingual nitro. We will get serial EKGs and an EKG in the morning. We will cycle her troponins. We will place her on a heparin drip. We will also start her on a beta dipesh, check lipid panel, A1c in the morning , and we will continue to follow her closely. 2. Near syncope. Again, I am concerned this could be related to arrhythmia. She just had a recent echo. I will certainly keep her on telemetry for the time being. We may need to consider repeating the echo on Wednesday this week, but first thing is we will need to address the EKG changes in the setting of chest pain. It could be ventricular tachycardia. Again, we are going to keep her on beta blockers, replacing her magnesium. These palpitations could also be related to the hyperthyroid she has, so checking her T3, T4, holding her Synthroid and we will continue to follow her on telemetry. 3. History of thyroid cancer, now hypothyroid. Her TSH was 0.71, so I am holding her Synthroid, checking her T3, T4 levels. We may need to consider reducing that dose. 4. History of overactive bladder. Continue with her Ditropan. 5. History of hypertension. I am putting her on metoprolol. 6. History of anxiety. Go ahead and continue her on her p.r.n. Ativan. 7. DVT prophylaxis. She will be on a heparin drip that will be starting at 2100 tonight. 8. History of atrial fibrillation. This is a new diagnosis for the patient. She is in sinus rhythm currently. We will continue to monitor her for her episodes of rapid atrial fibrillation, but this could certainly be exacerbated by the low TSH and hyperthyroid. So, we are getting the T3, T4 levels and we will monitor her. She will be placed on a heparin drip tonight at 2100 instead of her next Eliquis, so for the time being, she will be on heparin and we will continue with beta dipesh for rate control. DVT prophylaxis with heparin drip. 9. Code status. Full code. 10. Fluids, electrolytes, and nutrition. Clear liquid diet and n.p.o. after midnight for possible cath in the morning depending on what Cardiology says in evaluation. TIME SPENT: On the admission was 60 minutes, greater than half the time was spent [id number] with the patient obtaining my history and physical, other half time was spent going over the plan of care with the patient and implementing the plan of care. I discussed the plan of care with my attending, Dr. Biswas and Dr. Pereira; they are in agreement. RIKY AQUINO, SASHA [id number]/CPS #: [id number] JULIANNE
[2018-06-10 21:24] LABS: Urine Appearance Clear; Urine Blood 2+ (Negative); Urine Color Straw; Urine Ketones Trace (Negative); Urine Protein Negative (Negative); Urine Red Blood Cell 1+(3-5/hpf) (Absent); Urine Specific Gravity 1.013 (1.010-1.030); Urine Urobilinogen Negative (Negative); Urine White Blood Cell Trace(0-5/hpf) (Absent)
[2018-06-10] MEDS: Metoprolol Tartrate TAB* 25 MG PO SCH ×2 (21:45→21:46)
[2018-06-10] MEDS: Oxybutynin TAB* 5 MG PO SCH (21:45)
[2018-06-10] MEDS: Heparin DRIP 25,000 UNITS(*) 25,000 UNITS/500 ML BAG IV SCH (22:09)
[2018-06-10 22:36] LABS: EGFR Non-African American 60.9 (>60)
[2018-06-10] MEDS ORDERED: Nitroglycerin 2% OINT* 1 GM PAK ONE (23:35)
[2018-06-10] MEDS: Nitroglycerin 2% OINT* 1 GM PAK TOPICAL SCH (23:38)
[2018-06-11 04:53] LABS: ABS Basophils 0 10^3/ul (0-0.2); ABS Eosinophils 0.1 10^3/ul (0-0.6); ABS Monocytes 0.4 10^3/ul (0-0.8); ABS Neutrophils 5.3 10^3/ul (1.5-7.7); ABS Nucleated RBC 0 10^3/ul; Eosinophil % 1.3 % (0-6); Hematocrit 38 % (35-47); Hemoglobin 12.7 g/dl (12.0-16.0); Lymphocyte % 25.2 % (25-47); Mean Corpuscular HGB Conc 34 g/dl (31-36); Mean Corpuscular Hemoglobin 30 pg (27-31); Mean Corpuscular Volume 88 fL (80-97); Mean Platelet Volume 7.1 um3 (7.4-10.4); Nucleated Red Blood Cells % 0; Platelet Count 205 10^3/ul (150-450); Red Blood Count 4.26 10^6/ul (4.00-5.40); Red Cell Distribution Width 13 % (10.5-15); White Blood Count 7.9 10^3/ul (3.5-10.8)
[2018-06-11] MEDS ORDERED: Nitroglycerin 2% OINT* 1 GM PAK (08:00)
[2018-06-11] MEDS: Nitroglycerin 2% OINT* 1 GM PAK TOPICAL SCH ×2 (08:31→15:00)
[2018-06-11] MEDS: Aspirin 81 mg CHEW TAB* 81 MG TAB.CHEW PO SCH (08:36)
[2018-06-11] MEDS: Oxybutynin TAB* 5 MG PO SCH ×2 (08:36→20:53)
[2018-06-11] MEDS: Metoprolol Tartrate TAB* 25 MG PO SCH ×2 (08:36→20:53)
--- NOTE | 2018-06-11 09:58 | PN ---
Subjective Date of Service: 06/11/18 Interval History: Pt reports she feels much better today. She denies any CP stating the nitro patch has made a difference. She reports she feels very fatigue when ambulating to bathroom and back with some mild SOB. Denies fever or chills or recent illness. Denies palpitations. Denies orthpnea or LE swelling Dr. Johnson into see patient this morning - case was discussed. Pt and two daughters at the bedside. Agree with plan for cardiac cath on wednesday Objective Active Medications: Acetaminophen (Tylenol Tab*) 650 mg PO Q4H PRN PRN Reason: FEVER/PAIN Aspirin (Aspirin 81 Mg Chew Tab*) 81 mg PO DAILY [facility] Last Admin: 06/11/18 08:36 Dose: 81 mg Heparin Sodium (Porcine) (Heparin Vial(*)) 0 units IV .PER PROTOCOL PRN PRN Reason: SEE HEPARIN PROTOCOL Heparin Sodium/Dextrose (Heparin Drip 25,000 Units(*)) 25,000 units in 500 mls @ 0 mls/hr IV PER RATE [facility]; Protocol Last Admin: 06/10/18 22:09 Dose: 16 mls/hr Lorazepam (Ativan Tab(*)) 0.5 mg PO Q8HR PRN PRN Reason: ANXIETY Metoprolol Tartrate (Lopressor Tab*) 25 mg PO BID [facility] Last Admin: 06/11/18 08:36 Dose: 25 mg Nitroglycerin (Nitroglycerin 2% Oint*) 0.5 inch TOPICAL 0800,1400 [facility]; Protocol Last Admin: 06/11/18 08:31 Dose: 0.5 inch Ondansetron HCl (Zofran Inj*) 4 mg IV Q6H PRN PRN Reason: NAUSEA Oxybutynin Chloride (Ditropan Tab*) 5 mg PO BID [facility] Last Admin: 06/11/18 08:36 Dose: 5 mg Pharmacy Profile Note (Nitro Patch/Oint Remove*) 1 note TOPICAL DAILY@1999 [facility] Vital Signs - 8 hr 06/11/18 06/11/18 06/11/18 02:00 02:30 03:00 Temperature Pulse Rate 55 54 56 Respiratory 15 13 12 Rate Blood Pressure 101/64 101/70 93/61 (mmHg) O2 Sat by Pulse 95 95 95 Oximetry 06/11/18 06/11/18 06/11/18 03:30 03:42 04:00 Temperature 97.1 F Pulse Rate 55 56 Respiratory 1 17 Rate Blood Pressure 94/64 92/72 (mmHg) O2 Sat by Pulse 96 98 Oximetry 06/11/18 06/11/18 06/11/18 04:04 04:30 05:00 Temperature Pulse Rate 58 56 Respiratory 15 14 Rate Blood Pressure 123/80 109/73 (mmHg) O2 Sat by Pulse 96 98 96 Oximetry 06/11/18 06/11/18 06/11/18 05:30 06:00 06:30 Temperature Pulse Rate 59 58 57 Respiratory 20 13 13 Rate Blood Pressure 104/64 109/65 104/69 (mmHg) O2 Sat by Pulse 95 96 97 Oximetry 06/11/18 06/11/18 07:00 08:00 Temperature 97.4 F Pulse Rate 58 Respiratory 10 Rate Blood Pressure 107/67 (mmHg) O2 Sat by Pulse 97 Oximetry Oxygen Devices in Use Now: None Appearance: well developed 78 yo female sitting up in a chair in NAD, A+O x3 Eyes: No Scleral Icterus, PERRLA Ears/Nose/Mouth/Throat: NL Teeth, Lips, Gums, Mucous Membranes Moist Neck: NL Appearance and Movements; NL JVP Respiratory: Symmetrical Chest Expansion and Respiratory Effort, Clear to Auscultation Cardiovascular: NL Sounds; No Murmurs; No JVD, RRR, No Edema Abdominal: NL Sounds; No Tenderness; No Distention Extremities: No Edema, No Clubbing, Cyanosis Skin: No Rash or Ulcers, No Nodules or Sclerosis Neurological: Alert and Oriented x 3, NL Sensation, NL Muscle Strength and Tone Lines/Tubes/Other Access: Clean, Dry and Intact Peripheral IV Nutrition: Taking PO's Result Diagrams: 06/11/18 04:36 06/10/18 22:10 Microbiology and Other Data: Microbiology 06/10/18 21:11 Nasal Screen MRSA (PCR) - Final Nasal Mrsa Not Detected Assess/Plan/Problems-Billing Assessment: Mrs. Ruth is a 78 yo female with a PMH of HTN, afib, thyroid cancer , overactive bladder, anxiety who presented to the ER on 06/10 with c/o of near syncope and palpitations - Patient Problems (1) Chest pain Comment: _Clinicall stable. CP free - Troponin peaked at 0.97 - noted EKG changes - NSTEMI - started n Heparin gtt on admission - continue Nitro paste, BB, ASA - Appreciate Dr. Stanford consult - agrees with plan above - scheduled for cardiac cath on Wednesday - Stable to transfer to [facility] (2) Near syncope Comment: - no episodes since admission (3) Afib Comment: - controlled - continue metoprolol, heparin gtt, asa (home eliquis on hold) (4) HTN (hypertension) Comment: - labile SBP 90-160 - continue BB - continue to monitor (5) Anxiety Comment: - reports significant anxiety at baseline - currently feels okay - continue ativan prn (6) Hx of thyroid cancer Comment: - s/p total thyroidectomy approx 8 years ago - Thyroid labs - hyperthyroid - synthroid held this am. will reduce home dose synthroid and restart tomorrow (7) DVT prophylaxis Comment: HSQ (8) Patient is full code Status and Disposition: inpatient. Plan for cardiac cath wednesday
--- NOTE | 2018-06-11 12:06 | CONS ---
CC: Jeniffer Johnston NP; Dr. Jose Cia. CARDIOLOGY CONSULTATION: DATE OF CONSULT: 06/11/18 INDICATION FOR CONSULTATION: Acute coronary syndrome, abnormal EKG. HISTORY OF PRESENT ILLNESS: The patient is a 78-year-old female who is recently diagnosed with parox ysmal atrial fibrillation. The patient was seen couple of months ago because of leg edema and EKG at that time showed atrial fibrillation. At that time, Dr. Cai started the patient on Eliquis and di d cardiac evaluation. The patient underwent an echocardiogram in the middle of April, which showed nor mal LV size and systolic function, moderate left atrial dilatation, no significant valvular abnormali ties. The patient also underwent a stress test, her stress nuclear demonstrated normal perfusion thr oughout the myocardium. No evidence of ischemia. The patient has been doing well until about a week ago until when she started having episodes of lightheadedness and GI upset. The patient states she just was not feeling well. She said she went to a function with a bunch of friends. She was sitting and felt like she was going to pass out, but was able to catch herself. She was also experiencing d iarrhea. The patient's daughter yesterday thought that the patient just didn't look well, she was lo oking fatigued and the patient was complaining of stomach upset. She was brought to the emergency ro om. In the emergency room, the patient's initial EKG demonstrated normal sinus rhythm with upright T -waves in V4 through V6. Later on in the admission in the emergency room, the patient started compla ining of pressure and a queasy feeling in her chest and EKG at that time showed flipped T-waves in le ads V4 through V6. The patient was put on nitroglycerin and admitted to the hospital. The patient w as ruled in for a small myocardial infarction with a peak troponin level of 0.9. Since she has been in the hospital, she has had no arrhythmias. PAST MEDICAL HISTORY: Significant for hypertension, thyroid cancer, hypothyroidism, paroxysmal atria l fibrillation. PAST SURGICAL HISTORY: Status post hysterectomy and thyroidectomy. ALLERGIES: To SULFA medications and NONSTEROIDALS. OUTPATIENT MEDICATIONS: 1. Eliquis 5 mg b.i.d. 2. Levothyroxine 75 mcg a day. 3. Oxybutynin 5 mg twice a day. 4. Atenolol 25 mg a day. 5. Lisinopril hydrochlorothiazide 10/12.5 mg once a day. SOCIAL HISTORY: She is . She lives half her year down in [place]. She is retired. She aracelis es tobacco or alcohol use. She exercises sporadically. FAMILY HISTORY: Father had a history of myocardial infarction. He of colon cancer at 62. Moth er at 64 of lung cancer. PHYSICAL EXAM: Height is 5 feet 9 inches, weight is 157 pounds, temperature 97.4, heart rate is 60, blood pressure 107/67, respiratory rate is 13, oxygen saturation 97% on room air. Sclerae anicteric. Oropharynx is pink without erythema. Carotids are 2+ without bruits. JVD is normal. Thyroid has a thyroid scar. No abnormalities. Cardiac Exam: S1, S2 without any murmurs, rubs, or gallops. Lung s are clear to auscultation bilaterally. There is no dullness to percussion. Abdomen is soft, nonten saud, nondistended with normoactive bowel sounds. Extremities show minimal edema. She has 2+ pulses t hroughout. The patient is awake, alert, and oriented. She moves all 4 extremities equally. DIAGNOSTIC STUDIES/LAB DATA: CBC within normal limits. Chemistries within normal limits. BUN 27, c reatinine 0.9. AST and ALT are normal. Initial troponin 0.01. Peak troponin 0.97. Total cholestero l 172. LDL of 100. IMPRESSION AND PLAN: This is a 78-year-old female with a recent diagnosis of paroxysmal atrial fibri llation. She is on Eliquis and beta blockers over the last week or so. The patient is becoming more symptomatic. She has had episodes of lightheadedness with near syncope. She has also had increased GI upset. In the emergency room, the patient clearly had an episode of chest pain, which resulted i n T-wave inversions and an elevation in troponin level. For now, my recommendation is that the patie nt be observed in the hospital. The patient will undergo cardiac catheterization on Wednesday unless sy mptoms require more urgent cardiac catheterization. For now, I would like to observe her for any arr hythmias while she is in the hospital. My concern is that she is having bradycardia after converting from atrial fibrillation to normal sinus rhythm, this will just have to be observed. Further recomm endations pending results of her echocardiogram and cardiac catheterization. The patient is on heparin, aspirin, beta dipesh and Nitro paste and she will continue on her EVELIO inh ibitor. [id number]/[facility] #: [id number]
[2018-06-11] MEDS: Polyethylene Glycol 3350* 17 GM PACKET PO PRN (17:05)
[2018-06-11] MEDS ORDERED: Nitro Patch/OINT Remove TOPICAL SCH (20:00)
[2018-06-12 05:59] LABS: ABS Basophils 0 10^3/ul (0-0.2); ABS Eosinophils 0.1 10^3/ul (0-0.6); ABS Lymphocytes 1.3 10^3/ul (1.0-4.8); ABS Monocytes 0.4 10^3/ul (0-0.8); ABS Neutrophils 3.5 10^3/ul (1.5-7.7); ABS Nucleated RBC 0 10^3/ul; Eosinophil % 1.8 % (0-6); Hematocrit 37 % (35-47); Hemoglobin 12.9 g/dl (12.0-16.0); Lymphocyte % 25.1 % (25-47); Mean Corpuscular HGB Conc 35 g/dl (31-36); Mean Corpuscular Hemoglobin 30 pg (27-31); Mean Corpuscular Volume 87 fL (80-97); Mean Platelet Volume 7.2 um3 (7.4-10.4); Nucleated Red Blood Cells % 0; Platelet Count 173 10^3/ul (150-450); Red Blood Count 4.25 10^6/ul (4.00-5.40); Red Cell Distribution Width 14 % (10.5-15); White Blood Count 5.3 10^3/ul (3.5-10.8)
[2018-06-12] MEDS ORDERED: Levothyroxine TAB* 50 MCG TAB PO SCH (06:00)
[2018-06-12 06:15] LABS: EGFR Non-African American 72.9 (>60)
[2018-06-12] MEDS: Levothyroxine TAB* 25 MCG TAB PO SCH (06:31)
[2018-06-12] MEDS: Nitroglycerin 2% OINT* 1 GM PAK TOPICAL SCH (08:15)
[2018-06-12] MEDS: Polyethylene Glycol 3350* 17 GM PACKET PO PRN (08:15)
[2018-06-12] MEDS: Metoprolol Tartrate TAB* 25 MG PO SCH ×2 (08:15→20:33)
[2018-06-12] MEDS: Oxybutynin TAB* 5 MG PO SCH ×2 (08:15→20:33)
[2018-06-12] MEDS: Aspirin 81 mg CHEW TAB* 81 MG TAB.CHEW PO SCH (08:15)
[2018-06-12] MEDS: Heparin DRIP 25,000 UNITS(*) 25,000 UNITS/500 ML BAG IV SCH (09:34)
--- NOTE | 2018-06-12 10:39 | PN ---
Subjective Date of Service: 06/12/18 Interval History: pt denies any CP, SOB or presyncope sensations. Reports some fatigue. Otherwise feels well Objective Active Medications: Acetaminophen (Tylenol Tab*) 650 mg PO Q4H PRN PRN Reason: FEVER/PAIN Aspirin (Aspirin 81 Mg Chew Tab*) 81 mg PO DAILY [facility] Last Admin: 06/12/18 08:15 Dose: 81 mg Diazepam (Valium Tab(*)) 5 mg PO ONCE ONE Stop: 06/13/18 10:07 Diphenhydramine HCl (Benadryl Po*) 25 mg PO ONCE ONE Stop: 06/13/18 10:07 Heparin Sodium (Porcine) (Heparin Vial(*)) 0 units IV .PER PROTOCOL PRN PRN Reason: SEE HEPARIN PROTOCOL Heparin Sodium/Dextrose (Heparin Drip 25,000 Units(*)) 25,000 units in 500 mls @ 0 mls/hr IV PER RATE [facility]; Protocol Last Admin: 06/12/18 09:34 Dose: 13 mls/hr Sodium Chloride (Ns 0.9% 1000 Ml*) 1,000 mls @ 100 mls/hr IV .per rate [facility] Levothyroxine Sodium (Synthroid Tab*) 25 mcg PO DAILY@0600 [facility] Last Admin: 06/12/18 06:31 Dose: 25 mcg Lorazepam (Ativan Tab(*)) 0.5 mg PO Q8HR PRN PRN Reason: ANXIETY Metoprolol Tartrate (Lopressor Tab*) 25 mg PO BID [facility] Last Admin: 06/12/18 08:15 Dose: 25 mg Nitroglycerin (Nitroglycerin 2% Oint*) 0.5 inch TOPICAL 0800,1400 [facility]; Protocol Last Admin: 06/12/18 08:15 Dose: 0.5 inch Ondansetron HCl (Zofran Inj*) 4 mg IV Q6H PRN PRN Reason: NAUSEA Oxybutynin Chloride (Ditropan Tab*) 5 mg PO BID [facility] Last Admin: 06/12/18 08:15 Dose: 5 mg Pharmacy Profile Note (Nitro Patch/Oint Remove*) 1 note TOPICAL DAILY@2000 [facility] Last Admin: 06/11/18 21:11 Dose: 1 note Polyethylene Glycol/Electrolytes (Miralax*) 17 gm PO DAILY PRN PRN Reason: CONSTIPATION Last Admin: 06/12/18 08:15 Dose: 17 gm Vital Signs - 8 hr 06/12/18 06/12/18 06/12/18 03:50 07:18 08:05 Temperature 97.0 F 97.6 F Pulse Rate 57 58 Respiratory 20 18 14 Rate Blood Pressure 100/61 110/61 (mmHg) O2 Sat by Pulse 100 100 Oximetry Oxygen Devices in Use Now: None Appearance: A+O x3 well developed elderly female in NAD Eyes: No Scleral Icterus, PERRLA Ears/Nose/Mouth/Throat: NL Teeth, Lips, Gums, Mucous Membranes Moist Neck: NL Appearance and Movements; NL JVP Respiratory: Symmetrical Chest Expansion and Respiratory Effort, Clear to Auscultation Cardiovascular: NL Sounds; No Murmurs; No JVD, RRR, No Edema Abdominal: NL Sounds; No Tenderness; No Distention Extremities: No Edema, No Clubbing, Cyanosis Skin: No Rash or Ulcers, No Nodules or Sclerosis Neurological: Alert and Oriented x 3, NL Sensation, NL Gait, NL Muscle Strength and Tone Lines/Tubes/Other Access: Clean, Dry and Intact Peripheral IV Nutrition: Taking PO's Result Diagrams: 06/12/18 05:36 06/12/18 05:36 Microbiology and Other Data: Microbiology 06/10/18 21:11 Nasal Screen MRSA (PCR) - Final Nasal Mrsa Not Detected Assess/Plan/Problems-Billing Assessment: Mrs. Ruth is a 78 yo female with a PMH of HTN, afib, thyroid cancer , overactive bladder, anxiety who presented to the ER on 06/10 with c/o of near syncope and palpitations - Patient Problems (1) Chest pain Comment: -Clinically stable. CP free - Troponin peaked at 0.97 - noted EKG changes - NSTEMI - started on Heparin gtt on admission which will continue - continue BB, ASA, nitro paste DC by cards - TTE today - Appreciate Dr. Stanford consult - agrees with plan above - scheduled for cardiac cath on Wednesday. NPO after midnight (2) Near syncope Comment: - no episodes since admission - Cardiology questions if she is going in and out of afib with a possible pause causing the presyncopal feeling - no noted pasues on tele monitoring. Potential plan for event monitoring if unable to capture during hospitalization (3) Afib Comment: - controlled - continue metoprolol, heparin gtt, asa (home eliquis on hold) (4) HTN (hypertension) Comment: - labile stable - continue BB - continue to monitor (5) Anxiety Comment: - reports significant anxiety at baseline - currently feels okay - continue ativan prn (6) Hx of thyroid cancer Comment: - s/p total thyroidectomy approx 8 years ago - Thyroid labs - hyperthyroid - synthroid held this am. will reduce home dose synthroid and restart tomorrow - will need outpt follow up (7) DVT prophylaxis Comment: HSQ (8) Patient is full code Status and Disposition: inpatient. Plan for cardiac cath wednesday
--- NOTE | 2018-06-12 13:10 | ECHO ---
Patient: KRISTEL SALCIDO [facility] Rec#: [id number] : 1940 Date: 06/12/2018 Age: 78y Height: 175.26 cm / 69.0 in Weight: 67.13 kg / 148.0 lbs Sex: F BSA: 1.82 Room#: [facility] Admit Date#: 06/10/2018 Type: Inpatient Referring: Jacky Johnson MD Reading: Jacky Johnson MD Medical Esthetician: Cathi Braden CAROLE CC: Jeniffer Johnston, SASHA Transthoracic Echocardiogram Indication: Non Q-wave IN BP: 100/61 HR: 70 Rhythm: NSR Findings History: HTN,hypothyroid secondary to thyroidectomy + cancer,PAF. Technical Comments: The study quality is good. Completed at 1154. Left Ventricle: The left ventricular chamber size is normal. There are multiple regional wall motion abnormalities. There is mild to moderately decreased left ventricular systolic function. The estimated ejection fraction is 35-40%. Abnormal left ventricular diastolic function is observed. The mid anterior, mid anterolateral, apical anterior, and apical lateral wall segments are hypokinetic (score 2). Overall wallmotion score index is 2.00 Left Atrium: The left atrial chamber size is normal. Right Ventricle: The right ventricular cavity size is normal. The right ventricular global systolic function is normal. Right Atrium: The right atrium is slightly dilated. Aortic Valve: The aortic valve is trileaflet. There is no evidence of aortic regurgitation. There is no evidence of aortic stenosis. Mitral Valve: The mitral valve leaflets are mildly thickened. There is trace to mild mitral regurgitation. There is no evidence of mitral stenosis. Tricuspid Valve: The tricuspid valve leaflets are normal. There is moderate tricuspid regurgitation. The right ventricular systolic pressure is estimated at 30 mmHg. There is evidence of mild pulmonary hypertension. There is no tricuspid stenosis. Pulmonic Valve: The pulmonic valve appears normal. There is mild pulmonic regurgitation. There is no pulmonic stenosis. Pericardium: The pericardium appears normal. Aorta: There is mild dilatation of the ascending aorta. There is no dilatation of the aortic arch. There is no dilation of the aortic root. Pulmonary Artery: The main pulmonary artery appears normal. Venous: The inferior vena cava appears normal in size. There is a greater than 50% respiratory change in the inferior vena cava dimension. Conclusions There is mild to moderately decreased left ventricular systolic function. There are multiple regional wall motion abnormalities. The estimated ejection fraction is 35-40%. The mid anterior, mid anterolateral, apical anterior, and apical lateral wall segments are hypokinetic (score 2). The right ventricular global systolic function is normal. There is no evidence of aortic stenosis. There is trace to mild mitral regurgitation. There is moderate tricuspid regurgitation. There is evidence of mild pulmonary hypertension. The pericardium appears normal. Measurements Name Value Normal Range RVIDd (AP) 2D 2.9 cm (0.9 - 2.6) RVDdMajor (2D) 3.5 cm (2.2 - 4.4) RAd ISD 4CH 3.8 cm (3.4 - 4.9) RA (A4C)W 5.3 cm (2.9 - 4.6) IVSd (2D) 1 cm (0.6 - 1) LVPWd (2D) 0.7 cm (0.6 - 1) LVIDd (2D) 5 cm (3.6 - 5.4) LVIDs (2D) 3.2 cm - LV FS (2D) 36 % (25 - 45) Aortic Annulus 2.2 cm (1.4 - 2.6) Ao root diameter (2D) 3.5 cm (2.1 - 3.5) Ascending Ao 3.6 cm (2.1 - 3.4) Aortic arch 2.5 cm (1.8 - 3.4) Descending Ao 0.5 cm - LA dimension (AP) 2D 3.3 cm (2.3 - 3.8) LAd ISD 4CH 5.5 cm (2.9 - 5.3) LA ISD 4CH W 4.3 cm (2.5 - 4.5) Name Value Normal Range LA ESV SP 4CH (A/L) 40 ml - LA ESV SP 2CH (A/L) 57 ml - LA ESV BP (A/L) 67 ml - LA ESV BP (A/L) index 36.63 ml/m2 - LA ESV SP 4CH (MOD) 64 ml - LA ESV SP 2CH (MOD) 54 ml - Name Value Normal Range MV E-wave Vmax 0.6 m/sec - MV deceleration time 191 msec - MV A-wave Vmax 0.8 m/sec - MV E:A ratio 0.8 ratio - LV septal e' Vmax 0.04 m/sec - LV lateral e' Vmax 0.05 m/sec - LV E:e' septal ratio 15 ratio - LV E:e' lateral ratio 12 ratio - Name Value Normal Range AV Vmax 1 m/sec - AV VTI 22.7 cm - AV peak gradient 4.12 mmHg - AV mean gradient 1.9 mmHg - LVOT Vmax 0.9 m/sec - LVOT VTI 18.2 cm - LVOT peak gradient 3.27 mmHg - LVOT mean gradient 1.53 mmHg - Name Value Normal Range MR Vmax 3.4 m/sec - MR VTI 141 cm - Name Value Normal Range TR Vmax 2.6 m/sec - TR peak gradient 27 mmHg - RAP 3 mmHg - RVSP 30 mmHg - IVC diameter 2.1 cm - Name Value Normal Range PV Vmax 0.6 m/sec - PV peak gradient 1.25 mmHg - Wallmotion BAS Not Seen BA Not Seen BAL Not Seen BETO Not Seen BI Not Seen BIS Not Seen MAS Not Seen MA Hypokinetic MAL Hypokinetic MIL Not Seen IN Not Seen MIS Not Seen Not Seen AA Hypokinetic AL Hypokinetic AI Not Seen APEX Hypokinetic
[2018-06-12] MEDS ORDERED: Polyethylene Glycol 3350* 17 GM PACKET PO ONE (20:18)
[2018-06-12] MEDS ORDERED: Metoprolol Tartrate IV* 1 MG/ML 5 ML VIAL IV ONE (21:00)
[2018-06-12] MEDS ORDERED: Metoprolol Tartrate IV* 1 MG/ML 5 ML VIAL ONE (21:10)
--- NOTE | 2018-06-12 21:42 | PN ---
Hospitalist Progress Note Date of Service: 06/12/18 Called to bedside for HR 140's. Patient denies chest pain patient walking from bathroom. Denies sob and denies lightheadedness. Lungs cta tele shows irregular HR no murmur heard. 5mg iv lopressor given. HR now 65 NSR ekg shows t wave inversions with pvc. Cardiology updated.
[2018-06-13] MEDS ORDERED: NS 0.9% 1000 ML* 1,000 ML IV SCH (00:01)
[2018-06-13] MEDS: Levothyroxine TAB* 25 MCG TAB PO SCH (05:54)
[2018-06-13 06:16] LABS: ABS Basophils 0 10^3/ul (0-0.2); ABS Eosinophils 0.1 10^3/ul (0-0.6); ABS Lymphocytes 1.2 10^3/ul (1.0-4.8); ABS Monocytes 0.4 10^3/ul (0-0.8); ABS Neutrophils 3.6 10^3/ul (1.5-7.7); ABS Nucleated RBC 0 10^3/ul; Eosinophil % 1.9 % (0-6); Hematocrit 39 % (35-47); Hemoglobin 13.1 g/dl (12.0-16.0); Mean Corpuscular HGB Conc 34 g/dl (31-36); Mean Corpuscular Hemoglobin 30 pg (27-31); Mean Corpuscular Volume 88 fL (80-97); Mean Platelet Volume 6.9 um3 (7.4-10.4); Nucleated Red Blood Cells % 0.1; Platelet Count 192 10^3/ul (150-450); Red Blood Count 4.42 10^6/ul (4.00-5.40); Red Cell Distribution Width 13 % (10.5-15); White Blood Count 5.3 10^3/ul (3.5-10.8)
[2018-06-13 06:46] LABS: EGFR Non-African American 64.2 (>60)
[2018-06-13] MEDS ORDERED: Heparin(*) 1000 UNIT/ML 10 ML VIAL CATH LAB IV ONE (08:56)
[2018-06-13] MEDS ORDERED: Iohexol 350 (CONTRAST) 200 ML MDV IV ONE (08:57)
[2018-06-13] MEDS ORDERED: nitroGLYCERIN DRIP* 25,000 MCG/250 ML BTL ONE (08:57)
[2018-06-13] MEDS ORDERED: Heparin 2 UNITS/ML IVPREMIX* 2,000 ML IV ONE (08:57)
[2018-06-13] MEDS ORDERED: VERAPAMIL 2.5 MG/ML 2 ML VIAL ** 5 mg/2 ml ONE (08:57)
[2018-06-13] MEDS: Oxybutynin TAB* 5 MG PO SCH ×2 (08:59→20:32)
[2018-06-13] MEDS: Aspirin 81 mg CHEW TAB* 81 MG TAB.CHEW PO SCH (09:00)
[2018-06-13] MEDS: Metoprolol Tartrate TAB* 25 MG PO SCH ×2 (09:00→22:33)
[2018-06-13] MEDS ORDERED: fentaNYL* 50 MCG/ML 2 ML VIAL (100 MCG VIAL) ONE (09:21)
[2018-06-13] MEDS ORDERED: Midazolam* 1 MG/ML 10 ML VIAL (10 MG) ONE (09:21)
[2018-06-13] MEDS ORDERED: diPHENhydraMINE PO* 25 MG PO ONE (10:06)
[2018-06-13] MEDS ORDERED: Diazepam TAB(*) 5 MG PO ONE (10:06)
--- NOTE | 2018-06-13 11:52 | PN ---
Subjective Date of Service: 06/13/18 Interval History: Patient reports she is feeling well. She did have a sensation of mild dizziness when she stood up from the bed to the bathroom but it resolved within a minute. She denies feeling like she is going to pass out. Discussed with the daughter who is an RN her concern for her mother TSH being low - and if there is a correlation between hyperthyroid and takutsubos - she did find a few studies showing a correlation. Discussed sending her for consult with Dr. Cavazos (endocrine) for further follow up and they agree with that plan. Pt denies CP/SOB Objective Active Medications: Acetaminophen (Tylenol Tab*) 650 mg PO Q4H PRN PRN Reason: FEVER/PAIN Amiodarone HCl (Cordarone Tab*) 200 mg PO BID [facility] Apixaban (Eliquis*) 5 mg PO BID [facility] Sodium Chloride (Ns 0.9% 1000 Ml*) 1,000 mls @ 100 mls/hr IV .per rate [facility] Stop: 06/13/18 15:00 Last Admin: 06/13/18 00:11 Dose: 100 mls/hr Levothyroxine Sodium (Synthroid Tab*) 25 mcg PO DAILY@0600 [facility] Last Admin: 06/13/18 05:54 Dose: 25 mcg Lisinopril (Prinivil Tab*) 5 mg PO DAILY [facility] Lorazepam (Ativan Tab(*)) 0.5 mg PO Q8HR PRN PRN Reason: ANXIETY Metoprolol Tartrate (Lopressor Tab*) 25 mg PO BID [facility] Last Admin: 06/13/18 09:00 Dose: 25 mg Ondansetron HCl (Zofran Inj*) 4 mg IV Q6H PRN PRN Reason: NAUSEA Oxybutynin Chloride (Ditropan Tab*) 5 mg PO BID [facility] Last Admin: 06/13/18 08:59 Dose: 5 mg Polyethylene Glycol/Electrolytes (Miralax*) 17 gm PO DAILY PRN PRN Reason: CONSTIPATION Last Admin: 06/12/18 08:15 Dose: 17 gm Vital Signs - 8 hr 06/13/18 06/13/18 06/13/18 04:03 07:45 08:00 Temperature 97.6 F 97.6 F Pulse Rate 57 52 Respiratory 18 12 16 Rate Blood Pressure 132/75 130/69 (mmHg) O2 Sat by Pulse 100 100 Oximetry 06/13/18 06/13/18 06/13/18 09:00 10:57 11:00 Temperature Pulse Rate 53 50 Respiratory 16 17 14 Rate Blood Pressure 119/68 (mmHg) O2 Sat by Pulse 100 99 Oximetry 06/13/18 06/13/18 06/13/18 11:02 11:12 11:27 Temperature Pulse Rate 48 48 51 Respiratory 15 14 18 Rate Blood Pressure 120/69 113/65 112/65 (mmHg) O2 Sat by Pulse 98 99 98 Oximetry Oxygen Devices in Use Now: None Appearance: elderly female sitting up in bed in NAD, A+O x3 Eyes: No Scleral Icterus, PERRLA Ears/Nose/Mouth/Throat: NL Teeth, Lips, Gums, Mucous Membranes Moist Respiratory: Symmetrical Chest Expansion and Respiratory Effort, Clear to Auscultation Cardiovascular: RRR, No Edema Abdominal: NL Sounds; No Tenderness; No Distention Extremities: No Edema, No Clubbing, Cyanosis, - - right wrist in immobilzer - 2 + radial pulses, warm and well perfused Skin: No Rash or Ulcers, No Nodules or Sclerosis Neurological: Alert and Oriented x 3, NL Sensation, NL Gait, NL Muscle Strength and Tone Lines/Tubes/Other Access: Clean, Dry and Intact Peripheral IV Nutrition: Taking PO's Result Diagrams: 06/13/18 06:03 06/13/18 06:03 Microbiology and Other Data: Microbiology 06/10/18 21:11 Nasal Screen MRSA (PCR) - Final Nasal Mrsa Not Detected Assess/Plan/Problems-Billing Assessment: Mrs. Ruth is a 78 yo female with a PMH of HTN, afib, thyroid cancer , overactive bladder, anxiety who presented to the ER on 06/10 with c/o of near syncope and palpitations - Patient Problems (1) Chest pain Comment: -Cardiac cath today with Dr. Johnson - no noted coronary artery disease noted - dx Takotsubo's - patient has had no significant stressful events in her life - no recent illnesses and is generally very healthy. She was found to be hyperthyroid on admission... her thyroid labs are mildly abnormal... it is possible her hyperthyroid state could have caused the afib 5 weeks ago which it appears to be uncontrolled throughout her hospitalization - possible cause of her Takotsubo's??? Unclear eitiology. Plan to refer to Dr. Fortunato Cavazos on DC. Family agrees with plan of care - continue Metoprolol. Dr. Johnson recommends lisinopril for LV dysfuntion, and plan to start Amiodarone 200 BID x 7 days, the 200 mg daily. DC ASA and restart Eliquis tomorrow. (2) Near syncope Comment: - noted episodes of feeling unwell with rapid afib episode. Plan as stated above - some mild nonspecific dizziness - obtain orthostatic VS (3) Afib Comment: pt noted to be in and out of afib with RVR and NSR - see above for plan (4) HTN (hypertension) Comment: - stable - DC HCTZ on DC (5) Anxiety Comment: - reports significant anxiety at baseline - currently feels okay - continue ativan prn (6) Hx of thyroid cancer Comment: - s/p total thyroidectomy approx 8 years ago - Thyroid labs showing hyperthyroid - synthroid home dose 75 mcg - has decreased to 25 mcg - see above - refer to Dr. Cavazos (7) DVT prophylaxis Comment: HSQ (8) Patient is full code Status and Disposition: inpatient. tentative plan for DC to home tomorrow if tolerating medications
[2018-06-13] MEDS: Lisinopril TAB* 5 MG PO SCH (14:15)
[2018-06-13] MEDS: Polyethylene Glycol 3350* 17 GM PACKET PO PRN (20:32)
[2018-06-13] MEDS: Amiodarone TAB* 200 MG PO SCH ×2 (21:58→22:34)
--- NOTE | 2018-06-14 04:00 | CATH ---
CC: Dr. Jose Cai * CARDIAC CATHETERIZATION REPORT: DATE OF PROCEDURE: 06/13/18 - ROOM #446 INDICATION FOR STUDY: Acute coronary syndrome. The patient is a 78-year-old female who has a history of paroxysmal atrial fibrillation, was admitted to the hospital with severe chest pain and profound EKG changes. She had T-waves in her lateral leads. The patient's elevation of troponin was 0.9. The patient's echocardiogram showed significant hypokinesis in the distal anterior wall and apex. Cardiac catheterization was recommended. PROCEDURE: Coronary angiography. DESCRIPTION OF PROCEDURE: The patient was brought to the cardiac catheterization lab in a fasting state. Informed consent had been obtained prior to the procedure. All labs were reviewed. The patient was placed supine on the catheterization table. Her right radial wrist area was prepped and draped in the usual fashion. 1% lidocaine was used for local anesthesia. Using a Seldinger technique, the radial artery was entered and a guidewire was placed over the guidewire, a 6-Serbian hydrophilic sheath was placed. Through the sheath, a cocktail of heparin, nitroglycerin, and verapamil was infused. The patient underwent coronary angiography using a 6-Serbian TIG catheter. At the end of the procedure, all sheath and caths were removed. The patient tolerated the procedure well with no complications. A total of 30 cc of Omnipaque dye was used. A total of 1.4 minutes of fluoro time was used. FINDINGS: Coronary arteries: 1. Left main: Her left main was normal in size. It bifurcated into the LAD and circumflex. There was no evidence of stenosis. 2. Left anterior descending: The LAD was normal in size. It gave off two diagonal vessels. There was no evidence of stenosis. 3. Left circumflex artery: The circumflex artery was normal in size. It gave off two obtuse marginal branches. There was no evidence of stenosis. 4. Right coronary artery. The RCA was a large dominant vessel. It gave off the PDA. There was no evidence of stenosis. IMPRESSION: 1. Successful radial artery catheterization. 2. Normal coronary arteries. RECOMMENDATION: The patient will continue on maximum medical therapy for her Takotsubo's cardiomyopathy and atrial fibrillation. [id number]/[facility] #: [id number] MTDD
--- NOTE | 2018-06-14 05:29 | PN ---
Progress Note - Progress Note Date of Service: 06/14/18 Note: Nursing requested evaluation for cold R hand s/p R radial cath. R hand is noted to be markedly cold compared to L, but painless. R radial pulse is strong. Coloration of hands is symmetric. Active & passive ROM of wrist & fingers intact. Advised warm compress & continued monitoring.
[2018-06-14 05:45] LABS: ABS Basophils 0.1 10^3/ul (0-0.2); ABS Eosinophils 0.1 10^3/ul (0-0.6); ABS Lymphocytes 1.5 10^3/ul (1.0-4.8); ABS Monocytes 0.4 10^3/ul (0-0.8); ABS Neutrophils 4.5 10^3/ul (1.5-7.7); ABS Nucleated RBC 0 10^3/ul; Eosinophil % 1.9 % (0-6); Hematocrit 42 % (35-47); Hemoglobin 14.1 g/dl (12.0-16.0); Lymphocyte % 22.8 % (25-47); Mean Corpuscular HGB Conc 34 g/dl (31-36); Mean Corpuscular Hemoglobin 30 pg (27-31); Mean Corpuscular Volume 89 fL (80-97); Mean Platelet Volume 7.1 um3 (7.4-10.4); Nucleated Red Blood Cells % 0.1; Platelet Count 220 10^3/ul (150-450); Red Blood Count 4.71 10^6/ul (4.00-5.40); Red Cell Distribution Width 13 % (10.5-15); White Blood Count 6.6 10^3/ul (3.5-10.8)
[2018-06-14] MEDS: Levothyroxine TAB* 25 MCG TAB PO SCH (06:26)
[2018-06-14] MEDS: Oxybutynin TAB* 5 MG PO SCH (08:27)
[2018-06-14] MEDS: Metoprolol Tartrate TAB* 25 MG PO SCH (08:27)
[2018-06-14] MEDS: Lisinopril TAB* 5 MG PO SCH (08:28)
[2018-06-14] MEDS: Polyethylene Glycol 3350* 17 GM PACKET PO PRN (08:40)
[2018-06-14] MEDS ORDERED: Amiodarone TAB* 200 MG PO SCH (09:00)
[2018-06-14] MEDS ORDERED: Apixaban* 5 MG TAB PO SCH (09:00)
[2018-06-14 14:30] VITALS: BP 100/57
--- NOTE | 2018-06-15 01:26 | DS ---
CC: Jeniffer Johnston NP; Dr. Jose Cai; Dr. Bogdan Cavazos * DISCHARGE SUMMARY: DATE OF ADMISSION: 06/10/18 DATE OF DISCHARGE: 06/14/18 PRIMARY CARE PROVIDER: Jeniffer Johnston NP OUTPATIENT ANIMAL CARE SUPERVISOR: Dr. Jose Cai. MY ATTENDING WHILE IN THE HOSPITAL: Dr. Per James.* (DICTATED BY MELITON CERVANTES) SUPERVISOR CHEMICAL: Dr. Bogdan Cavazos. PRIMARY DISCHARGE DIAGNOSES: 1. Jrd-YC-ajzpsxlcx myocardial infarction. 2. Takotsubo's cardiomyopathy 3. Paroxysmal atrial fibrillation. 4. Probable iatrogenic hyperthyroidism. SECONDARY DISCHARGE DIAGNOSES: 1. History of thyroid cancer. 2. Overactive bladder. 3. Anxiety. 4. Hypertension. STUDIES DONE WHILE IN THE HOSPITAL: Electrocardiogram from 06/10/18 shows normal sinus rhythm, non-ST segment abnormalities, rate of 61, QTc of 426, T- wave inversion in aVL, normal axis. No other abnormalities. Repeat EKG from accompanied by chest pain shows new T-wave inversions in V3 through V6 as well as II, III, aVF, T-wave flattening in V1 and aVL as well as mildly upright T-wave and aVR. Repeat EKG from 06/11/18 shows persistent T-wave inversions from V1 through V6, increased height of T-waves in aVR, rate of 59, QTc of 526. Repeat EKG from shows persistent T-wave inversions in V3 through V6; resolution of T-wave inversions in V1 and V2; persistent T-wave inversions in I, II, III, aVF and aVL ; persistent upright T-wave in aVR. Chest x-ray from 06/10/18 read as, active disease. Transthoracic echocardiogram from 06/12/18 read as, there is [id number] decreased left ventricular systolic function. There are multiple regional wall motion abnormalities with estimated ejection fraction of 35% to 40%. Mid anterior lateral, apical anterior, and apical lateral wall segments were hyperkinetic. Right ventricular goal systolic function is normal. No evidence of atrial stenosis. There is [id number] mitral regurgitation. There is mild tricuspid regurgitation. There is evidence of mild pulmonary hypertension. Pericardium appears normal. Cardiac catheterization from 06/13/18 read as left main, normal size. No evidence of stenosis. Left anterior descending, normal size. No evidence of stenosis. Left circumflex, normal in size. No evidence of stenosis. Right coronary artery, no evidence of stenosis. MEDICATIONS AT DISCHARGE: 1. Oxybutynin 5 mg p.o. b.i.d. 2. Lorazepam 0.5 mg p.o. q.8 hours as needed. 3. MiraLAX 17 g p.o. every other day as needed. 4. Align 4 mg p.o. daily. 5. Apixaban 5 mg p.o. b.i.d. 6. Tylenol 650 mg p.o. q.4 hours as needed. 7. Amiodarone 200 mg p.o. b.i.d. for 6 days followed by 200 mg daily. 8. Levothyroxine 25 mcg p.o. daily. 9. Lisinopril 5 mg p.o. daily. 10. Metoprolol tartrate 25 mg p.o. b.i.d. New medications at discharge: 1. Tylenol. 2. Amiodarone. 3. Levothyroxine. 4. Lisinopril. 5. Metoprolol. Medication discontinued at discharge: 1. Atenolol 25 mg p.o. daily. 2. Zestoretic 08/05.5 one tab p.o. daily. 3. Levothyroxine 75 mcg p.o. daily. HOSPITAL COURSE: This is a brief summary of the patient's presentation. For more details, please see the history and physical from Riky Aquino NP, on . In brief, the patient is a 78-year-old female with the past medical history significant for the above, who presented to the emergency department with palpitations as well as intermittent episodes of presyncope. The patient was recently noted to have atrial fibrillation, provoked by a stress test and was started Eliquis and Tylenol; however, she 10 days before admission continued to have palpitations and presyncope with no episodes of true syncope, however, and several times according to her family, she lost strength in her arms and lowered herself to the ground. The patient has intermittent shortness of breath with talking, but had no noticeable decrease in exercise tolerance, walking up to 6 miles a day. The patient has long-term history of lower extremity swelling, for which she wears compression stockings and had a previous negative cardiac workup, which was attributed to her treatment for precancerous lesions on her legs. The patient in the emergency department had some chest pressure. She initially had a normal echocardiogram as above, but then developed persistent chest pressure while in the hospital, which was accompanied by T-wave inversions on her repeat echocardiogram. The patient was put on a sublingual nitroglycerin, which did not help and was put on a nitro patch, which helps with her pain. The patient was also placed on a heparin drip and beta-blockers. The patient was found to be hypomagnesemic and this was replaced. The patient initially had a troponin of 0.01, but increased to 0.97 and decreased to 0.78. The patient had an LDL cholesterol of 100, HDL cholesterol of 53.9, triglycerides 92, cholesterol of 172. The patient had trace blood in her urine. The patient had a TSH of 0.17. The patient had a hemoglobin A1c of 5.9. The patient's CBC was otherwise unremarkable. The patient was maintained on a heparin drip and her amiodarone was held. The patient was seen in consultation by Dr. Jacky Johnson of Cardiology. The patient had an episode of tachycardia consistent with atrial fibrillation in the evening of 06/12/18. I was concerned that the patient was having blocks associated with her conversion to atrial fibrillation; however, one was not observed during this episode. The patient was chest pain free through this time. The patient was planned to have a cardiac cath on Wednesday. The patient was continued on heparin, aspirin, nitro patch, and beta-dipesh. The patient had a cardiac catheterization as above on 06/13/18 showing normal coronary arteries and possible Takotsubo's cardiomyopathy. The patient's thyroid hormone was decreased from 75 to 25 mcg daily due to high T4 and low TSH as well as atrial fibrillation. The patient has also had increasing episodes of anxiety. The patient had no complications from her cardiac catheterization. The patient's radial site closed well. The patient was started on amiodarone 200 mg p.o. b.i.d. and after that had no episodes of lightheadedness or arrhythmia on EKG. The patient was maintained on metoprolol as above. It was believed that the patient's cardiomyopathy was possibly related to Takotsubo's from her iatrogenic hyperthyroidism. The patient was scheduled to see Dr. Bogdan Cavazos, outpatient. The patient was stable and amenable for discharge on 06/14/18. PHYSICAL EXAMINATION ON DAY OF DISCHARGE: General: The patient is a 78-year- old female, who appears stated age and is sitting comfortably in bed, in no acute distress. HEENT: Head, normocephalic, atraumatic. Sclerae anicteric. No conjunctival injection. Nasal mucosa moist. Oral mucosa moist. No pharyngeal erythema, discharge, or exudate. Neck: Supple, nontender. No lymphadenopathy. No carotid bruits auscultated. No JVD. Cardiac: Regular rate and rhythm. No clicks, murmurs, gallops, or rubs. Pulses are 2+ bilaterally in dorsalis pedis, posterior tibialis, and radial areas. No bilateral calf tenderness noted. Trace bilateral lower extremity edema. Respiratory: Clear to auscultation bilaterally. No wheezes, rales, or rhonchi. Good air exchange bilaterally. Abdomen: Soft, nontender, nondistended. Bowel sounds present and normoactive in all 4 quadrants. No hepatosplenomegaly. No abdominal bruits auscultated. No hepatojugular reflux. Genitourinary: No suprapubic or CVA tenderness. Skin: Skin changes consistent with chronic venous stasis in the bilateral lower extremities. No other rashes. Neuro: Cranial nerves II through XII intact. No focal deficits. Alert and oriented x3. Psychiatric: Pleasant and cooperative. DISCHARGE PLAN: The patient will be discharged to home. The patient will have support from her family. The patient will continue on amiodarone 400 mg daily for a total of 7 days and then be transitioned to 200 mg p.o. daily. The patient will follow up with primary care provider within 1 week for general medical management and follow up closely with Dr. Jose Cai and Dr. Jose Cai's office for management of her cardiomyopathy, antiarrhythmic medications and for short-term followup for placement of a long-term Holter monitor to assess for arrhythmia as well as possible pauses. The patient had no episodes of atrial fibrillation while she was on amiodarone. Given the patient's poor tolerance for her atrial fibrillation, even while she was on rate controlled therapy, rhythm control will be pursued at this time. The patient will follow up with Dr. Bogdan Cavazos for discussion of her possible iatrogenic hyperthyroidism and for repeat TSH values to assess the efficacy of her adjusted regimen. We will also discuss the possible link between her Takotsubo's cardiomyopathy and her hyperthyroidism. The patient should have a repeat echocardiogram at the discretion of her outpatient chalk machine operator to assess her improvement in her wall motion abnormalities and decreased ejection fraction. The patient will be continued on lisinopril, metoprolol, and amiodarone as above due to decreased ejection fraction. The patient will be on Eliquis for anticoagulation. The patient should return to the hospital for syncope, chest pain, severe shortness of breath, or other alarming symptoms. The patient should have a heart-healthy diet without caffeine. Engage in activities as tolerated. The patient should discuss with her primary care provider, her diagnosis of prediabetes. However, it was discussed with the patient given her age, lack of significant coronary artery disease, and prediabetic status that she will not likely need aggressive management of her diabetes. TIME SPENT: Approximately 60 minutes were spent on this discharge, 30 of which was spent [id number] with the patient obtaining the history and physical and discussing treatment plan. MELITON CERVANTES [id number]/[facility] #: [id number] JULIANNE
== END 2018-06-14 15:40 | disposition home or self-care (01) | DRG 281 ==
LOC: ED 16:13 → ICU 18:47 → MEDTELE 06-11 18:20
PROVIDERS: ADMIT Hospitalist; ATTEND Student in an Organized Health Care Education/Training Program
PROC: B211YZZ Fluoroscopy of Multiple Coronary Arteries using Other Contrast (ICD-10-PCS; principal; 2018-06-13 09:15)
DX: I21.4 Non-ST elevation (NSTEMI) myocardial infarction (principal); I51.81 Takotsubo syndrome; I48.0 Paroxysmal atrial fibrillation; E05.80 Other thyrotoxicosis without thyrotoxic crisis or storm; N32.81 Overactive bladder; F41.9 Anxiety disorder, unspecified; E83.42 Hypomagnesemia; I10 Essential (primary) hypertension; Z85.850 Personal history of malignant neoplasm of thyroid; Z79.01 Long term (current) use of anticoagulants; Z79.899 Other long term (current) drug therapy; Z88.2 Allergy status to sulfonamides; Z80.1 Family history of malignant neoplasm of trachea, bronchus and lung; Z80.0 Family history of malignant neoplasm of digestive organs; Z82.49 Family history of ischemic heart disease and other diseases of the circulatory system
CPT/HCPCS: 36415; 71045; 80048; 80053; 80061; 81003; 81015; 82565; 83036; 83605; 83735; 83880; 84436; 84439; 84443; 84479; 84481; 84484; 84520; 85025; 85379; 85610; 85730; 87086; 87641; 93005; 93306; 93454; 99156; 99157; 99285; A9270-GY; G8978-GP-CI; G8979-GP-CI; G8980-GP-CI; J1644; J2250; J3010; J3475; J3490

== ENCOUNTER 2018-06-17 16:50 | Emergency (ER) | payer MEDICARE ==
--- OUTSIDE RECORDS SUMMARY | 2018-06-17 17:16 | XMS REPORT ---
:1940 External Reference #:[id number] Author Organization [facility] Address [address] [place] [address] Phone [phone] Care Team Providers Name Role Phone Fawn Santana MD Care Team Information Assistant Program Manager Unavailable Jeniffer Johnston NP Primary Care Physician Unavailable Payers Type Date Identification Numbers Payment Provider Subscriber Medicare Primary Policy Number: [id number] Medicare Angella Ruth PayID: [id number] [address] [place] [address] [facility] Policy Number: [id number] [facility] Angella Ruth Group Name: Medicare [address] PayID: [id number] [place] [address] Problems Date Description Provider Status Onset: 07/20/2016 Displacement of lumbar intervertebral disc YOBANI Muñiz Active without myelopathy Family History Date Family Member(s) Problem(s) Comments General Cancer Father Coronary Artery Disease (CAD) Father due to Colon Cancer () - age 62 Father [place] Mother Hypertension Mother due to Lung Cancer () - age 64 Mother [place] First Daughter Rheumatoid Arthritis Second Daughter Hypercholesterolemia First Brother Hypertension First Brother Hypercholesterolemia Second Brother Hypertension Second Brother Hypercholesterolemia Third Brother Hypertension Third Brother Rheumatoid Arthritis First Sister Arthritis First Sister [place] Social History Type Date Description Comments Marital [...] directed Lisinopril-Hydrochlo Active Tablets 10-12.5mg Take 1 /2 Unknown rothiazide /0000 Tablet By Mouth Every Day Gabapentin Hx Capsules 100mg Unknown /0000 - 03/25 Prednisone Hx Tablets 10mg Unknown /0000 - 03/25 Tramadol HCL Hx Tablets 50mg Unknown /0000 - 03/25 Diazepam Hx Tablets 5mg Unknown /0000 - 03/25 Ondansetron Hx Tablets 4mg Unknown /0000 Dispers - 03/25 Amlodipine Besylate Hx Tablets 5mg Unknown /0000 - 03/25 Cyclobenzaprine HCL Hx Tablets 5mg [...] Inj, Administered Injection Jose Jackson Regadenoson, 018 Trell, 0.1 MG FACC Technetium TC 07/18/2 Administered Injection Jose Cai DO Tetrofosmin, FACC [...] Information Procedures Date CPT Code Description Status 05/19/2018 54996 Dest Lesion Each Addl Lesion 2 Through 14 Each Completed 05/19/2018 31699 Destruction ALL Benign Or Premalignant Lesion (Other Completed Than [place] 05/18/2018 62916 EKG Tracing & Interpretation Completed 05/11/2018 12700 Stress Test Completed 05/11/2018 10876 Myocardial Perfusion Imaging Tomographic (Spect) Completed Multiple Studies 05/10/2018 42878 ECHO Transthoracic, Real-Time 2D With Doppler And Color Completed Flow 05/10/2018 18694 ECHO Transthoracic, Real-Time 2D With Doppler And Color Completed Flow 04/26/2018 71674 EKG Tracing & Interpretation Completed 04/05/2018 00611 Destruction Of Lesions 15+ Completed 08/14/2008 51905 EKG, Interpretation Only Completed Encounters Type Date Location Provider CPT E/M Dx Office Visit 05/19/2018 11:30a [facility] [place] [address] I87.2 L57.0 Office Visit 05/18/2018 10:30a [facility] [place] [address] I48.0 Pcu Rn FACC I10 Office Visit 04/26/2018 10:40a [facility] [place] [address] R06.02 Pcu Rn FACC R94.31 I49.3 Office Visit 04/19/2018 10:40a [facility] [place] [address] L57.0 R60.0 Office Visit 04/05/2018 4:10p [facility] [place] [address] R60.0 Z08 Z85.828 L57.0 Office Visit 07/20/2016 10:00a [facility] MELITON Muñiz-C [address]230 M51.26 Of [facility] Office [facility]ATING ELEMENT BUILDER [address]102 M54.9 Assoc,[facility] Hospitalists E89.0 M51.26 N32.81 Office Visit 07/17/2016 11:09a [facility] Andrew Shen, [address] M54.9 Assoc,pc [place] Hospitalists E89.0 M51.26 N32.81 Plan of Care Future Appointment(s):07/25/2018 11:10 am - Tony Vaughan MD at [facility] Sflqjrkohcg94/25/2018 - Jose Cai DO FACCI48.0 Paroxysmal atrial fibrillationComments:Do not take any aspirin or NSAID's. The only over the counter pain medication you can take is tylenol (acetaminophen)Follow up:f/u March,I10 Essential (primary) hypertension
[2018-06-17 18:31] LABS: ABS Basophils 0 10^3/ul (0-0.2); ABS Eosinophils 0.1 10^3/ul (0-0.6); ABS Lymphocytes 1.2 10^3/ul (1.0-4.8); ABS Monocytes 0.4 10^3/ul (0-0.8); ABS Neutrophils 4.1 10^3/ul (1.5-7.7); ABS Nucleated RBC 0 10^3/ul; Eosinophil % 1.7 % (0-6); Hematocrit 38 % (35-47); Hemoglobin 12.6 g/dl (12.0-16.0); Lymphocyte % 20.6 % (25-47); Mean Corpuscular HGB Conc 33 g/dl (31-36); Mean Corpuscular Hemoglobin 30 pg (27-31); Mean Corpuscular Volume 89 fL (80-97); Mean Platelet Volume 7.3 um3 (7.4-10.4); Nucleated Red Blood Cells % 0; Platelet Count 205 10^3/ul (150-450); Red Blood Count 4.27 10^6/ul (4.00-5.40); Red Cell Distribution Width 14 % (10.5-15); White Blood Count 5.8 10^3/ul (3.5-10.8)
[2018-06-17 18:45] LABS: EGFR Non-African American 51.5 (>60)
[2018-06-17] MEDS ORDERED: Pantoprazole IV* 40 MG IV ONE (19:31)
--- NOTE | 2018-06-17 19:33 | ED ---
HPI Chest Pain - HPI Summary HPI Summary: The pt is a 78 y/o female presenting of CP since 6 weeks ago worsened today. The sx begun when she returned from a trip to [place]. The pain described as sharp and stabbing is rated 6/10 in intensity. The pain radiates to her shoulder and alleviated by a cold pack. The pt had a STEMI 1 week ago and visited the ED where she was given new medications not including Beta dipesh. She notes acid reflux, palpitations, weakness, fatigue, pedal edema, dizzy spells, mild BURGOS, one episode of syncope, and severe anxiety (since her thyroid medications were changed). The pt denies any recent stressors. She also denies any diplopia sore throat, neck pain , SOB, abd pain, dysuria, melena , rashes, and bruising. - History of Current Complaint Chief Complaint: EDChestPainROMI Hx Obtained From: Patient, Family/Sap Business Objects Developer - Daughters Onset/Duration: Started Weeks Ago - 6 weeks ago, Still Present Timing: Lasting Weeks - 6 weeks Initial Severity: Worse Since: - Today Current Severity: None Pain Intensity: 0 Pain Scale Used: 0-10 Numeric Chest Pain Radiates: Yes Chest Pain Radiates To:: Shoulder Character: Sharp/Stabbing Associated Signs and Symptoms: Positive: Negative - diplopia sore throat, neck pain ,abd pain, dysuria, melena , rashes, and bruising, Chest Pain, Anxiety, Headaches - Mild, Weakness, Syncope, Palpitations, Nonproductive Cough, Other: - Dizziness. Negative: Recent Stress, Shortness of Breath - Additional Pertinent History Primary Care Physician: [id number] - Allergy/Home Medications Allergies/Adverse Reactions: Allergies Allergy/AdvReac Type Severity Reaction Status Date / Time Sulfa (Sulfonamide Allergy Nausea And Verified 06/17/18 17:00 Antibiotics) Vomiting PMH/Surg Hx/FS Hx/Imm Hx Endocrine/Hematology History: Reports: Hx Thyroid Disease - thyroid CA, thyroid removed Denies: Hx Diabetes Cardiovascular History: Reports: Hx Hypertension, Hx Peripheral Vascular Disease , Hx Syncope Denies: Hx Pacemaker/ICD GI History: Reports: Hx Diverticulosis, Hx Gastroesophageal Reflux Disease, Other GI Disorders - polyps, constipation History: Reports: Other Problems/Disorders - overactive bladder, bladder infection, UTI, Urosepsis Musculoskeletal History: Reports: Hx Arthritis, Hx Back Problems, Hx Osteoporosis, Other Musculoskeletal History - sciatica Sensory History: Reports: Hx Contacts or Glasses - glasses Denies: Hx Hearing Aid Opthamlomology History: Reports: Hx Contacts or Glasses - glasses Neurological History: Reports: Hx Nerve Disease - SCIATICA Psychiatric History: Reports: Hx Anxiety Denies: Hx Panic Disorder - Cancer History Cancer Type, Location and Year: THYROID 2010 Hx Chemotherapy: Yes Hx Radiation Therapy: Yes - Surgical History Surgery Procedure, Year, and Place: HYSTERECTOMY, THYROID, HAND SURGERY ( FORGETS WHICH HAND) Hx Anesthesia Reactions: No Infectious Disease History: No Infectious Disease History: Denies: Traveled Outside the [place] in Last 30 Days - Family History Known Family History: Positive: Other - no FHx of breast cancer - Social History Occupation: Retired Lives: With Family Alcohol Use: None Substance Use Type: Reports: None Smoking Status (MU): Never Smoked Tobacco Review of Systems Constitutional: Other - Positive: weakness, dizziness Positive: Fatigue Negative: Diplopia ENT: Negative - Neck pain Negative: Sore Throat Positive: Palpitations, Chest Pain Negative: Shortness Of Breath Positive: Other - Positive: Acid Reflux . Negative: Abdominal Pain Negative: dysuria Positive: Edema - Pedal Negative: Rash, Bruising Positive: Headache, Syncope Positive: Anxious - Severe All Other Systems Reviewed And Are Negative: No Physical Exam - Summary Physical Exam Summary: Appearance: Alert, conversive, nontoxic appearing Skin: Warm, dry, no mottling, no rashes, no contusions HEENT: EOMI, PERRL, moist mucous membranes Neck: No masses on the neck, supple Respiratory: Clear to auscultation, breath sounds present, no rales, no rhonchi , no wheezes Cardiovascular: RRR, pulses are symmetrical in both lower and upper extremities Abdomen: Soft, non-tender Bowel Sounds: Present Musculoskeletal: No CVA tenderness, no obvious deformity, moving all extremities in a grossly normal manner Neurological: A&Ox3, CN II-XII Intact, moving all extremities symmetrically Psychiatric: Normal affect and mood Triage Information Reviewed: Yes Vital Signs On Initial Exam: Initial Vitals Temp Pulse Resp BP Pulse Ox 97.5 F 50 14 163/73 98 06/17/18 16:57 06/17/18 16:57 06/17/18 16:57 06/17/18 16:57 06/17/18 16:57 Vital Signs Reviewed: Yes Diagnostics - Vital Signs Vital Signs Temp Pulse Resp BP Pulse Ox 06/17/18 18:08 45 14 148/76 97 06/17/18 18:00 48 14 97 06/17/18 17:39 48 98 06/17/18 17:38 46 151/79 97 06/17/18 16:57 97.5 F 50 14 163/73 98 - Laboratory Lab Results: Lab Results 06/17/18 06/17/18 06/17/18 Range/Units 18:15 18:15 18:15 WBC 5.8 (3.5-10.8) 10^3/ul RBC 4.27 (4.00-5.40) 10^6/ul Hgb 12.6 (12.0-16.0) g/dl Hct 38 (35-47) % MCV 89 (80-97) fL MCH 30 (27-31) pg MCHC 33 (31-36) g/dl RDW 14 (10.5-15) % Plt Count 205 (150-450) 10^3/ul MPV 7.3 L (7.4-10.4) um3 Neut % (Auto) 70.4 (38-83) % Lymph % (Auto) 20.6 L (25-47) % [place] % (Auto) 6.7 (0-7) % Eos % (Auto) 1.7 (0-6) % Baso % (Auto) 0.6 (0-2) % Absolute Neuts (auto) 4.1 (1.5-7.7) 10^3/ul Absolute Lymphs (auto) 1.2 (1.0-4.8) 10^3/ul Absolute Monos (auto) 0.4 (0-0.8) 10^3/ul Absolute Eos (auto) 0.1 (0-0.6) 10^3/ul Absolute Basos (auto) 0 (0-0.2) 10^3/ul Absolute Nucleated RBC 0 10^3/ul Nucleated RBC % 0 Sodium 137 (135-145) mmol/L Potassium 4.4 (3.5-5.0) mmol/L Chloride 103 (101-111) mmol/L Carbon Dioxide 29 (22-32) mmol/L Anion Gap 5 (2-11) mmol/L BUN 23 (6-24) mg/dL Creatinine 1.04 H (0.51-0.95) mg/dL Est GFR ( Amer) 62.3 (>60) Est GFR (Non-Af Amer) 51.5 (>60) BUN/Creatinine Ratio 22.1 H (8-20) Glucose 98 (70-100) mg/dL Calcium 9.4 (8.6-10.3) mg/dL Magnesium 2.0 (1.9-2.7) mg/dL Total Bilirubin 0.40 (0.2-1.0) mg/dL AST 17 (13-39) U/L ALT 18 (7-52) U/L Alkaline Phosphatase 67 (34-104) U/L Troponin I 0.03 (<0.04) ng/mL B-Natriuretic Peptide 177 H ( - 100) pg/mL Total Protein 6.2 L (6.4-8.9) g/dL Albumin 4.0 (3.2-5.2) g/dL Globulin 2.2 (2-4) g/dL Albumin/Globulin Ratio 1.8 (1-3) TSH Pending Result Diagrams: 06/17/18 18:15 06/17/18 18:15 Lab Statement: Any lab studies that have been ordered have been reviewed, and results considered in the medical decision making process. - EKG 17:08 Cardiac Rate: Bradycardia - 49 bpm EKG Interpretation: Prolonged QRS, abnormal QTC, Inverted T waves at leads V2-V6 ,I and II EKG Comparison: Other - R axis deviation Chest Pain Course/Dx - Course Course Of Treatment: A 78 year-old F presents to the ED with a CC of CP for 6 weeks rated 6/10 in severity. The pain is described as stabbing/sharp and radiates to the shoulder. It is alleviated by a cold ice pack. The pt had a STEMI 1 week ago and visited the ED where she was given new medications not including Beta dipesh. She notes acid reflux, palpitations, weakness, fatigue, pedal edema, dizzy spells, mild BURGOS, one episode of syncope, and severe anxiety ( since her thyroid medications were changed). An EKG reveals prolonged QRS, abnormal QTC, inverted T waves at leads V2-V6, I and II and right axis deviation. In the ED course, pt was given Pantoprazole 40mg IV which improved the symptoms. A physical exam is normal. I discussed the pt's visit with Jailene Triana MD and the discharge plan and the chemical sprayer agrees with it. The patient will be discharged with a final Dx of Chest pain. The pt is agreeable with this plan. Allergies noted. - Diagnoses Provider Diagnoses: Chest pain - Provider Notifications Discussed Care Of Patient With: Jailene Berry - Clarity Developer Time Discussed With Above Provider: 21:06 Instructed by Provider To: Other - Discussed the pt's visit and the discharge plan and Dr. Berry agrees with it. Discharge - Sign-Out/Discharge Documenting (check all that apply): Patient Departure - DC - Discharge Plan Condition: Stable Disposition: HOME Patient Education Materials: Chest Pain (ED) Referrals: Jeniffer Johnston NP [Primary Care Provider] - 3 Days Additional Instructions: Follow up with your primary care physician. return if worse or any new symptoms. IT is important to take all medications as previously instructed. - Billing Disposition and Condition Condition: STABLE Disposition: Home - Attestation Statements Document Initiated by Tenzinibalycia: Yes Documenting Scribe: Mary Lou Lee Provider For Whom Steph is Documenting (Include Credential): Dr. Junie Nicole MD Scribe Attestation: Mary Lou Orozco scribed for Dr. Junie Nicole MD on 06/22/18 at 1135. Scribe Documentation Reviewed: Yes Provider Attestation: The documentation as recorded by the liseMary Lou accurately reflects the service I personally performed and the decisions made by , Dr. Junie Nicole MD
[2018-06-17 21:25] VITALS: BP 127/76
--- NOTE | 2018-06-18 08:43 | RAD ---
Indication: Chest pain. Recent myocardial infarction 2 weeks ago. Comparison: June 10, 2018 Technique: Upright AP 1842 hours Report: Suboptimal inspiration for this patient compared with the prior exam. Linear opacities at the lung bases are most suspicious for atelectasis. Negative for pleural effusion or pneumothorax. Mild cardiomegaly. Unremarkable central pulmonary vasculature and mediastinal contours. IMPRESSION: #. Stigmata of chronic obstructive pulmonary disease. Linear opacities at the lung bases are most suspicious for atelectasis. #. Cardiomegaly without evidence for pulmonary edema.
--- NOTE | 2018-06-21 12:05 | ED ---
Progress - Progress Note Progress Note: Patient's final radiology read for chest x-ray reveals "impression: 1. Stigmata of chronic obstructive pulmonary disease. Linear opacities at the lung bases are most suspicious for atelectasis. 2. Cardiomegaly without evidence for pulmonary edema". Dr. Nicole saw this patient for chest pain. She discussed the case with Dr. Jailene Berry and patient was discharged home for follow-up with PCP. These findings do not appear acute in the sense that they would change the patient's emergent care plan at this point in time. No further action. Course/Dx - Course Course Of Treatment: A 78 year-old F presents to the ED with a CC of CP for 6 weeks rated 6/10 in severity. The pain is described as stabbing/sharp and radiates to the shoulder. It is alleviated by a cold ice pack. The pt had a STEMI 1 week ago and visited the ED where she was given new medications not including Beta dipesh. She notes acid reflux, palpitations, weakness, fatigue, pedal edema, dizzy spells, mild BURGOS, one episode of syncope, and severe anxiety ( since her thyroid medications were changed). An EKG reveals prolonged QRS, abnormal QTC, inverted T waves at leads V2-V6, I and II and right axis deviation. In the ED course, pt was given Pantoprazole 40mg IV which improved the symptoms. A physical exam is normal. I discussed the pt's visit with Jailene Triana MD and the discharge plan and the atomic welder agrees with it. The patient will be discharged with a final Dx of Chest pain. The pt is agreeable with this plan. Allergies noted. - Diagnoses Provider Diagnoses: Chest pain - Provider Notifications Time Discussed With Above Provider: 21:06 Instructed by Provider To: Other - Discussed the pt's visit and the discharge plan and Dr. Berry agrees with it. Discharge - Sign-Out/Discharge Documenting (check all that apply): Post-Discharge Follow Up - Discharge Plan Condition: Stable Disposition: HOME Patient Education Materials: Chest Pain (ED) Referrals: Jeniffer Johnston NP [Primary Care Provider] - 3 Days Additional Instructions: Follow up with your primary care physician. return if worse or any new symptoms. IT is important to take all medications as previously instructed. - Billing Disposition and Condition Condition: STABLE Disposition: Home
== END 2018-06-17 21:24 | disposition home or self-care (01) ==
LOC: ED 16:50
DX: R07.9 Chest pain, unspecified (principal); I25.2 Old myocardial infarction; K21.9 Gastro-esophageal reflux disease without esophagitis; R00.2 Palpitations; R53.1 Weakness; R53.83 Other fatigue; R60.9 Edema, unspecified; R42 Dizziness and giddiness; R51 Headache; R55 Syncope and collapse; F41.9 Anxiety disorder, unspecified; I51.7 Cardiomegaly
CPT/HCPCS: 36415; 71045; 80053; 83735; 83880; 84443; 84484; 85025; 93005; 96374; 99283

== ENCOUNTER 2018-07-05 19:50 | Emergency (ER) | payer MEDICARE ==
--- OUTSIDE RECORDS SUMMARY | 2018-07-05 21:04 | XMS REPORT ---
:1940 External Reference #:[id number] Author Organization [employer] Address [address] [place] [place] [address] Phone [phone] Care Team Providers Name Role Phone Fawn Santana MD Care Team Information Residential Glazier Unavailable Jeniffer Johnston NP Primary Care Physician Unavailable Payers Type Date Identification Numbers Payment Provider Subscriber Medicare Primary Policy Number: [id number] Medicare Angella Ruth PayID: [id number] [address] [place] [address] [facility] Part [facility] Policy Number: [id number] [facility] Angella Ruth Group Name: Medicare [id number] PayID: [id number] [place] [address] Problems Date Description Provider Status Onset: 07/20/2016 Displacement of lumbar intervertebral disc YOBANI Muñiz Active without myelopathy Family History Date Family Member(s) Problem(s) Comments General Cancer Father Coronary Artery Disease (CAD) Father due to Colon Cancer () - age 62 Father [place] Mother Hypertension Mother due to Lung Cancer () - age 64 Mother [place] First Daughter Rheumatoid Arthritis Second Daughter Hypercholesterolemia First Brother Hypertension First Brother Hypercholesterolemia Second Brother Hypertension Second Brother Hypercholesterolemia Third Brother Hypertension Third Brother Rheumatoid Arthritis First Sister Arthritis First Sister [place] Social History Type Date Description Comments Marital Status Lives With Spouse 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 Cigarette Use Never Smoked Cigarettes ETOH Use Occasionally consumes alcohol Smoking Patient has never smoked Recreational Drug Use Denies Drug Use Daily Caffeine Consumes on average 1 cup of regular coffee per day Exercise Type/Frequency Exercises sporadically depending on the swelling/ Allergies, Adverse Reactions, Alerts Date Description Reaction Status Severity Comments 07/20/2016 NSAIDs active 07/20/2016 Sulfa Antibiotics active 04/14/2018 Macrobid Vomitting active Mild to Moderate 06/20/2018 Bactrim active Medications Medication Date Status Form Strength Qnty SIG Indications Ordering Provider Levothyroxine Sodium 06/20 Active Tablets 50mcg 30tab Take Mcfadden s 50mcg PO MD Macy daily on empty stomach Eliquis 05/11 Active Tablets 5mg 180ta 1 by Jose Jackson /2017 bs mouth Cai, twice a DO day Polyethylene Glycol Active Powder 3350NF 1 heaping Unknown 3350 /0000 tsp 1-2 times daily Oxybutynin Chloride Active Tablets 5mg Take 1 Unknown /0000 Tablet By Mouth Twice A Day Triamcinolone Active Cream 0.1% Apply To Unknown Acetonide /0000 Rash On Legs Daily. Alprazolam Active Tablets 0.25mg 1 tab 3 Unknown /0000 times a day as needed Align Active Capsules 4mg 1 by Unknown /0000 mouth every day as directed Metoprolol Tartrate Active Tablets 12.5mg 12.5mg Unknown /0000 daily Lisinopril Active Tablets 5mg 1 by Unknown /0000 mouth every day Amiodarone HCL Active Tablets 200mg 1 by Unknown /0000 mouth daily Gabapentin Hx Capsules 100mg Unknown / - 03/25 Prednisone Hx Tablets 10mg Unknown / - 03/25 Tramadol HCL Hx Tablets 50mg Unknown / - 03/25 Diazepam Hx Tablets 5mg Unknown / - 03/25 Ondansetron Hx Tablets 4mg Unknown /0000 Dispers - 03/25 Amlodipine Besylate Hx Tablets 5mg Unknown / - 03/25 Cyclobenzaprine HCL Hx Tablets 5mg Take 1-2 Unknown /0000 Tablets - By Mouth 03/25 Daily as Directed Tizanidine HCL Hx Tablets 2mg Unknown / - 03/25 Levothyroxine Sodium Hx Tablets 25mcg Take 1 Unknown /0000 Tablet By - Mouth 06/20 Hydrochlorothiazide Hx Tablets 25mg Take 1/2 Unknown /0000 Tablet By - Mouth 05/10 Once /2017 Daily For Blood Pressure Atenolol 00 Hx Tablets 25mg 1 daily Unknown /0000 - 06/19 Lisinopril-Hydrochlo 00 Hx Tablets 10-12.5mg Take Unknown rothiazide /0000 Tablet By - Mouth 06/19 Every Day Medications Administered in Office Medication Date Status Form Strength Qnty SIG Indications Ordering Provider Inj, Administered Injection Jose S. Regadenoson, 018 Cai, DO 0.1 MG FACC Technetium TC Administered Injection Jose S. 99M 018 Cai, DO Tetrofosmin, FACC Per Unit Dose Up To 40 Millicuries Vital Signs Date Vital Result Comment 06/20/2018 Height 69 inches 5'9" Weight 152.00 lb Heart Rate 52 /min BP Systolic Sitting 142 mmHg BP Diastolic Sitting 73 mmHg BMI (Body Mass Index) 22.4 kg/m2 05/18/2018 Height 70 inches 5'10" Weight 149.00 [...] Information Procedures Date CPT Code Description Status 06/12/2018 20840 ECHO Transthorasic Realtime 2D W Doppler & Color Flow Completed Hosp 05/19/2018 24327 Dest Lesion Each Addl Lesion 2 Through 14 Each Completed 05/19/2018 72114 Destruction ALL Benign Or Premalignant Lesion (Other Completed Than [place]ag 05/18/2018 67655 EKG Tracing & Interpretation Completed 05/11/2018 15017 Stress Test Completed 05/11/2018 47334 Myocardial Perfusion Imaging Tomographic (Spect) Completed Multiple Studies 05/10/2018 77066 ECHO Transthoracic, Real-Time 2D With Doppler And Color Completed Flow 05/10/2018 87488 ECHO Transthoracic, Real-Time 2D With Doppler And Color Completed Flow 04/26/2018 41872 EKG Tracing & Interpretation Completed 04/05/2018 76235 Destruction Of Lesions 15+ Completed 08/14/2008 06907 EKG, Interpretation Only Completed Encounters Type Date Location Provider CPT E/M Dx Office Visit 05/19/2018 11:30a [facility] [address] I87.2 L57.0 Office Visit 05/18/2018 10:30a [facility], [address] I48.0 [facility] I10 Office Visit 04/26/2018 10:40a [facility], 8[address] R06.02 [facility] R94.31 I49.3 Office Visit 04/19/2018 10:40a [facility] [place] [address] L57.0 R60.0 Office Visit 04/05/2018 4:10p [facility] [place] [address] R60.0 Z08 Z85.828 L57.0 Office Visit 07/20/2016 10:00a [facility] Cadence Montez PA-C 37677 M51.26 Of [facility] Office Visit 07/18/2016 11:10a [facility] Jadyn Jackson, [employer]PER[employer] 74117 M54.9 [facility] E89.0 M51.26 N32.81 Office Visit 07/17/2016 11:09a [facility] Andrew Shen, 56542 M54.9 [facility]oc[facility] [place] Hospitalists E89.0 M51.26 N32.81 Plan of Care Future Appointment(s):07/25/2018 11:10 am - Tony Vaughan MD at [facility] Xwisfsxvjio79/27/2018 - Bogdan Cavazos MDE05.40 Thyrotoxicosis factitia without thyrotoxic crisis or stormInstructions:1. Change levothyroxine to 50mcg daily. 2. Recheck blood tests in 3 weeks (orders placed). 3. Your goal TSH is 1.0 - 2.5.E89.0 Postprocedural mcndbvcrivawadT01.0 Paroxysmal atrial fibrillationInstructions:1. Reduce metoprolol to 12.5mg daily. 2. Discussion discontinuation of metoprolol with Dr. Cai.
--- OUTSIDE RECORDS SUMMARY | 2018-07-05 21:04 | XMS REPORT ---
:1940 External Reference #:[id number] Author Organization [employer] Address [address] [place] [address] Phone [phone] Care Team Providers Name Role Phone Fawn Santana MD Care Team Information Fish Filleter Unavailable Jeniffer Johnston NP Primary Care Physician Unavailable Payers Type Date Identification Numbers Payment Provider Subscriber Medicare Primary Policy Number: [id number] Medicare Angella Ruth PayID: [id number] [address] [place] [address] [facility] Part B Policy Number: [id number] [facility] Angella Ruth Group Name: Medicare [address] PayID: [id number] [place] [address] Problems Date Description Provider Status Onset: 07/20/2016 Displacement of lumbar intervertebral disc YOBANI Muñiz Active without myelopathy Family History Date Family Member(s) Problem(s) Comments General Cancer Father Coronary Artery Disease (CAD) Father due to Colon Cancer () - age 62 Father [place] Mother Hypertension Mother due to Lung Cancer () - age 64 Mother [place] First Daughter Rheumatoid Arthritis Second Daughter Hypercholesterolemia First Brother Hypertension First Brother Hypercholesterolemia Second Brother Hypertension Second Brother Hypercholesterolemia Third Brother Hypertension Third Brother Rheumatoid Arthritis First Sister Arthritis First Sister [place] Social History Type Date Description Comments Marital [...] Form Strength Qnty SIG Indications Ordering Provider Amiodarone HCL 06/21 Active Tablets 100mg 90tab 1 by Jose Jackson s mouth Cai, every day DO FACC Metoprolol Succinate 06/21 Active Tablets 25mg 90tab Take one Jose Jackson ER 24HR s tablet Cai, daily DO FACC Levothyroxine Sodium 06/20 Active Tablets 50mcg 30tab Take Mcfadden s 50mcg PO MD Macy daily on empty stomach Eliquis 05/11 Active Tablets 5mg 180ta 1 by Jose Jackson bs mouth Trell, twice a DO FAC day Polyethylene Glycol Active Powder 3350NF 1 [...] Unknown /0000 mouth every day as directed Lisinopril Active Tablets 5mg 1 by Unknown /0000 mouth every day Gabapentin Hx Capsules 100mg Unknown / - [...] /0000 Tablets - By Mouth 03/25 Daily Directed Tizanidine HCL Hx Tablets 2mg Unknown / - 03/25 Levothyroxine Sodium Hx Tablets 25mcg Take 1 Unknown /0000 Tablet By - Mouth 06/20 Hydrochlorothiazide Hx Tablets 25mg Take 1/2 Unknown /0000 Tablet By - Mouth 05/10 Once Daily For Blood Pressure Atenolol 00 Hx Tablets 25mg 1 daily Unknown /0000 - 06/19 Lisinopril-Hydrochlo 00 Hx Tablets 10-12.5mg Take 1 /2 Unknown rothiazide /0000 Tablet By - Mouth 06/19 Every Metoprolol Tartrate Hx Tablets 12.5mg 1 tab by Unknown /0000 mouth - once 06/21 Amiodarone HCL Hx Tablets 200mg 1 by Unknown /0000 mouth - daily 06/21 Medications Administered in Office Medication Date Status Form Strength Qnty SIG Indications Ordering Provider Inj, Administered Injection Jose S. Regadenoson, 018 Cai, DO 0.1 MG FACC Technetium TC Administered Injection Jose S. 99M 018 Cai, DO Tetrofosmin, FACC Per Unit Dose Up To 40 Millicuries Vital Signs Date Vital Result Comment 06/21/2018 Height 69 inches 5'9" Weight 152.00 lb Heart Rate 54 /min BP Systolic Sitting 132 mmHg Lue reg cuff BP Diastolic Sitting 82 mmHg Lue reg cuff BP Systolic Standing 130 mmHg Lue reg cuff BP Diastolic Standing 80 mmHg Lue reg cuff BMI (Body Mass Index) 22.4 kg/m2 Ejection Fraction 35-40% Echo 06/12/18 06/20/2018 Height 69 inches 5'9" Weight 152.00 [...] Information Procedures Date CPT Code Description Status 06/21/2018 22520 EKG Tracing & Interpretation Completed 06/13/2018 63291 Cath PLMT&NJX L Ventriculog Img S&I Completed 06/12/2018 14394 ECHO Transthorasic Realtime 2D W Doppler & Color Flow Completed Hosp 05/19/2018 21989 Dest Lesion Each Addl Lesion 2 Through 14 Each Completed 05/19/2018 69923 Destruction ALL Benign Or Premalignant Lesion (Other Completed Than [place] 05/18/2018 27672 EKG Tracing & Interpretation Completed 05/11/2018 55693 Stress Test Completed 05/11/2018 06642 Myocardial Perfusion Imaging Tomographic (Spect) Completed Multiple Studies 05/10/2018 06586 ECHO Transthoracic, Real-Time 2D With Doppler And Color Completed Flow 05/10/2018 18617 ECHO Transthoracic, Real-Time 2D With Doppler And Color Completed Flow 04/26/2018 81654 EKG Tracing & Interpretation Completed 04/05/2018 12329 Destruction Of Lesions 15+ Completed 08/14/2008 64478 EKG, Interpretation Only Completed Encounters Type Date Location Provider CPT E/M Dx Office Visit 05/19/2018 11:30a [facility] [place] [address] I87.2 L57.0 Office Visit 05/18/2018 10:30a [facility] [place] [address] I48.0 [facility] FACC I10 Office Visit 04/26/2018 10:40a [facility] [place] [address] R06.02 [facility] FACC R94.31 I49.3 Office Visit 04/19/2018 10:40a [facility] [place] [address] L57.0 R60.0 Office Visit 04/05/2018 4:10p [facility] [place] [address] R60.0 Z08 Z85.828 L57.0 Office Visit 07/20/2016 10:00a [facility] Services Cadence Montez PA-C 16821 M51.26 Of [facility] Office Visit 07/18/2016 11:10a [facility] [place] [address] M54.9 Assoc,[facility] Hospitalists E89.0 M51.26 N32.81 Office Visit 07/17/2016 11:09a [facility] Andrew Shen, [address] M54.9 Assoc,pc [place] Hospitalists E89.0 M51.26 N32.81 Plan of Care Future Appointment(s):07/27/2018 4:00 pm - Jose Cai DO FACC at [facility]07/25/2018 3:45 pm - Traveling ECHO 1 at [facility]07/14/2018 4:00 pm - Bogdan Cavazos MD at [facility]07/25/2018 11:10 am - Tony Vaughan MD at [facility] Zgxiljljoip83/28/2018 - Jose Cai DO FACCI48.0 Paroxysmal atrial fibrillationComments:Decrease amiodarone from 200 mg to 100 mg once a day.Stop taking short acting metoprolol tartrate and start taking long acting metorpolol succinate 25 mg once a day.Follow up:f/u early July with limited echo prior to visit and ekg that visit.I51.81 Takotsubo zodqrbqcN12.9 Cardiomyopathy, unspecifiedNew Orders: Echocardiogram, Limited Study
[2018-07-05 21:06] VITALS: BP 155/89
--- NOTE | 2018-07-05 21:15 | UC ---
General HPI - HPI Summary HPI Summary: 78 yo female c/o frequency / urgency / dysuria since early evening tonight. No fever / chills. No cough / sob / cp. No abd pain except lower mid pelvic pain c/w bladder. Did note lower mid back pain yesterday, not flank. Has has several urine infections in the past, has been seen by urologist in [place], but no issues noted. Most recent uti May (cx neg) and April (+ E coli) and February (+ e coli). Last month took 3 days ciprofloxacin which helped. Avoids pyridium d/ t possible allergy but not sure if pyridium or bactrim. Last month sign pmh - + heart atteck, takosubo synd. Now takes amiodarone. - History of Current Complaint Chief Complaint: UCGU Stated Complaint: FREQUENT URINATION Time Seen by Provider: 07/05/18 21:11 Hx Obtained From: Patient, Family/Skein Winding Operator Hx Last Menstrual Period: hysterectomy Pain Intensity: 8 - Allergy/Home Medications Allergies/Adverse Reactions: Allergies Allergy/AdvReac Type Severity Reaction Status Date / Time Sulfa (Sulfonamide Allergy Nausea And Verified 06/17/18 17:00 Antibiotics) Vomiting sulfamethoxazole Allergy Vomiting Verified 07/05/18 21:07 [From Bactrim] trimethoprim [From Bactrim] Allergy Vomiting Verified 07/05/18 21:07 Home Medications: Home Medications Amiodarone TAB* [Cordarone Tab*] 100 mg PO 0900,2100 07/05/18 [History] PMH/Surg Hx/FS Hx/Imm Hx Previously Healthy: No - see hpi - Surgical History Surgical History: Yes Surgery Procedure, Year, and Place: HYSTERECTOMY, THYROID, HAND SURGERY ( FORGETS WHICH HAND) - Family History Known Family History: Positive: Other - no FHx of breast cancer - Social History Alcohol Use: Occasionally Substance Use Type: None Smoking Status (MU): Never Smoked Tobacco - Immunization History Most Recent Influenza Vaccination: up to date Most Recent Tetanus Shot: unk Most Recent Pneumonia Vaccination: up to date Review of Systems Constitutional: Fatigue Skin: Negative Eyes: Negative ENT: Negative Respiratory: Negative Cardiovascular: Negative Gastrointestinal: Negative Genitourinary: Other - see hpi Motor: Negative Neurovascular: Negative Musculoskeletal: Negative Neurological: Negative Psychological: Negative Is Patient Immunocompromised?: No All Other Systems Reviewed And Are Negative: Yes Physical Exam Triage Information Reviewed: Yes Appearance: Well-Nourished - sitting up. nad. Nontoxic appearance. Vital Signs: Initial Vital Signs Temp 98.3 F 07/05/18 20:59 Pulse 63 07/05/18 20:59 Resp 16 07/05/18 20:59 BP 155/89 07/05/18 20:59 Pulse Ox 100 07/05/18 20:59 Vital Signs Reviewed: Yes Eye Exam: Normal ENT Exam: Normal Respiratory Exam: Normal Respiratory: Positive: Chest non-tender, Lungs clear, Normal breath sounds, No respiratory distress Cardiovascular Exam: Other - HR regular + s1 split. HR correlates with L radial pulse. good general color Abdominal Exam: Other - soft nd. nontender except lower mid abd / pelvis (c/w bladder). No r/g. No cvat. + subj tender mid low back, well below cva. Musculoskeletal Exam: Normal - grossly normal. gait steady. Neurological Exam: Normal - grossly nonfocal Psychological Exam: Normal - conversing easily and appropriately Skin Exam: Normal - no visible or reported rash. Course/Dx - Course Course Of Treatment: Reviewed urine dip. Cx sent. Reviewed coa / tx plan with pt and family member. Questions as posed answered to the best of my ability. - Differential Dx - Multi-Symptom Provider Diagnoses: Cystitis / uti Discharge - Sign-Out/Discharge Documenting (check all that apply): Patient Departure All imaging exams completed and their final reports reviewed: No Studies - Discharge Plan Condition: Stable Disposition: HOME Prescriptions: ceFUROXime TAB(*) [Ceftin TAB 250 MG(*)] 500 mg PO BID #14 tab Patient Education Materials: Hematuria (ED), Urinary Tract Infection in Older Adults (ED) Referrals: Jeniffer Johnston DRUM DRIER [Primary Care Provider] - Additional Instructions: Drink plenty of water. Follow up with your primary care physician, in approximately 2 weeks for recheck. Seek medical attention for worse or new problems in the meantime. - Billing Disposition and Condition Condition: STABLE Disposition: Home
[2018-07-05] MEDS ORDERED: Cephalexin CAP* 500 MG PO ONE (21:56)
[2018-07-05] MEDS ORDERED: Cephalexin CAP* 500 MG ONE (22:08)
== END 2018-07-05 22:24 | disposition home or self-care (01) ==
LOC: UCEAST 19:50
DX: N30.90 Cystitis, unspecified without hematuria (principal); Z87.440 Personal history of urinary (tract) infections; Z88.2 Allergy status to sulfonamides
CPT/HCPCS: 81003; 87077; 87086; 87186; 99212; A9270-GY; G0463

== ENCOUNTER 2019-06-03 19:54 | Emergency (ER) | payer MEDICARE ==
--- NOTE | 2019-06-03 20:23 | UC ---
Complaint Female HPI - HPI Summary HPI Summary: 79-year-old woman comes in with a chief complaint of UTI symptoms. Yesterday started with some bilateral flank pain and dysuria and urinary frequency. No fevers. Does have some chills. Does get some suprapubic pain with urination. - History Of Current Complaint Chief Complaint: UCGU Stated Complaint: POSS UTI Time Seen by Provider: 06/03/19 20:19 Hx Last Menstrual Period: hysterectomy Pain Intensity: 3 - Allergies/Home Medications Allergies/Adverse Reactions: Allergies Allergy/AdvReac Type Severity Reaction Status Date / Time latex Allergy Rash Verified 06/03/19 20:15 Sulfa (Sulfonamide Allergy Nausea And Verified 06/03/19 20:15 Antibiotics) Vomiting sulfamethoxazole Allergy Vomiting Verified 06/03/19 20:15 [From Bactrim] trimethoprim [From Bactrim] Allergy Vomiting Verified 06/03/19 20:15 naproxen AdvReac Severe Vomiting Verified 06/03/19 20:15 nitrofurantoin AdvReac Severe Vomiting Verified 06/03/19 20:15 [From Macrobid] Home Medications: Home Medications Dronedarone TAB* [Multaq TAB*] 400 mg PO BID 06/03/19 [History Confirmed ] Levothyroxine TAB* [Synthroid 25 MCG TAB*] 75 mcg PO DAILY@0600 06/03/19 [ History Confirmed 06/03/19] Metoprolol Succinate XL TAB* [Toprol XL TAB*] 25 mg PO DAILY 06/03/19 [History Confirmed 06/03/19] PMH/Surg Hx/FS Hx/Imm Hx Previously Healthy: Yes Endocrine History: Hypothyroidism, Dyslipidemia Cardiovascular History: Hypertension - Surgical History Surgical History: Yes Surgery Procedure, Year, and Place: HYSTERECTOMY, THYROIDECTOMY, HAND SURGERY ( FORGETS WHICH HAND) - Family History Known Family History: Positive: Other - no FHx of breast cancer - Social History Alcohol Use: Occasionally Substance Use Type: None Smoking Status (MU): Never Smoked Tobacco - Immunization History Most Recent Influenza Vaccination: up to date Most Recent Tetanus Shot: unk Most Recent Pneumonia Vaccination: up to date Review of Systems All Other Systems Reviewed And Are Negative: Yes Constitutional: Positive: Negative Skin: Positive: Negative Eyes: Positive: Negative ENT: Positive: Negative Respiratory: Positive: Negative Cardiovascular: Positive: Negative Gastrointestinal: Positive: Other - SEE HPI Genitourinary: Positive: Dysuria, Frequency, Urgency Motor: Positive: Negative Neurovascular: Positive: Negative Musculoskeletal: Positive: Other: - SEE HPI Neurological: Positive: Negative Psychological: Positive: Negative Is Patient Immunocompromised?: No Physical Exam Triage Information Reviewed: Yes Appearance: Well-Appearing, No Pain Distress, Well-Nourished Vital Signs: Initial Vital Signs Temp 96.9 F 06/03/19 20:10 Pulse 62 06/03/19 20:10 Resp 16 06/03/19 20:10 Pulse Ox 98 06/03/19 20:10 Vital Signs Reviewed: Yes Eye Exam: Normal Eyes: Positive: Conjunctiva Clear Neck: Positive: Supple Respiratory: Positive: Lungs clear, Normal breath sounds, No respiratory distress Cardiovascular: Positive: RRR Abdomen Description: Positive: CVA Tenderness (R), CVA Tenderness (L) Bowel Sounds: Positive: Present Musculoskeletal: Positive: Strength Intact, ROM Intact Neurological: Positive: Alert Psychological: Positive: Normal Response To Family, Age Appropriate Behavior Skin Exam: Normal Complaint Female Dx - Differential Dx/Diagnosis Provider Diagnosis: UTI (urinary tract infection) Discharge - Sign-Out/Discharge Documenting (check all that apply): Patient Departure All imaging exams completed and their final reports reviewed: No Studies - Discharge Plan Condition: Stable Disposition: HOME Prescriptions: Cephalexin CAP* [Keflex CAP*] 500 mg PO TID #19 cap Patient Education Materials: Urinary Tract Infection in Women (ED) Referrals: Jeniffer Johnston, HEEL PACKER [Primary Care Provider] - Additional Instructions: FOLLOW UP WITH YOUR DOCTOR IF NOT COMPLETELY IMPROVED. GET RECHECKED SOONER IF YOUR CONDITION WORSENS OR ANY QUESTIONS OR CONCERNS. - Billing Disposition and Condition Condition: STABLE Disposition: Home
[2019-06-03 20:24] VITALS: BP 148/72
[2019-06-03] MEDS ORDERED: Cephalexin CAP* 500 MG PO ONE (20:46)
== END 2019-06-03 21:46 | disposition home or self-care (01) ==
LOC: UCEAST 19:54
DX: N39.0 Urinary tract infection, site not specified (principal); E03.9 Hypothyroidism, unspecified; E78.5 Hyperlipidemia, unspecified; I10 Essential (primary) hypertension; Z88.2 Allergy status to sulfonamides; Z91.040 Latex allergy status
CPT/HCPCS: 81002; 87077; 87086; 87184; 87186; 99213; A9270-GY; G0463

== ENCOUNTER 2019-07-17 10:19 | Emergency (ER) | payer MEDICARE ==
--- OUTSIDE RECORDS SUMMARY | 2019-07-17 10:54 | XMS REPORT | Continuity of Care Document ---
:1940 External Reference #:[id number] Author Name Jose Cai, DO FACC (transmitted by agent of provider Cinthia Maki) Address 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 [phone] Problems Active Problems Provider Date Displacement of lumbar intervertebral disc Cadence Montez PA-C Onset: 2015 without myelopathy Chest pain Jaden Aquino N.PJamel Onset: 06/10/2018 Syncope and collapse Jaden Aquino N.PJamel Onset: 06/10/2018 Atrial fibrillation Jaden Aquino N.Eddie Onset: 06/10/2018 Essential hypertension Jadyn Jackson NP Onset: 06/11/2018 Acute subendocardial infarction Jadyn Jackson NP Onset: 06/12/2018 Anxiety state Jadyn Jackson NP Onset: 06/12/2018 Paroxysmal atrial fibrillation MELITON Wetzel Onset: 06/14/2018 Social History Type Date Description Comments Sex Unknown Tobacco Use Start: Unknown Never Smoked Cigarettes Smoking Status Reviewed: 07/04/19 Never Smoked Cigarettes ETOH Use Occasionally consumes alcohol Tobacco Use Start: Unknown Patient has never smoked Recreational Drug Use Denies Drug Use Exercise Type/Frequency Exercises sporadically depending on the swelling/ Allergies, Adverse Reactions, Alerts Active Allergies Reaction Severity Comments Date NSAIDs 07/20/2016 Sulfa Antibiotics 07/20/2016 Macrobid Vomitting Moderate 04/14/2018 Bactrim 06/20/2018 Medications Active Medications SIG Qnty Indications Ordering Date Provider Lisinopril-Hydrochloro 1/2 by mouth 45tabs I10 Jose Cai, 07/04/2019 thiazide every day DO FACC 10-12.5mg Tablets Multaq 1 by mouth twice 180tabs I48.0 Jose Cai, 04/26/2019 400mg Tablets a day with food DO [facility] Levothyroxine Sodium take 75mcg once 90tabs Bogdan Cavazos MD 08/02/2018 daily on an 75mcg Tablets empty stomach, except Wednesday, 6 doses/week total, do not take with calcium Metoprolol Succinate take one tablet 90tabs Jose Cai, 06/21/2018 ER daily DO FACC 25mg Tablets ER 24HR Eliquis 1 by mouth twice 180tabs Jose Cai, 05/11/2018 5mg Tablets a day DO FACC Polyethylene Glycol 1 heaping tsp Unknown 3350 1-2 times daily 3350NF Powder Oxybutynin Chloride Take 1 Tablet By Unknown 5mg Mouth Twice A Tablets Day Alprazolam 1 tab 3 times a Unknown 0.25mg Tablets day as needed(pt takes 1/2 tablet 3 times daily) Align 1 by mouth every Unknown 4mg Capsules day as directed Clobetasol Propionate apply to skin Unknown E twice a day as 0.05% Cream directed prn Sertraline HCL 1 by mouth every Unknown 25mg day Tablets History Medications Keflex take 1 tab by mouth 21caps Jose Cai, 06/05/2019 - 500mg Capsules 3 times a day x 7 DO FACC 07/03/2019 days until finished. Hydroxyzine HCL 1 by mouth 3 times Unknown 01/06/2019 - 10mg a day 04/24/2019 Tablets Medications Administered in Office Medication SIG Qnty Indications Ordering Provider Date Inj, Regadenoson, 0.1 MG Jose Cai, DO [facility] 05/11/2018 Injection Technetium TC 99M Jose Cai, DO [facility] 05/11/2018 Tetrofosmin, Per Unit Dose Up To 40 Millicuries Injection Immunizations Description No Information Available Vital Signs Date Vital Result Comment 07/04/2019 9:52am Height 69 inches 5'9" Weight 156.00 lb with shoes Heart Rate 72 /min BP Systolic Sitting 150 mmHg lue reg cuff BP Diastolic Sitting 84 mmHg lue reg cuff BP Systolic Standing 160 mmHg lue reg cuff BP Diastolic Standing 84 mmHg lue reg cuff Respiratory Rate 14 /min BMI (Body Mass Index) 23.0 kg/m2 Ejection Fraction 50% echo. 07/25/18 06/05/2019 4:02pm Height 69 inches 5'9" Weight 156.00 lb with shoes BP Systolic Sitting 122 mmHg Lue reg cuff BP Diastolic Sitting 78 mmHg Lue reg cuff BP Systolic Standing 122 mmHg Lue reg cuff BP Diastolic Standing 72 mmHg Lue reg cuff Respiratory Rate 13 /min BMI (Body Mass Index) 23.0 kg/m2 Ejection Fraction 50% Results Test Date Facility Test Result H/L Range Note Comp Metabolic 05/30/2019 [facility] Sodium 138 mmol/L Normal 135-[address] [place] [address] [phone] Potassium 4.5 mmol/L Normal 3.5-5.0 Chloride 105 mmol/L Normal 101-111 Co2 Carbon Dioxide 27 mmol/L Normal 22-32 Anion Gap 6 mmol/L Normal 2-11 Glucose 82 mg/dL Normal 70-100 Blood Urea Nitrogen 17 mg/dL Normal 6-24 Creatinine 1.10 mg/dL High 0.51-0.95 BUN/Creatinine Ratio 15.5 Normal 8-20 Calcium 8.7 mg/dL Normal 8.6-10.3 Total Protein 6.1 g/dL Low 6.4-8.9 Albumin 4.1 g/dL Normal 3.2-5.2 Globulin 2.0 g/dL Normal 2-4 Albumin/Globulin Ratio 2.1 Normal 1-3 Total Bilirubin 0.50 mg/dL Normal 0.2-1.0 Alkaline Phosphatase 61 U/L Normal 34-104 Alt 16 U/L Normal 7-52 Ast 18 U/L Normal 13-39 Egfr Non- 48.2 >60 Egfr 58.3 >60 1 Laboratory test 05/30/2019 [facility] Magnesium 2.0 mg/dL Normal 1.9-2.[address] [place] [address] [phone] Laboratory test 04/25/2019 [facility] Free T4 (Free 0.80 Normal 0.61-1.[address] Thyroxine) ng/[place] [address] [phone] TSH (Thyroid Stim Horm) 3.64 mcIU/mL Normal 0.34-5.60 1 Because ethnic data is not always readily [...] 15-29 5 Kidney failure <15 (or dialysis) Procedures Date Code Description Status 06/27/2019 51123 Insertion, Subcutaneous Cardiac Rhythm Monitor Completed 06/05/2019 67022 EKG Tracing & Interpretation Completed 05/04/2019 59204 EKG Tracing & Interpretation Completed 04/26/2019 76648 EKG Tracing & Interpretation Completed Medical Devices Description No Information Available Encounters Type Date Location Provider Dx Diagnosis Office Visit 06/05/2019 [facility] Jose Cai, I48.0 Paroxysmal atrial 4:20p Of [employer] Developer DO FACC fibrillation R42 Dizziness and giddiness I51.81 Takotsubo syndrome E89.0 Postprocedural hypothyroidism I45.19 Other right bundle-branch block I87.2 Venous insufficiency (chronic) (peripheral) R00.1 Bradycardia, unspecified I10 Essential (primary) hypertension Office Visit 05/04/2019 4:00p [facility] Jose S. I48.0 Paroxysmal atrial Of [employer] Developer Cai, DO fibrillation FACC R42 Dizziness and giddiness I51.81 Takotsubo syndrome E89.0 Postprocedural hypothyroidism I45.19 Other right bundle-branch block I87.2 Venous insufficiency (chronic) (peripheral) F41.9 Anxiety disorder, unspecified R00.1 Bradycardia, unspecified I10 Essential (primary) hypertension Office Visit 04/26/2019 2:00p [facility] Jose SJamel I48.0 Paroxysmal atrial Of [employer] Developer Cai, DO fibrillation FACC R42 Dizziness and giddiness I51.81 Takotsubo syndrome E89.0 Postprocedural hypothyroidism I45.19 Other right bundle-branch block I87.2 Venous insufficiency (chronic) (peripheral) F41.9 Anxiety disorder, unspecified R00.1 Bradycardia, unspecified Office Visit 04/25/2019 [facility], E89.0 Postprocedural 12:40p Endocrinology of hypothyroidism [employer] Z85.850 Personal history of malignant neoplasm of thyroid I48.0 Paroxysmal atrial fibrillation Assessments Date Code Description Provider 07/04/2019 I48.0 Paroxysmal atrial fibrillation Jose Cai, DO FACC 07/04/2019 R00.1 Bradycardia, unspecified Jose Cai, DO FACC 07/04/2019 I10 Essential (primary) hypertension Jose Cai, DO FACC 06/27/2019 I48.91 Unspecified atrial fibrillation Jacky Johnson M.D. 06/21/2019 R42 Dizziness and giddiness Jose Cai, DO FACC 06/05/2019 I48.0 Paroxysmal atrial fibrillation Jose Cai, DO FACC 06/05/2019 R42 Dizziness and giddiness Josethee Cai, DO FACC 06/05/2019 I51.81 Takotsubo syndrome Jose Cai, DO FACC 06/05/2019 E89.0 Postprocedural hypothyroidism Jose Cai, DO FACC 06/05/2019 I45.19 Other right bundle-branch block Jose Cai, DO FACC 06/05/2019 I87.2 Venous insufficiency (chronic) Jose Cai, DO FACC (peripheral) 06/05/2019 R00.1 Bradycardia, unspecified Jose Cai, DO FACC 06/05/2019 I10 Essential (primary) hypertension Jose Cai, DO FACC 05/04/2019 I48.0 Paroxysmal atrial fibrillation Jose Cai, DO FACC 05/04/2019 R42 Dizziness and giddiness Jose Cai, DO FACC 05/04/2019 I51.81 Takotsubo syndrome Jose Cai, DO FACC 05/04/2019 E89.0 Postprocedural hypothyroidism Jose Cai, DO [facility] 05/04/2019 I45.19 Other right bundle-branch block Jose Cai, DO [facility] 05/04/2019 I87.2 Venous insufficiency (chronic) Jose Cai, DO FACC (peripheral) 05/04/2019 F41.9 Anxiety disorder, unspecified Jose Cai, DO [facility] 05/04/2019 R00.1 Bradycardia, unspecified Jose Cai, DO [facility] 05/04/2019 I10 Essential (primary) hypertension Jose Cai, DO [facility] 04/26/2019 I48.0 Paroxysmal atrial fibrillation Jose Cai, DO [facility] 04/26/2019 R42 Dizziness and giddiness Jose Cai, DO [facility] 04/26/2019 I51.81 Takotsubo syndrome Jose Cai, DO [facility] 04/26/2019 E89.0 Postprocedural hypothyroidism Jose Cai, DO [facility] 04/26/2019 I45.19 Other right bundle-branch block Jose Cai, DO [facility] 04/26/2019 I87.2 Venous insufficiency (chronic) Jose Cai, DO FAC (peripheral) 04/26/2019 F41.9 Anxiety disorder, unspecified Jose Cai, DO [facility] 04/26/2019 R00.1 Bradycardia, unspecified Jose Cai, DO [facility] 04/25/2019 E89.0 Postprocedural hypothyroidism Bogdan Cavazos MD 04/25/2019 Z85.850 Personal history of malignant neoplasm of Bogdan Cavazos MD thyroid 04/25/2019 I48.0 Paroxysmal atrial fibrillation Bogdan Cavazos MD Plan of Treatment Future Appointment(s):07/20/2019 9:40 am - Bogdan Cavazos MD at [facility]07/04/2019 - Jose Cai DO FACCI48.0 Paroxysmal atrial fibrillationFollow up:f/u 04/2020 with EKGR00.1 Bradycardia, [id number] Essential (primary) hypertensionNew Medication:Lisinopril- Hydrochlorothiazide 10-12.5 mg - 1/2 by mouth every day Functional Status Description No Information Available Mental Status Description No Information Available Referrals Description No Information Available
--- OUTSIDE RECORDS SUMMARY | 2019-07-17 10:54 | XMS REPORT | Continuity of Care Document ---
:1940 External Reference #:[id number] Author Name Jose Cai, DO FACC (transmitted by agent of provider Ludivina Krueger) Address 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 [phone] Problems Active Problems Provider Date Displacement of lumbar intervertebral disc Cadence oMntez PA-C Onset: 2015 without myelopathy Chest pain Jaden Aquino N.Eddie Onset: 06/10/2018 Syncope and collapse Jaden Aquino N.Eddie Onset: 06/10/2018 Atrial fibrillation Jaden Aquino NWili Onset: 06/10/2018 Essential hypertension Jadyn Jackson NP Onset: 06/11/2018 Acute subendocardial infarction Jadyn Jackson NP Onset: 06/12/2018 Anxiety state Jadyn Jackson NP Onset: 06/12/2018 Paroxysmal atrial fibrillation MELITON Wetzel Onset: 06/14/2018 Social History Type Date Description Comments Sex Unknown Tobacco Use Start: Unknown Never Smoked Cigarettes Smoking Status Reviewed: 06/05/19 Never Smoked Cigarettes ETOH Use Occasionally consumes alcohol Tobacco Use Start: Unknown Patient has never smoked Recreational Drug Use Denies Drug Use Exercise Type/Frequency Exercises sporadically depending on the swelling/ Allergies, Adverse Reactions, Alerts Active Allergies Reaction Severity Comments Date NSAIDs 07/20/2016 Sulfa Antibiotics 07/20/2016 Macrobid Vomitting Moderate 04/14/2018 Bactrim 06/20/2018 Medications Active Medications SIG Qnty Indications Ordering Date Provider Keflex take 1 tab by 21caps Jose Cai, 06/05/2019 500mg Capsules mouth 3 times a DO FACC day x 7 days until finished. Multaq 1 by mouth twice 180tabs I48.0 Jose Cai, 04/26/2019 400mg Tablets a day with food DO FACC Levothyroxine Sodium take 75mcg once 90tabs Bogdan [...] every Unknown 25mg day Tablets History Medications Hydroxyzine HCL 1 by mouth 3 times a Unknown 01/06/2019 - 04/24/2019 10mg Tablets day Medications Administered in Office Medication SIG Qnty Indications Ordering Provider Date Inj, Regadenoson, 0.1 MG Jose Cai DO [facility] 05/11/2018 Injection Technetium TC 99M Jose Cai, DO [facility] 05/11/2018 Tetrofosmin, Per Unit Dose Up To 40 Millicuries Injection Immunizations Description No Information Available Vital Signs Date Vital Result Comment 06/05/2019 4:02pm Height 69 inches 5'9" Weight 156.00 lb with shoes BP Systolic Sitting 122 mmHg Lue reg cuff BP Diastolic Sitting 78 mmHg Lue reg cuff BP Systolic Standing 122 mmHg Lue reg cuff BP Diastolic Standing 72 mmHg Lue reg cuff Respiratory Rate 13 /min BMI (Body Mass Index) 23.0 kg/m2 Ejection Fraction 50% 05/04/2019 4:08pm Height 69 inches 5'9" Weight 151.00 lb Heart Rate 64 /min BP Systolic Sitting 136 mmHg Lue reg cuff BP Diastolic Sitting 84 mmHg Lue reg cuff BP Systolic Standing 136 mmHg Lue BP Diastolic Standing 80 mmHg Lue Respiratory Rate 16 /min BMI (Body Mass Index) 22.3 kg/m2 Ejection Fraction 50% 07/25/18 Results Test Date Facility Test Result H/L Range Note Comp Metabolic 05/30/2019 [facility] Sodium 138 mmol/L Normal 135-[address] [place] [address] [phone] Potassium 4.5 mmol/L Normal 3.5-5.0 Chloride 105 [...] Egfr 58.3 >60 1 Laboratory test 05/30/2019 [facility] Magnesium 2.0 mg/dL Normal 1.9-2.7 [address] [place] [address] [phone] Laboratory test 04/25/2019 [facility] Free T4 (Free 0.80 Normal 0.61-1.12 finding [address] [facility] Thyroxine) ng/[place] [address] [phone] TSH (Thyroid Stim Horm) 3.64 mcIU/mL Normal [...] (or dialysis) Procedures Date Code Description Status 06/05/2019 93765 EKG Tracing & Interpretation Completed 05/04/2019 45211 EKG Tracing & Interpretation Completed 04/26/2019 97972 EKG Tracing & Interpretation Completed Medical Devices Description No Information Available Encounters Type Date Location Provider Dx Diagnosis Office Visit 05/04/2019 [facility] Jose Cai, I48.0 Paroxysmal atrial 4:00p Of [employer] BURGOS FACC fibrillation R42 Dizziness and giddiness I51.81 Takotsubo syndrome E89.0 Postprocedural hypothyroidism I45.19 Other right bundle-branch block I87.2 Venous insufficiency (chronic) (peripheral) F41.9 Anxiety disorder, unspecified R00.1 Bradycardia, unspecified I10 Essential (primary) hypertension Office Visit 04/26/2019 2:00p [facility] Jose Jackson I48.0 Paroxysmal atrial Of [place] Cai DO fibrillation FACC R42 Dizziness and giddiness I51.81 Takotsubo syndrome E89.0 Postprocedural hypothyroidism I45.19 Other right bundle-branch block I87.2 Venous insufficiency (chronic) (peripheral) F41.9 Anxiety disorder, unspecified R00.1 Bradycardia, unspecified Office Visit 04/25/2019 [facility], E89.0 Postprocedural 12:40p Endocrinology of MD hawk Sarabia Z85.850 Personal history of malignant neoplasm of thyroid I48.0 Paroxysmal atrial fibrillation Assessments Date Code Description Provider 06/05/2019 I48.0 Paroxysmal atrial fibrillation Jose Cai DO FACC 06/05/2019 R42 Dizziness and giddiness Jose Cai DO FACC 06/05/2019 I51.81 Takotsubo syndrome Jose Cai, DO FACC 06/05/2019 E89.0 Postprocedural hypothyroidism Jose Cai, DO FACC 06/05/2019 I45.19 Other right bundle-branch block Jose Cai, DO FACC 06/05/2019 I87.2 Venous insufficiency (chronic) Jose Cai, DO FACC (peripheral) 06/05/2019 R00.1 Bradycardia, unspecified Jose Cai, DO FACC 06/05/2019 I10 Essential (primary) hypertension Jose Cai, DO FACC 05/04/2019 I48.0 Paroxysmal atrial fibrillation Jose Cai, DO FAC 05/04/2019 R42 Dizziness and giddiness Jose Cai, DO FAC 05/04/2019 I51.81 Takotsubo syndrome Jose Cai, DO FACC 05/04/2019 E89.0 Postprocedural hypothyroidism Jose Cai, DO FACC 05/04/2019 I45.19 Other right bundle-branch block Jose Cai, DO FACC 05/04/2019 I87.2 Venous insufficiency (chronic) Jose Cai, DO FACC (peripheral) 05/04/2019 F41.9 Anxiety disorder, unspecified Jose Cai, DO FAC 05/04/2019 R00.1 Bradycardia, unspecified Jose Cai, DO FACC 05/04/2019 I10 Essential (primary) hypertension Jose Cai, DO FACC 04/26/2019 I48.0 Paroxysmal atrial fibrillation Jose Cai, DO FACC 04/26/2019 R42 Dizziness and giddiness Jose Cai, DO FACC 04/26/2019 I51.81 Takotsubo syndrome Jose Cai, DO FAC 04/26/2019 E89.0 Postprocedural hypothyroidism Jose Cai, DO FACC 04/26/2019 I45.19 Other right bundle-branch block Jose Cai, DO FACC 04/26/2019 I87.2 Venous insufficiency (chronic) Jose Cai, DO FACC (peripheral) 04/26/2019 F41.9 Anxiety disorder, unspecified Jose Cai, DO FAC 04/26/2019 R00.1 Bradycardia, unspecified Jose Cai, DO FAC 04/25/2019 E89.0 Postprocedural hypothyroidism Bogdan Cavazos MD 04/25/2019 Z85.850 Personal history of malignant neoplasm of Bogdan Cavazos MD thyroid 04/25/2019 I48.0 Paroxysmal atrial fibrillation Bogdan Cavazos MD Plan of Treatment Future Appointment(s):07/20/2019 9:40 am - Bogdan Cavazos MD at [facility]06/05/2019 - Jose Cai DO FACCI48.0 Paroxysmal atrial fibrillationFollow up:f/u 04/2020 with EKGR42 Dizziness and pfnfnogmcP61.81 Takotsubo oqmrzambE12.0 Postprocedural ddckzzxvpvvcioZ81.19 Other right bundle-branch ffeitN68.2 Venous insufficiency (chronic) (peripheral) R00.1 Bradycardia, [id number] Essential (primary) hypertension Functional Status Description No Information Available Mental Status Description No Information Available Referrals Description No Information Available
[2019-07-17 10:59] VITALS: BP 123/74
--- NOTE | 2019-07-17 11:14 | UC ---
Abdominal Pain Female HPI - HPI Summary HPI Summary: Pt with urinary frequency, urgency an dysuria x 2 days no fever, chills. no back pain no vaginal discharge, itching, odor, no nausea medications reviewed - History of Current Complaint Chief Complaint: UCGU Stated Complaint: URINARY ISSUE Time Seen by Provider: 07/17/19 10:52 Hx Obtained From: Patient, Family/Billing Customer Service Representative Hx Last Menstrual Period: hysterectomy Severity Currently: Mild Pain Intensity: 3 Allergies/Adverse Reactions: Allergies Allergy/AdvReac Type Severity Reaction Status Date / Time latex Allergy Rash Verified 07/17/19 10:51 Sulfa (Sulfonamide Allergy Nausea And Verified 07/17/19 10:51 Antibiotics) Vomiting sulfamethoxazole Allergy Vomiting Verified 07/17/19 10:51 [From Bactrim] trimethoprim [From Bactrim] Allergy Vomiting Verified 07/17/19 10:51 naproxen AdvReac Severe Vomiting Verified 07/17/19 10:51 nitrofurantoin AdvReac Severe Vomiting Verified 07/17/19 10:51 [From Macrobid] Home Medications: Home Medications Lisinopril/Hydrochlorothiazide [Lisinopril-Hctz 10-12.5 mg Tab] 0.5 tab PO DAILY 07/17/19 [History Confirmed 07/17/19] PMH/Surg Hx/FS Hx/Imm Hx - Surgical History Surgical History: Yes Surgery Procedure, Year, and Place: HYSTERECTOMY, THYROIDECTOMY, HAND SURGERY ( right) - Family History Known Family History: Positive: Other - no FHx of breast cancer - Social History Alcohol Use: Rare Alcohol Amount: 1 glass of wine Substance Use Type: None Smoking Status (MU): Never Smoked Tobacco - Immunization History Most Recent Influenza Vaccination: up to date Most Recent Tetanus Shot: unk Most Recent Pneumonia Vaccination: up to date Review of Systems All Other Systems Reviewed And Are Negative: Yes Constitutional: Positive: Negative Genitourinary: Positive: Dysuria, Frequency, Urgency Physical Exam - Summary Physical Exam Summary: Vital Signs Reviewed: Yes A+Ox3, no distress Eyes: Conjunctiva Clear, EVGENY. EOM intact and full ENT: Hearing grossly normal TM x 2 clear, mmoist, uvula midline, no exudate, no erythema Neck: Positive: Supple Respiratory: Positive: No respiratory distress, No accessory muscle use + CTA throughout no w/r Cardiovascular: RRR nl s1, s2 no m/r CBT <2 sec abd soft + BS nt/nd no guarding, no distension, no cva Musculoskeletal Exam: GUTIERREZ x 4 without difficulty Strength Intact, ROM Intact Neurological: Positive: Alert, + sensation throughout Psychological: Positive: Normal Response To [employer] Skin: Positive: no rash, no ecchymosis Triage Information Reviewed: Yes Vital Signs: Initial Vital Signs Temp 97.5 F 07/17/19 10:51 Pulse 78 07/17/19 10:51 Resp 18 07/17/19 10:51 BP 123/74 07/17/19 10:51 Pulse Ox 99 07/17/19 10:51 Abd Pain Female Course/Dx - Course Course Of Treatment: PT with 2 days dysuria, frequency and urgency No vaginal discharge VSS non concerning exam roque tart abx culture hydrate return precautions - Differential Dx/Diagnosis Provider Diagnosis: UTI symptoms Discharge ED - Sign-Out/Discharge Documenting (check all that apply): Patient Departure All imaging exams completed and their final reports reviewed: No Studies - Discharge Plan Condition: Stable Disposition: HOME Prescriptions: Cephalexin CAP* [Keflex 500 CAP*] 500 mg PO BID #14 cap Patient Education Materials: Urinary Tract Infection in Women (ED) Referrals: Jeniffer Johnston, COOKER CASING [Primary Care Provider] - Additional Instructions: As discussed - your urine did not show an infection - you are being prescribed antibiotics because of your history of bladder infection. - stay well hydrated - drink plenty of non-alcoholic, non caffinated beverages - your urine will be further tested - if you require any changes to your treatment, we will contact you - this usually take 2 days - Contact your primary doctor to arrange a follow-up appointment next week. Contact your doctor or return with questions or concerns - Take your antibiotics exactly as prescribed until gone - Okay to alternate ibuprofen (Advil, Motrin) and Tylenol every 3 hours for pain. Take with food - Call your doctor or return with questions or concerns - Billing Disposition and Condition Condition: STABLE Disposition: Home
--- NOTE | 2019-07-18 15:47 | UC ---
- Progress Note Progress Note: please notify pt No UTI stop antibiotic see UROLOGY SURGEON if still symptomatic Course/Dx - Diagnoses Provider Diagnoses: UTI symptoms Discharge ED - Sign-Out/Discharge Documenting (check all that apply): Post-Discharge Follow Up All imaging exams completed and their final reports reviewed: No Studies - Discharge Plan Condition: Stable Disposition: HOME Prescriptions: Cephalexin CAP* [Keflex 500 CAP*] 500 mg PO BID #14 cap Patient Education Materials: Urinary Tract Infection in Women (ED) Referrals: Jeniffer Johnston TIRE SERVICER [Primary Care Provider] - Additional Instructions: As discussed - your urine did not show an infection - you are being prescribed antibiotics because of your history of bladder infection. - stay well hydrated - drink plenty of non-alcoholic, non caffinated beverages - your urine will be further tested - if you require any changes to your treatment, we will contact you - this usually take 2 days - Contact your primary doctor to arrange a follow-up appointment next week. Contact your doctor or return with questions or concerns - Take your antibiotics exactly as prescribed until gone - Okay to alternate ibuprofen (Advil, Motrin) and Tylenol every 3 hours for pain. Take with food - Call your doctor or return with questions or concerns - Billing Disposition and Condition Condition: STABLE Disposition: Home
== END 2019-07-17 11:45 | disposition home or self-care (01) ==
LOC: UCEAST 10:19
DX: R39.198 Other difficulties with micturition (principal); Z88.2 Allergy status to sulfonamides; Z91.040 Latex allergy status
CPT/HCPCS: 81003; 87086; 99212; G0463

== ENCOUNTER 2023-06-18 18:39 | Inpatient (IN) ==
[2023-06-18] MEDS ORDERED: oxyCODONE/Acetamin 5/325 mg TAB PO ONE (19:49)
[2023-06-18 20:13] LABS: ABS Eosinophils 0.1 10^3/uL (0.0-0.5); ABS Lymphocytes 0.9 10^3/uL (1.0-4.8); ABS Monocytes 0.5 10^3/uL (0.0-0.9); ABS Neutrophils 8.3 10^3/uL (1.5-7.6); Eosinophil % 0.9 %; Hematocrit 37.8 % (35-45); Hemoglobin 12.7 g/dL (11.5-14.3); Lymphocyte % 9.4 %; Mean Corpuscular Hemoglobin 30.3 pg (27-33); Mean Corpuscular Hgb Conc 33.6 g/dL (31-36); Mean Corpuscular Volume 90.3 fL (80-97); Platelet Count 215 10^3/uL (150-450); Red Blood Count 4.19 10^6/uL (3.63-4.92); Red Cell Distribution Width 13.8 % (12-17); White Blood Count 9.9 10^3/uL (3.8-11.8)
[2023-06-18 20:19] LABS: Activated Partial Thrombo Time 34.9 seconds (26.0-38.0); INR 1.35 (0.83-1.13)
[2023-06-18 20:30] LABS: Albumin 4.1 g/dL (3.2-5.2); Calcium 8.9 mg/dL (8.6-10.3); Creatinine, Serum 0.88 mg/dL (0.51-0.95); Globulin 2.1 g/dL (2-4); Total Bilirubin 0.4 mg/dL (0.2-1.0); Total Protein 6.2 g/dL (6.4-8.9)
[2023-06-18 21:51] LABS: High Sensitivity Troponin 1 Hr 4 pg/mL (<15)
[2023-06-18] MEDS ORDERED: Ondansetron 4 mg VIAL 2 MG/ML 2 ml VIAL IV PRN (23:57)
[2023-06-19] MEDS: Acetaminophen IV 1 GM/100ML 1,000 MG/100 ML BAG IV SCH ×3 (01:02→16:34)
[2023-06-19] MEDS ORDERED: Lactated Ringers 1000 ml BAG 1,000 ML IV ONE (01:38)
[2023-06-19] MEDS: Ondansetron ODT 4 mg TAB 4 MG TAB SL SCH ×3 (02:38→13:08)
[2023-06-19 05:17] LABS: ABS Eosinophils 0.1 10^3/uL (0.0-0.5); ABS Lymphocytes 0.8 10^3/uL (1.0-4.8); ABS Monocytes 0.4 10^3/uL (0.0-0.9); ABS Neutrophils 5.4 10^3/uL (1.5-7.6); Eosinophil % 0.8 %; Hematocrit 31.3 % (35-45); Hemoglobin 10.6 g/dL (11.5-14.3); Lymphocyte % 11.3 %; Mean Corpuscular Hemoglobin 30.6 pg (27-33); Mean Corpuscular Hgb Conc 33.9 g/dL (31-36); Mean Corpuscular Volume 90.2 fL (80-97); Mean Platelet Volume 6.9 fL (7.5-11.2); Platelet Count 163 10^3/uL (150-450); Red Blood Count 3.47 10^6/uL (3.63-4.92); Red Cell Distribution Width 13.7 % (12-17); White Blood Count 6.7 10^3/uL (3.8-11.8)
[2023-06-19 05:34] LABS: INR 1.35 (0.83-1.13)
[2023-06-19 05:38] LABS: Albumin 3.5 g/dL (3.2-5.2); Albumin/Globulin Ratio 1.9 (1-3); C Reactive Protein 10.65 mg/L (<8.01); Calcium 8.2 mg/dL (8.6-10.3); Creatinine, Serum 0.82 mg/dL (0.51-0.95); Globulin 1.8 g/dL (2-4); Magnesium 1.7 mg/dL (1.9-2.7); Potassium 3.6 mmol/L (3.5-5.0); Total Bilirubin 0.6 mg/dL (0.2-1.0); Total Protein 5.3 g/dL (6.4-8.9); eGFR CKD-EPI 71.8 (>60)
[2023-06-19] MEDS ORDERED: Polyethylene Glycol 3350 17 GM PACKET PO SCH (09:00)
[2023-06-19] MEDS ORDERED: Lactated Ringers 1000 ml BAG 1,000 ML IV SCH (10:23)
[2023-06-19 16:57] VITALS: BP 125/56
[2023-06-19] MEDS ORDERED: Senna TAB 8.6 mg TAB PO SCH (21:00)
== END 2023-06-19 16:57 | disposition home or self-care (01) | DRG 563 ==
LOC: ED 18:39 → SUATTDRO 23:57 → EDHOLD 23:57
PROVIDERS: ADMIT Student in an Organized Health Care Education/Training Program; ATTEND Internal Medicine